=== PATIENT | female | born 1940 | race Caucasian/White ===

== ENCOUNTER 2017-05-15 10:40 | Inpatient (IN) | payer MEDICARE ==
[~2017-05-15 10:40] MED LIST: Warfarin 7.5 MG Tab PO SCH
[2017-05-15] MEDS ORDERED: Acetaminophen 325 MG Tab PO PRN (11:16)
[2017-05-15] MEDS: Azithromycin 500 MG in Sodium Chloride 0.9% 250 ML IV SCH (11:30)
[2017-05-15] MEDS: Sodium Chloride 0.9% 1,000 ML IV SCH ×2 (11:30→23:46)
[2017-05-15] MEDS ORDERED: traMADol 50 MG Tab PO PRN (13:25)
[2017-05-15] MEDS: Furosemide 40 MG Tab PO SCH (13:30)
[2017-05-15] MEDS ORDERED: Gabapentin 100 MG Cap PO SCH (14:00)
[2017-05-15] MEDS: cefTRIAXone 1 GM in Sodium Chloride 0.9% 100 ML IV SCH (14:28)
[2017-05-15] MEDS ORDERED: Furosemide 40 MG/4 ML VIAL IVPUSH ONE (15:15)
--- NOTE | 2017-05-15 15:22 | PCM.HP ---
H&P History of Present Illness - General Date of Service: 05/15/17 Admit Problem/Dx: Admission Diagnosis/Problem Admission Diagnosis/Problem Shortness of breath Source of Information: Patient, Group Home Records, RN History Limitations: Reports: Respiratory Distress - History of Present Illness Initial Comments - Free Text/Narative: 77 yr female presents with shortness of breath, hypoglycemia, shakes and states doesn't know what is wrong with her. Onset of Symptoms: Reports: Today Symptom Onset Date: 05/15/17 Severity: Severe Improves with: Reports: Rest, Other (oxygen) Worsens with: Reports: Movement Associated Symptoms: Reports: Fever/Chills, Shortness of Breath, Weakness. Denies: Chest Pain, Cough, Nausea/Vomiting - Related Data Allergies/Adverse Reactions: Allergies Allergy/AdvReac Type Severity Reaction Status Date / Time aspirin Allergy Nausea and Verified 06/09/14 15:14 Vomiting Penicillins Allergy Rash Verified 06/09/14 15:14 Home Medications: Home Meds Furosemide [Furosemide] 80 mg PO DAILY 08/19/13 [History] Gabapentin [Neurontin] 600 mg PO TID 08/19/13 [History] Simvastatin [Zocor] 20 mg PO BEDTIME 08/19/13 [History] metFORMIN [Glucophage] 500 mg PO BIDM 08/19/13 [History] Ascorbate Calcium [Vitamin C] 500 mg PO DAILY 06/10/14 [History] Insulin Glarg,Human.Rec.Analog [LantUS] 14 unit SQ BEDTIME 06/10/14 [History] Insulin Glarg,Human.Rec.Analog [Lantus] 24 units SQ DAILY 06/10/14 [History] Sertraline [Zoloft] 100 mg PO DAILY 06/10/14 [History] Acetaminophen [Tylenol Extra Strength] 1,000 mg PO BID 10/09/14 [History] Apixaban [Eliquis] 2.5 mg PO DAILY 10/09/14 [History] Multivitamin [Multivitamins] 1 each PO DAILY 10/09/14 [History] Omeprazole [Prilosec] 40 mg PO DAILY 10/09/14 [History] Vits A and D/White Pet/Lanolin [A + D Ointment] 1 applic TOP DAILY 10/09/14 [ History] Zinc Gluconate [Zinc] 50 mg PO DAILY 10/09/14 [History] traMADol HCl [Tramadol HCl] 50 mg PO BID PRN 10/09/14 [History] Past Medical History HEENT History: Reports: Hard of Hearing, Impaired Vision Cardiovascular History: Reports: Heart Failure, Hypertension Respiratory History: Reports: COPD Genitourinary History: Reports: Chronic Renal Insuffiency Musculoskeletal History: Reports: Arthritis Endocrine/Metabolic History: Reports: Diabetes, Type II Dermatologic History: Reports: Other (See Below) Other Dermatologic History: reddened area under breasts and abdominal fold Social & Family History - Tobacco Use Smoking Status *Q: Never Smoker Second Hand Smoke Exposure: No - Caffeine Use Caffeine Use: Reports: Coffee - Alcohol Use Days Per Week of Alcohol Use: 0 - Recreational Drug Use Recreational Drug Use: No - Living Situation & Occupation Living situation: Reports: , Extended Care Facility Occupation: Retired H&P Review of Systems - Review of Systems: Review Of Systems: See Below General: Reports: Weakness Cardiovascular: Reports: Dyspnea on Exertion Gastrointestinal: Reports: Other (staff report low blood sugar) Genitourinary: Reports: Incontinence Skin: Reports: Rash Exam - Exam Exam: See Below - Vital Signs Vital Signs: Last Vital Signs Temp 98.8 F 05/15/17 11:16 Pulse 123 H 05/15/17 11:16 Resp 18 05/15/17 11:16 BP 151/97 H 05/15/17 11:16 Pulse Ox 93 L 05/15/17 11:16 - Exam Quality Assessment: Supplemental Oxygen General: Alert, Oriented HEENT: Mucosa Moist & [place], Nares Patent Lungs: Clear to Auscultation, Decreased Breath Sounds Cardiovascular: Regular Rate, Regular Rhythm (Female) Exam: Deferred Rectal (Female) Exam: Deferred Extremities: Pedal Edema, Increased Warmth, Redness Skin: Warm, Dry, Rash, Other (rash under breasts and under abdominal fold) Neuro Extensive - Mental Status: Alert - Patient Data Lab Results Last 24 hrs: Laboratory Results - last 24 hr 05/15/17 05/15/17 Range/Units 09:50 11:14 POC Glucose 113 H (74-110) mg/dL B-Natriuretic Peptide 2836 H D (0-450) pg/mL *Q Meaningful Use (ADM) - VTE *Q VTE Criteria *Q: - Stroke *Q Stroke Criteria *Q: - AMI *Q AMI Criteria *Q: - Problem List (1) Pneumonia SNOMED Code(s): 918356641 ICD Code: J18.9 - PNEUMONIA, UNSPECIFIED ORGANISM Status: Acute Priority : High Current Visit: Yes Onset Date: 05/15/17 Qualifiers: Laterality: left Lung location: lower lobe of lung (2) Diabetes mellitus type 2 SNOMED Code(s): 09427467 ICD Code: E11.9 - TYPE 2 DIABETES MELLITUS WITHOUT COMPLICATIONS Status: Acute Priority: High Current Visit: No Problem Details: 12/03/2013 Blood sugars low. Will adjust insulin Problem List Initiated/Reviewed/Updated: Yes Orders Last 24hrs: Active Orders 24 hr Category Date Time Status Patient Status [ADT] Routine ADT 05/15/17 11:16 Active Blood Glucose Check, Bedside [RC] QIDACANDBED Care 05/15/17 11:25 Active EKG Documentation Completion [RC] ASDIRECTED Care 05/15/17 11:22 Active Height and Weight [RC] DAILY Care 05/15/17 11:16 Active Intake and Output [RC] QSHIFT Care 05/15/17 11:19 Active Oxygen Therapy [RC] Q12H Care 05/15/17 11:16 Active VTE/DVT Education [RC] Per Unit Routine Care 05/15/17 11:16 Active Vital Signs [RC] Q4H Care 05/15/17 11:16 Active Consistent Carbohydrate Diet [DIET] Diet 05/15/17 Lunch Ordered Chest 1V Frontal [CR] Routine Exams 05/15/17 Taken UA W/MICROSCOPIC [URIN] Routine Lab 05/15/17 14:13 Uncollected Acetaminophen [Tylenol Extra Strength] Med 05/15/17 20:00 Active 1,000 mg PO BID Acetaminophen [Tylenol] Med 05/15/17 11:16 Active 650 mg PO Q4H PRN Ascorbic Acid [Vitamin C] Med 05/16/17 08:00 Active 500 mg PO DAILY Azithromycin [Zithromax] 500 mg Med 05/15/17 11:30 Active Sodium Chloride 0.9% [Normal Saline] 250 ml IV DAILY Ferrous Sulfate Med 05/15/17 20:00 Active 325 mg PO BID Furosemide [Lasix] Med 05/15/17 15:15 Once 40 mg IVPUSH NOW ONE Furosemide [Lasix] Med 05/15/17 13:30 Active 80 mg PO DAILY Insulin Aspart [NovoLOG] Med 05/15/17 20:00 Active 0 unit SUBCUT TID Insulin Detemir [Levemir] Med 05/15/17 20:00 Active 0 - 24 unit SUBCUT BID Levothyroxine [Synthroid] Med 05/16/17 08:00 Active 88 mcg PO DAILY Lisinopril [Prinivil] Med 05/15/17 15:15 Ordered 10 mg PO DAILY Multivitamins w-Iron/Ca/FA/Min [Thera M Plus] Med 05/16/17 08:00 Active 1 tab PO DAILY Nystatin [Nystop] Med 05/15/17 20:00 Active 0 - 1 gm TOP BID PRN Omeprazole Med 05/16/17 08:00 Active 40 mg PO DAILY Potassium Chloride [Klor-Con M20] Med 05/16/17 08:00 Active 20 meq PO DAILY Pregabalin [Lyrica] Med 05/15/17 20:00 Active 150 mg PO TID Sertraline [Zoloft] Med 05/16/17 08:00 Active 100 mg PO DAILY Sertraline [Zoloft] Med 05/16/17 08:00 Active 50 mg PO DAILY Simvastatin [Zocor] Med 05/15/17 20:00 Active 20 mg PO BEDTIME Sodium Chloride 0.9% [Normal Saline] 1,000 ml Med 05/15/17 11:30 Active IV ASDIRECTED Warfarin [Coumadin] Med 05/16/17 14:33 Active 5 mg PO SuTuThSa@1800 Warfarin [Coumadin] Med 05/15/17 18:00 Active 7.5 mg PO MoWeFr@1800 Zinc Gluconate [Zinc] Med 05/16/17 08:00 Active 50 mg PO DAILY cefTRIAXone [Rocephin] 1 gm Med 05/15/17 14:00 Active Sodium Chloride 0.9% [Normal Saline] 100 ml IV DAILY metFORMIN [Glucophage] Med 05/16/17 08:00 Hold 500 mg PO BIDMEALS traMADol [Ultram] Med 05/15/17 20:00 Active 50 mg PO TID Resuscitation Status Routine Resus Stat 05/15/17 11:16 Ordered Medication Orders Acetaminophen (Tylenol) 650 mg PO Q4H PRN PRN Reason: Pain (Mild 1-3)/fever Acetaminophen (Tylenol Extra Strength) 1,000 mg PO BID [facility] Ascorbic Acid (Vitamin C) 500 mg PO DAILY [facility] Ferrous Sulfate (Ferrous Sulfate) 325 mg PO BID [facility] Furosemide (Lasix) 80 mg PO DAILY [facility] Furosemide (Lasix) 40 mg IVPUSH NOW ONE Stop: 05/15/17 15:16 Azithromycin 500 mg/ Sodium (Chloride) 250 mls @ 250 mls/hr IV DAILY [facility] Last Admin: 05/15/17 11:30 Dose: 250 mls/hr Sodium Chloride (Normal Saline) 1,000 mls @ 75 mls/hr IV ASDIRECTED [facility] Last Admin: 05/15/17 11:30 Dose: 75 mls/hr Ceftriaxone Sodium 1 gm/ (Sodium Chloride) 100 mls @ 200 mls/hr IV DAILY [facility] Last Admin: 05/15/17 14:28 Dose: 200 mls/hr Insulin Aspart (Novolog) 0 unit SUBCUT TID [facility] PRN Reason: Protocol Insulin Detemir (Levemir) 0 - 24 unit SUBCUT BID [facility] Levothyroxine Sodium (Synthroid) 88 mcg PO DAILY [facility] Lisinopril (Prinivil) 10 mg PO DAILY [facility] Metformin HCl (Glucophage) 500 mg PO BIDMEALS [facility] Multivitamins/Minerals (Thera M Plus) 1 tab PO DAILY [facility] Nystatin (Nystop) 0 - 1 gm TOP BID PRN PRN Reason: FUNGAL INFECTION Omeprazole (Omeprazole) 40 mg PO DAILY [facility] Potassium Chloride (Klor-Con M20) 20 meq PO DAILY [facility] Pregabalin (Lyrica) 150 mg PO TID [facility] Sertraline HCl (Zoloft) 50 mg PO DAILY [facility] Sertraline HCl (Zoloft) 100 mg PO DAILY [facility] Simvastatin (Zocor) 20 mg PO BEDTIME [facility] Tramadol HCl (Ultram) 50 mg PO TID [facility] Warfarin Sodium (Coumadin) 5 mg PO SuTuThSa@1800 [facility] Warfarin Sodium (Coumadin) 7.5 mg PO MoWeFr@1800 [facility] Zinc Gluconate (Zinc) 50 mg PO DAILY [facility] Assessment/Plan Comment:: AP: Pneumonia: Chest-x-ray, CBC, EKG, CMP, blood cultures X2, UA, BNP. IV Nacl @ 75 cc/hr Azithromycin 500 mg IV q 24 hr. Rocephin 1 gm IV q 24 hr. Oxygen to keep SpO2 >91%. Diabetes Type 2: Blood sugars ac and hs Insulin BID sq. Candidiasis to skin: Keep area dry, Nystatin powder to area as ordered. DVT prevention: Coumadin as ordered PT/INR per protocol.
[2017-05-15] MEDS: Lisinopril 10 MG Tab PO SCH (15:51)
[2017-05-15] MEDS ORDERED: metFORMIN 1,000 MG Tab PO SCH (17:00)
[2017-05-15] MEDS: Warfarin 7.5 MG Tab PO SCH (17:21)
[2017-05-15] MEDS: Acetaminophen 500 MG Tab PO SCH (19:56)
[2017-05-15] MEDS: traMADol 50 MG Tab PO SCH (19:56)
[2017-05-15] MEDS: Pregabalin 75 MG Cap PO SCH (19:56)
[2017-05-15] MEDS: Simvastatin 20 MG Tab PO SCH (19:56)
[2017-05-15] MEDS ORDERED: INSULIN GLARGINE SQ SCH (20:00)
[2017-05-15] MEDS ORDERED: [UNRECOGNIZED DRUG - OTHER] SQ SCH (20:00)
[2017-05-15] MEDS ORDERED: Nystatin Topical Powder 15 GM Bottle TOP PRN (20:00)
[2017-05-15] MEDS ORDERED: Insulin Aspart 100 Units/ML 3 ML Pen SUBCUT SCH (20:00)
[2017-05-15] MEDS ORDERED: Simvastatin 40 MG Tab PO SCH (20:00)
[2017-05-15] MEDS ORDERED: Ferrous Sulfate 325 MG Tab PO SCH (20:00)
[2017-05-15] MEDS: Insulin Detemir 100 Units/ML 3 ML Pen SUBCUT SCH (20:04)
--- NOTE | 2017-05-15 20:40 | CR ---
DATE OF SERVICE: 05/15/17 CLINICAL DATA: ELEVATED WBC AP PORTABLE CHEST: Comparison is made to a prior exam dated 02/23/15. There is breathing motion artifact. The heart is enlarged. The aorta is ectatic. The pulmonary vasculature does appear prominent with some cephalization of flow consistent with pulmonary venous congestion. The proximal pulmonary arteries also appear prominent suggesting pulmonary hypertension. The patient has taken a poor inspiration. There is increased density in the left lung base consistent with basilar atelectasis or infiltrate. Pneumonia should be considered. There is slight blunting of both costophrenic angles suggesting small bilateral pleural effusions. The exam is otherwise unchanged from the prior. [id number] [facility]
[2017-05-16] MEDS: Furosemide 40 MG Tab PO SCH (07:59)
[2017-05-16] MEDS: Ferrous Sulfate 325 MG Tab PO SCH ×2 (07:59→17:31)
[2017-05-16] MEDS: Potassium Chloride 20 MEQ Tab.ER PO SCH (07:59)
[2017-05-16] MEDS ORDERED: APIXABAN 2.5 MG PO SCH (08:00)
[2017-05-16] MEDS: Zinc (Zinc Gluconate) 50 MG Tab PO SCH (08:00)
[2017-05-16] MEDS ORDERED: LANOLIN TOP SCH (08:00)
[2017-05-16] MEDS: Levothyroxine 88 MCG Tab PO SCH (08:00)
[2017-05-16] MEDS ORDERED: VITS A AND D TOP SCH (08:00)
[2017-05-16] MEDS ORDERED: WHITE PET TOP SCH (08:00)
[2017-05-16] MEDS ORDERED: Sertraline 100 MG Tab PO SCH (08:00)
[2017-05-16] MEDS ORDERED: Non-Formulary Medication 1 Each (Multivitamin [Multivitamins] 1 EACH) PO SCH (08:00)
[2017-05-16] MEDS: Multivitamins with Iron/Calcium/Folic Acid/Minerals Tab PO SCH (08:00)
[2017-05-16] MEDS ORDERED: [UNRECOGNIZED DRUG - OTHER] TOP SCH (08:00)
[2017-05-16] MEDS ORDERED: ZINC GLUCONATE 50 MG PO SCH (08:00)
[2017-05-16] MEDS: Acetaminophen 500 MG Tab PO SCH ×2 (08:00→20:02)
[2017-05-16] MEDS ORDERED: INSULIN GLARGINE SQ SCH (08:00)
[2017-05-16] MEDS ORDERED: Non-Formulary Medication 1 Each (Ascorbate Calcium [Vitamin C] 500 MG) PO SCH (08:00)
[2017-05-16] MEDS ORDERED: metFORMIN 500 MG Tab PO SCH (08:00)
[2017-05-16] MEDS: Pregabalin 75 MG Cap PO SCH ×3 (08:00→20:02)
[2017-05-16] MEDS: Sertraline 50 MG Tab PO SCH (08:01)
[2017-05-16] MEDS: Sertraline 100 MG Tab PO SCH (08:01)
[2017-05-16] MEDS: traMADol 50 MG Tab PO SCH ×3 (08:02→20:02)
[2017-05-16] MEDS: Lisinopril 10 MG Tab PO SCH (08:03)
[2017-05-16] MEDS: Ascorbic Acid 500 MG Tab PO SCH (08:08)
[2017-05-16] MEDS: Omeprazole 40 MG Cap.CR PO SCH (08:13)
[2017-05-16] MEDS: Azithromycin 500 MG in Sodium Chloride 0.9% 250 ML IV SCH (08:22)
[2017-05-16] MEDS: Insulin Aspart 100 Units/ML 3 ML Pen SUBCUT SCH ×3 (08:27→17:29)
[2017-05-16] MEDS: Insulin Detemir 100 Units/ML 3 ML Pen SUBCUT SCH ×2 (08:27→20:01)
[2017-05-16] MEDS: cefTRIAXone 1 GM in Sodium Chloride 0.9% 100 ML IV SCH (10:16)
[2017-05-16] MEDS ORDERED: Sodium Chloride 0.45% 1,000 ML IV SCH (10:30)
[2017-05-16] MEDS: Warfarin 5 MG Tab PO SCH ×2 (16:20→17:31)
[2017-05-16] MEDS: Simvastatin 20 MG Tab PO SCH (20:03)
--- NOTE | 2017-05-17 05:02 | PCM.PN ---
- General Info Date of Service: 05/16/17 Admission Dx/Problem (Free Text): Admission Diagnosis/Problem Admission Diagnosis/Problem Shortness of breath Subjective Update: 08:30 Pt awake, starting breakfast. States she is feeling well today and doesn 't remember yesterday or coming to hospital. Functional Status: Reports: Pain Controlled - Review of Systems General: Reports: Weakness HEENT: Reports: Glasses Pulmonary: Reports: No Symptoms Cardiovascular: Reports: No Symptoms Gastrointestinal: Reports: No Symptoms Genitourinary: Reports: No Symptoms - Patient Data Vitals - Most Recent: Last Vital Signs Temp 97.1 F 05/16/17 20:00 Pulse 65 05/16/17 20:00 Resp 20 05/17/17 04:00 BP 147/57 H 05/16/17 20:00 Pulse Ox 95 05/16/17 20:00 Weight - Most Recent: 348 lb 2 oz I&O - Last 24 Hours: Intake & Output 05/16/17 05/16/17 05/17/17 14:59 22:59 06:59 Intake Total 1910 Output Total 1125 Balance 785 Lab Results Last 24 Hours: Laboratory Results - last 24 hr 05/16/17 05/16/17 05/16/17 Range/Units 07:12 09:00 09:00 WBC 14.1 H D (4.0-11.0) K/uL RBC 3.57 L (3.80-5.80) M/uL Hgb 11.6 (11.5-16.5) g/dL Hct 38.6 (37.0-47.0) % MCV 108 H (76-96) fL MCH 32.5 H (27.0-32.0) pg MCHC 30.1 L (31.0-35.0) g/dL RDW 17.2 H (11.0-16.0) % Plt Count 164 (150-500) K/uL MPV 10.5 H (6.0-10.0) fL Neut % (Auto) 83.7 H (45.0-70.0) % Lymph % (Auto) 11.0 L (20.0-40.0) % [place] % (Auto) 4.7 (3.0-10.0) % Eos % (Auto) 0.5 L (1.0-5.0) % Baso % (Auto) 0.1 (0.0-0.5) % Neut # (Auto) 11.81 H (2.00-7.50) K/uL Lymph # (Auto) 1.56 (1.50-4.00) K/uL [place] # (Auto) 0.67 (0.20-0.80) K/uL Eos # (Auto) 0.07 (0.04-0.40) K/uL Baso # (Auto) 0.01 L (0.02-0.10) K/uL PT 21.0 H D (9.0-11.5) sec INR 2.2 D (1.0-3.5) Sodium (136-145) mmol/L Potassium (3.5-5.1) mmol/L Chloride (98-107) mmol/L Carbon Dioxide (21.0-32.0) mmol/L Anion Gap (5.0-15.0) mmol/L BUN (8-26) mg/dL Creatinine (0.55-1.02) mg/dL Est Cr Clr Drug Dosing Estimated GFR (MDRD) (>60) MLS/MIN BUN/Creatinine Ratio (6-25) Glucose (74-100) mg/dL POC Glucose 152 H (74-110) mg/dL Lactic Acid (0.90-1.70) mmol/L Calcium (8.5-10.1) mg/dL Total Bilirubin (0.0-1.0) mg/dL AST (15-37) U/L ALT (12-78) U/L Alkaline Phosphatase (46-116) U/L B-Natriuretic Peptide (0-450) pg/mL Total Protein (6.4-8.2) g/dL Albumin (3.4-5.0) g/dL Globulin (2.2-4.2) g/dL Albumin/Globulin Ratio (0.8-2.0) 05/16/17 05/16/17 05/16/17 Range/Units 09:00 09:00 11:11 WBC (4.0-11.0) K/uL RBC (3.80-5.80) M/uL Hgb (11.5-16.5) g/dL Hct (37.0-47.0) % MCV (76-96) fL MCH (27.0-32.0) pg MCHC (31.0-35.0) g/dL RDW (11.0-16.0) % Plt Count (150-500) K/uL MPV (6.0-10.0) fL Neut % (Auto) (45.0-70.0) % Lymph % (Auto) (20.0-40.0) % [place] % (Auto) (3.0-10.0) % Eos % (Auto) (1.0-5.0) % Baso % (Auto) (0.0-0.5) % Neut # (Auto) (2.00-7.50) K/uL Lymph # (Auto) (1.50-4.00) K/uL [place] # (Auto) (0.20-0.80) K/uL Eos # (Auto) (0.04-0.40) K/uL Baso # (Auto) (0.02-0.10) K/uL PT (9.0-11.5) sec INR (1.0-3.5) Sodium 148 H (136-145) mmol/L Potassium 4.1 (3.5-5.1) mmol/L Chloride 102 (98-107) mmol/L Carbon Dioxide 42.5 H (21.0-32.0) mmol/L Anion Gap 7.6 (5.0-15.0) mmol/L BUN 33 H D (8-26) mg/dL Creatinine 1.45 H (0.55-1.02) mg/dL Est Cr Clr Drug Dosing TNP Estimated GFR (MDRD) 35 L (>60) MLS/MIN BUN/Creatinine Ratio 22.8 (6-25) Glucose 231 H D (74-100) mg/dL POC Glucose 208 H (74-110) mg/dL Lactic Acid 1.35 (0.90-1.70) mmol/L Calcium 8.2 L (8.5-10.1) mg/dL Total Bilirubin 0.2 D (0.0-1.0) mg/dL AST 15 (15-37) U/L ALT 13 (12-78) U/L Alkaline Phosphatase 73 (46-116) U/L B-Natriuretic Peptide 5984 H D (0-450) pg/mL Total Protein 6.1 L (6.4-8.2) g/dL Albumin 2.4 L (3.4-5.0) g/dL Globulin 3.7 (2.2-4.2) g/dL Albumin/Globulin Ratio 0.7 L (0.8-2.0) 05/16/17 Range/Units 16:20 WBC (4.0-11.0) K/uL RBC (3.80-5.80) M/uL Hgb (11.5-16.5) g/dL Hct (37.0-47.0) % MCV (76-96) fL MCH (27.0-32.0) pg MCHC (31.0-35.0) g/dL RDW (11.0-16.0) % Plt Count (150-500) K/uL MPV (6.0-10.0) fL Neut % (Auto) (45.0-70.0) % Lymph % (Auto) (20.0-40.0) % [place] % (Auto) (3.0-10.0) % Eos % (Auto) (1.0-5.0) % Baso % (Auto) (0.0-0.5) % Neut # (Auto) (2.00-7.50) K/uL Lymph # (Auto) (1.50-4.00) K/uL [place] # (Auto) (0.20-0.80) K/uL Eos # (Auto) (0.04-0.40) K/uL Baso # (Auto) (0.02-0.10) K/uL PT (9.0-11.5) sec INR (1.0-3.5) Sodium (136-145) mmol/L Potassium (3.5-5.1) mmol/L Chloride (98-107) mmol/L Carbon Dioxide (21.0-32.0) mmol/L Anion Gap (5.0-15.0) mmol/L BUN (8-26) mg/dL Creatinine (0.55-1.02) mg/dL Est Cr Clr Drug Dosing Estimated GFR (MDRD) (>60) MLS/MIN BUN/Creatinine Ratio (6-25) Glucose (74-100) mg/dL POC Glucose 143 H (74-110) mg/dL Lactic Acid (0.90-1.70) mmol/L Calcium (8.5-10.1) mg/dL Total Bilirubin (0.0-1.0) mg/dL AST (15-37) U/L ALT (12-78) U/L Alkaline Phosphatase (46-116) U/L B-Natriuretic Peptide (0-450) pg/mL Total Protein (6.4-8.2) g/dL Albumin (3.4-5.0) g/dL Globulin (2.2-4.2) g/dL Albumin/Globulin Ratio (0.8-2.0) [place] Results Last 24 Hours: Microbiology 05/15/17 Unknown Urine Culture - Preliminary Urine, Marshall Cath ([place]) No Growth Med Orders - Current: Current Medications Acetaminophen (Tylenol Extra Strength) 1,000 mg PO BID [facility] Last Admin: 05/16/17 20:02 Dose: 1,000 mg Ascorbic Acid (Vitamin C) 500 mg PO DAILY [facility] Last Admin: 05/16/17 08:08 Dose: 500 mg Ferrous Sulfate (Ferrous Sulfate) 325 mg PO BID@0800,1700 [facility] Last Admin: 05/16/17 17:31 Dose: 325 mg Furosemide (Lasix) 80 mg PO DAILY [facility] Last Admin: 05/16/17 07:59 Dose: 80 mg Azithromycin 500 mg/ Sodium (Chloride) 250 mls @ 250 mls/hr IV DAILY [facility] Last Admin: 05/16/17 08:22 Dose: 250 mls/hr Ceftriaxone Sodium 1 gm/ (Sodium Chloride) 100 mls @ 200 mls/hr IV DAILY [facility] Last Admin: 05/16/17 10:16 Dose: 200 mls/hr Sodium Chloride (Sodium Chloride 0.45%) 1,000 mls @ 0 mls/hr IV ASDIRECTED [facility] PRN Reason: KVO Last Admin: 05/16/17 10:44 Dose: 30 mls/hr Insulin Aspart (Novolog) 0 unit SUBCUT 0800,1200,1700 [facility] PRN Reason: Protocol Last Admin: 05/16/17 17:29 Dose: 3 units Insulin Detemir (Levemir) 0 - 24 unit SUBCUT BID [facility] Last Admin: 05/16/17 20:01 Dose: 14 unit Levothyroxine Sodium (Synthroid) 88 mcg PO DAILY [facility] Last Admin: 05/16/17 08:00 Dose: 88 mcg Lisinopril (Prinivil) 10 mg PO DAILY [facility] Last Admin: 05/16/17 08:03 Dose: 10 mg [facility]) [facility] Multivitamins/Minerals (Thera M Plus) 1 tab PO DAILY [facility] Last Admin: 05/16/17 08:00 Dose: 1 tab Nystatin (Nystop) 0 - 1 gm TOP BID PRN PRN Reason: FUNGAL INFECTION Omeprazole (Omeprazole) 40 mg PO DAILY [facility] Last Admin: 05/16/17 08:13 Dose: 40 mg Potassium Chloride (Klor-Con M20) 20 meq PO DAILY [facility] Last Admin: 05/16/17 07:59 Dose: 20 meq Pregabalin (Lyrica) 150 mg PO TID [facility] Last Admin: 05/16/17 20:02 Dose: 150 mg Sertraline HCl (Zoloft) 50 mg PO DAILY [facility] Last Admin: 05/16/17 08:01 Dose: 50 mg Sertraline HCl (Zoloft) 100 mg PO DAILY [facility] Last Admin: 05/16/17 08:01 Dose: 100 mg Simvastatin (Zocor) 20 mg PO BEDTIME [facility] Last Admin: 05/16/17 20:03 Dose: 20 mg Tramadol HCl (Ultram) 50 mg PO TID [facility] Last Admin: 05/16/17 20:02 Dose: 50 mg Warfarin Sodium (Coumadin) 5 mg PO SuTuThSa@1800 [facility] Last Admin: 05/16/17 17:31 Dose: 5 mg Warfarin Sodium (Coumadin) 7.5 mg PO MoWeFr@1800 [facility] Last Admin: 05/15/17 17:21 Dose: 7.5 mg Zinc Gluconate (Zinc) 50 mg PO DAILY [facility] Last Admin: 05/16/17 08:00 Dose: 50 mg Discontinued Medications Acetaminophen (Tylenol) 650 mg PO Q4H PRN PRN Reason: Pain (Mild 1-3)/fever Ferrous Sulfate (Ferrous Sulfate) 325 mg PO BID [facility] Last Admin: 05/15/17 20:02 Dose: Not Given Furosemide (Lasix) 40 mg IVPUSH NOW ONE Stop: 05/15/17 15:16 Last Admin: 05/15/17 15:51 Dose: 40 mg Gabapentin (Neurontin) 600 mg PO TID [facility] Last Admin: 05/16/17 14:05 Dose: Not Given Sodium Chloride (Normal Saline) 1,000 mls @ 75 mls/hr IV ASDIRECTED [facility] Last Admin: 05/15/17 23:46 Dose: 75 mls/hr Insulin Aspart (Novolog) 0 unit SUBCUT TID [facility] PRN Reason: Protocol Last Admin: 05/16/17 00:49 Dose: Not Given Tramadol HCl (Ultram) 50 mg PO BID PRN PRN Reason: Pain Warfarin Sodium (Coumadin) 7.5 mg PO MoWeFr [facility] Last Admin: 05/16/17 11:45 Dose: Not Given - Exam Quality Assessment: Urine Catheter General: Alert, Cooperative, No Acute Distress HEENT: Mucous Membr. Moist/[place] Neck: Supple Lungs: Normal Respiratory Effort, Decreased Breath Sounds. No: Crackles, Rhonchi Cardiovascular: Regular Rate, Regular Rhythm GI/Abdominal Exam: Normal Bowel Sounds, Soft Extremities: Normal Capillary Refill, Other (Large, fleshy arms and legs, hard for pt to move legs.) Peripheral Pulses: 2+: Radial (L), Radial (R), Dorsalis Pedis (L), Dorsalis Pedis (R) Skin: Warm, Dry, Rash (rash under breasts and under abdominal fold, order for applying nystatin) Wound/Incisions: Other (erythema to left thigh improved.) Neurological: Normal Speech Psy/Mental Status: Alert, Normal Affect - Problem List & Annotations (1) Pneumonia SNOMED Code(s): 317905867 Code(s): J18.9 - PNEUMONIA, UNSPECIFIED ORGANISM Status: Acute Priority: High Current Visit: Yes Onset Date: 05/15/17 Qualifiers: Laterality: left Lung location: lower lobe of lung (2) Diabetes mellitus type 2 SNOMED Code(s): 61563389 Code(s): E11.9 - TYPE 2 DIABETES MELLITUS WITHOUT COMPLICATIONS Status: Acute Priority: High Current Visit: No Annotation/Comment:: 05/16/17 Blood sugars monitored ac and hs. Novolog sliding scale utilized. - Problem List Review Problem List Initiated/Reviewed/Updated: Yes - My Orders Last 24 Hours: My Active Orders 05/16/17 08:00 Ascorbic Acid [Vitamin C] 500 mg PO DAILY Ferrous Sulfate 325 mg PO BID@0800,1700 Insulin Aspart [NovoLOG] 0 unit SUBCUT 0800,1200,1700 Levothyroxine [Synthroid] 88 mcg PO DAILY Multivitamins w-Iron/Ca/FA/Min [Thera M Plus] 1 tab PO DAILY Omeprazole 40 mg PO DAILY Potassium Chloride [Klor-Con M20] 20 meq PO DAILY Sertraline [Zoloft] 100 mg PO DAILY Sertraline [Zoloft] 50 mg PO DAILY Zinc Gluconate [Zinc] 50 mg PO DAILY metFORMIN [Glucophage] 500 mg PO BIDMEALS 05/16/17 10:30 Sodium Chloride 0.45% 1,000 ml IV ASDIRECTED 05/16/17 13:42 CULTURE MRSA SURVEY [RM] Routine 05/16/17 14:33 Warfarin [Coumadin] 5 mg PO SuTuThSa@1800 05/17/17 07:00 B-TYPE NATRIURETIC PEPTIDE,BNP [CHEM] Routine BASIC METABOLIC PANEL,BMP [CHEM] Routine CBC WITH AUTO DIFF [HEME] Routine - Assessment Assessment:: 05-16-17 Pneumonia: Improved WBC today. Pt alert today and talkative and feeling better. Diabetes: Impaired skin condition: - Plan Plan:: 05-16-17 AP: Pneumonia: CBC, BMP, BNP in am. Sodium elevated will change IV fluid to 0.45% Nacl IV 0.45 Nacl @ TKO Azithromycin 500 mg IV q 24 hr. Continue, WBC improved Rocephin 1 gm IV q 24 hr. Oxygen to keep SpO2 >91%. Diabetes Type 2: Blood sugars ac and hs Levemir Insulin BID sq. Continue w novolog sliding scale. Candidiasis to skin: Keep area dry, Nystatin powder to area as ordered. Marshall catheter started, will assist with prevention of skin breakdown. DVT prevention: Coumadin as ordered PT/INR per protocol.
[2017-05-17] MEDS: Zinc (Zinc Gluconate) 50 MG Tab PO SCH (08:11)
[2017-05-17] MEDS: Omeprazole 40 MG Cap.CR PO SCH (08:11)
[2017-05-17] MEDS: Levothyroxine 88 MCG Tab PO SCH (08:11)
[2017-05-17] MEDS: Sertraline 100 MG Tab PO SCH (08:12)
[2017-05-17] MEDS: Sertraline 50 MG Tab PO SCH (08:12)
[2017-05-17] MEDS: Multivitamins with Iron/Calcium/Folic Acid/Minerals Tab PO SCH (08:12)
[2017-05-17] MEDS: Ferrous Sulfate 325 MG Tab PO SCH ×2 (08:12→17:13)
[2017-05-17] MEDS: Potassium Chloride 20 MEQ Tab.ER PO SCH (08:12)
[2017-05-17] MEDS: Furosemide 40 MG Tab PO SCH (08:12)
[2017-05-17] MEDS: traMADol 50 MG Tab PO SCH ×3 (08:12→19:55)
[2017-05-17] MEDS: Ascorbic Acid 500 MG Tab PO SCH (08:12)
[2017-05-17] MEDS: Acetaminophen 500 MG Tab PO SCH ×2 (08:13→19:55)
[2017-05-17] MEDS: Lisinopril 10 MG Tab PO SCH (08:13)
[2017-05-17] MEDS: Pregabalin 75 MG Cap PO SCH ×3 (08:20→19:55)
[2017-05-17] MEDS: Azithromycin 500 MG in Sodium Chloride 0.9% 250 ML IV SCH (08:22)
[2017-05-17] MEDS ORDERED: Furosemide 20 MG/2 ML VIAL IVPUSH ONE (08:25)
[2017-05-17] MEDS: Insulin Detemir 100 Units/ML 3 ML Pen SUBCUT SCH ×2 (08:31→19:56)
[2017-05-17] MEDS: Insulin Aspart 100 Units/ML 3 ML Pen SUBCUT SCH ×3 (08:31→17:13)
--- NOTE | 2017-05-17 08:35 | PCM.PN ---
- General Info Date of Service: 05/17/17 Admission Dx/Problem (Free Text): Admission Diagnosis/Problem Admission Diagnosis/Problem Shortness of breath Subjective Update: Pt states she is feeling better. States slept well from midnight to this am. States some pain to joints and back with arthritis. Functional Status: Reports: Tolerating Diet - Review of Systems General: Reports: Weakness HEENT: Reports: No Symptoms, Glasses Pulmonary: Denies: Cough, Sputum Cardiovascular: Reports: No Symptoms Gastrointestinal: Reports: Diarrhea. Denies: Nausea, Vomiting Genitourinary: Reports: Other (putnam catheter) Musculoskeletal: Reports: Back Pain Skin: Reports: Rash Neurological: Reports: No Symptoms Psychiatric: Reports: No Symptoms - Patient Data Vitals - Most Recent: Last Vital Signs Temp 97.1 F 05/16/17 20:00 Pulse 65 05/16/17 20:00 Resp 20 05/17/17 04:00 BP 151/82 H 05/17/17 08:13 Pulse Ox 95 05/16/17 20:00 Weight - Most Recent: 348 lb 2 oz I&O - Last 24 Hours: Intake & Output 05/16/17 05/17/17 05/17/17 22:59 06:59 14:59 Intake Total 1910 669 Output Total 1125 700 Balance 785 -31 Lab Results Last 24 Hours: Laboratory Results - last 24 hr 05/16/17 05/16/17 05/16/17 Range/Units 09:00 09:00 09:00 WBC 14.1 H D (4.0-11.0) K/uL RBC 3.57 L (3.80-5.80) M/uL Hgb 11.6 (11.5-16.5) g/dL Hct 38.6 (37.0-47.0) % MCV 108 H (76-96) fL MCH 32.5 H (27.0-32.0) pg MCHC 30.1 L (31.0-35.0) g/dL RDW 17.2 H (11.0-16.0) % Plt Count 164 (150-500) K/uL MPV 10.5 H (6.0-10.0) fL Neut % (Auto) 83.7 H (45.0-70.0) % Lymph % (Auto) 11.0 L (20.0-40.0) % [place] % (Auto) 4.7 (3.0-10.0) % Eos % (Auto) 0.5 L (1.0-5.0) % Baso % (Auto) 0.1 (0.0-0.5) % Neut # (Auto) 11.81 H (2.00-7.50) K/uL Lymph # (Auto) 1.56 (1.50-4.00) K/uL [place] # (Auto) 0.67 (0.20-0.80) K/uL Eos # (Auto) 0.07 (0.04-0.40) K/uL Baso # (Auto) 0.01 L (0.02-0.10) K/uL PT 21.0 H D (9.0-11.5) sec INR 2.2 D (1.0-3.5) Sodium 148 H (136-145) mmol/L Potassium 4.1 (3.5-5.1) mmol/L Chloride 102 (98-107) mmol/L Carbon Dioxide 42.5 H (21.0-32.0) mmol/L Anion Gap 7.6 (5.0-15.0) mmol/L BUN 33 H D (8-26) mg/dL Creatinine 1.45 H (0.55-1.02) mg/dL Est Cr Clr Drug Dosing TNP Estimated GFR (MDRD) 35 L (>60) MLS/MIN BUN/Creatinine Ratio 22.8 (6-25) Glucose 231 H D (74-100) mg/dL POC Glucose (74-110) mg/dL Lactic Acid (0.90-1.70) mmol/L Calcium 8.2 L (8.5-10.1) mg/dL Total Bilirubin 0.2 D (0.0-1.0) mg/dL AST 15 (15-37) U/L ALT 13 (12-78) U/L Alkaline Phosphatase 73 (46-116) U/L B-Natriuretic Peptide 5984 H D (0-450) pg/mL Total Protein 6.1 L (6.4-8.2) g/dL Albumin 2.4 L (3.4-5.0) g/dL Globulin 3.7 (2.2-4.2) g/dL Albumin/Globulin Ratio 0.7 L (0.8-2.0) 05/16/17 05/16/17 05/16/17 Range/Units 09:00 11:11 16:20 WBC (4.0-11.0) K/uL RBC (3.80-5.80) M/uL Hgb (11.5-16.5) g/dL Hct (37.0-47.0) % MCV (76-96) fL MCH (27.0-32.0) pg MCHC (31.0-35.0) g/dL RDW (11.0-16.0) % Plt Count (150-500) K/uL MPV (6.0-10.0) fL Neut % (Auto) (45.0-70.0) % Lymph % (Auto) (20.0-40.0) % [place] % (Auto) (3.0-10.0) % Eos % (Auto) (1.0-5.0) % Baso % (Auto) (0.0-0.5) % Neut # (Auto) (2.00-7.50) K/uL Lymph # (Auto) (1.50-4.00) K/uL [place] # (Auto) (0.20-0.80) K/uL Eos # (Auto) (0.04-0.40) K/uL Baso # (Auto) (0.02-0.10) K/uL PT (9.0-11.5) sec INR (1.0-3.5) Sodium (136-145) mmol/L Potassium (3.5-5.1) mmol/L Chloride (98-107) mmol/L Carbon Dioxide (21.0-32.0) mmol/L Anion Gap (5.0-15.0) mmol/L BUN (8-26) mg/dL Creatinine (0.55-1.02) mg/dL Est Cr Clr Drug Dosing Estimated GFR (MDRD) (>60) MLS/MIN BUN/Creatinine Ratio (6-25) Glucose (74-100) mg/dL POC Glucose 208 H 143 H (74-110) mg/dL Lactic Acid 1.35 (0.90-1.70) mmol/L Calcium (8.5-10.1) mg/dL Total Bilirubin (0.0-1.0) mg/dL AST (15-37) U/L ALT (12-78) U/L Alkaline Phosphatase (46-116) U/L B-Natriuretic Peptide (0-450) pg/mL Total Protein (6.4-8.2) g/dL Albumin (3.4-5.0) g/dL Globulin (2.2-4.2) g/dL Albumin/Globulin Ratio (0.8-2.0) 05/17/17 05/17/17 Range/Units 07:10 07:10 WBC 8.4 D (4.0-11.0) K/uL RBC 3.45 L (3.80-5.80) M/uL Hgb 11.5 (11.5-16.5) g/dL Hct 37.1 (37.0-47.0) % MCV 108 H (76-96) fL MCH 33.3 H (27.0-32.0) pg MCHC 31.0 (31.0-35.0) g/dL RDW 17.0 H (11.0-16.0) % Plt Count 159 (150-500) K/uL MPV 10.3 H (6.0-10.0) fL Neut % (Auto) 67.1 (45.0-70.0) % Lymph % (Auto) 21.4 (20.0-40.0) % [place] % (Auto) 8.2 (3.0-10.0) % Eos % (Auto) 3.2 (1.0-5.0) % Baso % (Auto) 0.1 (0.0-0.5) % Neut # (Auto) 5.64 (2.00-7.50) K/uL Lymph # (Auto) 1.80 (1.50-4.00) K/uL [place] # (Auto) 0.69 (0.20-0.80) K/uL Eos # (Auto) 0.27 (0.04-0.40) K/uL Baso # (Auto) 0.01 L (0.02-0.10) K/uL PT (9.0-11.5) sec INR (1.0-3.5) Sodium 150 H (136-145) mmol/L Potassium 4.4 (3.5-5.1) mmol/L Chloride 106 (98-107) mmol/L Carbon Dioxide 45.0 H (21.0-32.0) mmol/L Anion Gap 3.4 L (5.0-15.0) mmol/L BUN 31 H (8-26) mg/dL Creatinine 1.43 H (0.55-1.02) mg/dL Est Cr Clr Drug Dosing 26.06 Estimated GFR (MDRD) 36 L (>60) MLS/MIN BUN/Creatinine Ratio 21.7 (6-25) Glucose 100 D (74-100) mg/dL POC Glucose (74-110) mg/dL Lactic Acid (0.90-1.70) mmol/L Calcium 8.2 L (8.5-10.1) mg/dL Total Bilirubin (0.0-1.0) mg/dL AST (15-37) U/L ALT (12-78) U/L Alkaline Phosphatase (46-116) U/L B-Natriuretic Peptide 3342 H D (0-450) pg/mL Total Protein (6.4-8.2) g/dL Albumin (3.4-5.0) g/dL Globulin (2.2-4.2) g/dL Albumin/Globulin Ratio (0.8-2.0) [place] Results Last 24 Hours: Microbiology 05/15/17 Unknown Urine Culture - Preliminary Urine, Putnam Cath ([place]) No Growth Med Orders - Current: Current Medications Acetaminophen (Tylenol Extra Strength) 1,000 mg PO BID [facility] Last Admin: 05/17/17 08:13 Dose: 1,000 mg Ascorbic Acid (Vitamin C) 500 mg PO DAILY [facility] Last Admin: 05/17/17 08:12 Dose: 500 mg Ferrous Sulfate (Ferrous Sulfate) 325 mg PO BID@0800,1700 [facility] Last Admin: 05/17/17 08:12 Dose: 325 mg Furosemide (Lasix) 80 mg PO DAILY [facility] Last Admin: 05/17/17 08:12 Dose: 80 mg Furosemide (Lasix) 20 mg IVPUSH ONETIME ONE Stop: 05/17/17 08:26 Azithromycin 500 mg/ Sodium (Chloride) 250 mls @ 250 mls/hr IV DAILY [facility] Last Admin: 05/17/17 08:22 Dose: 250 mls/hr Ceftriaxone Sodium 1 gm/ (Sodium Chloride) 100 mls @ 200 mls/hr IV DAILY [facility] Last Admin: 05/16/17 10:16 Dose: 200 mls/hr Sodium Chloride (Sodium Chloride 0.45%) 1,000 mls @ 0 mls/hr IV ASDIRECTED [facility] PRN Reason: KVO Last Admin: 05/16/17 10:44 Dose: 30 mls/hr Insulin Aspart (Novolog) 0 unit SUBCUT 0800,1200,1700 [facility] PRN Reason: Protocol Last Admin: 05/16/17 17:29 Dose: 3 units Insulin Detemir (Levemir) 0 - 24 unit SUBCUT BID [facility] Last Admin: 05/16/17 20:01 Dose: 14 unit Levothyroxine Sodium (Synthroid) 88 mcg PO DAILY [facility] Last Admin: 05/17/17 08:11 Dose: 88 mcg Lisinopril (Prinivil) 20 mg PO DAILY [facility] Metformin HCl (Glucophage) 500 mg PO BIDMEALS [facility] Multivitamins/Minerals (Thera M Plus) 1 tab PO DAILY [facility] Last Admin: 05/17/17 08:12 Dose: 1 tab Nystatin (Nystop) 0 - 1 gm TOP BID PRN PRN Reason: FUNGAL INFECTION Omeprazole (Omeprazole) 40 mg PO DAILY [facility] Last Admin: 05/17/17 08:11 Dose: 40 mg Potassium Chloride (Klor-Con M20) 20 meq PO DAILY [facility] Last Admin: 05/17/17 08:12 Dose: 20 meq Pregabalin (Lyrica) 150 mg PO TID [facility] Last Admin: 05/17/17 08:20 Dose: 150 mg Sertraline HCl (Zoloft) 50 mg PO DAILY [facility] Last Admin: 05/17/17 08:12 Dose: 50 mg Sertraline HCl (Zoloft) 100 mg PO DAILY [facility] Last Admin: 05/17/17 08:12 Dose: 100 mg Simvastatin (Zocor) 20 mg PO BEDTIME [facility] Last Admin: 05/16/17 20:03 Dose: 20 mg Tramadol HCl (Ultram) 50 mg PO TID [facility] Last Admin: 05/17/17 08:12 Dose: 50 mg Warfarin Sodium (Coumadin) 5 mg PO SuTuThSa@1800 [facility] Last Admin: 05/16/17 17:31 Dose: 5 mg Warfarin Sodium (Coumadin) 7.5 mg PO MoWeFr@1800 [facility] Last Admin: 05/15/17 17:21 Dose: 7.5 mg Zinc Gluconate (Zinc) 50 mg PO DAILY [facility] Last Admin: 05/17/17 08:11 Dose: 50 mg Discontinued Medications Acetaminophen (Tylenol) 650 mg PO Q4H PRN PRN Reason: Pain (Mild 1-3)/fever Ferrous Sulfate (Ferrous Sulfate) 325 mg PO BID [facility] Last Admin: 05/15/17 20:02 Dose: Not Given Furosemide (Lasix) 40 mg IVPUSH NOW ONE Stop: 05/15/17 15:16 Last Admin: 05/15/17 15:51 Dose: 40 mg Gabapentin (Neurontin) 600 mg PO TID [facility] Last Admin: 05/16/17 14:05 Dose: Not Given Sodium Chloride (Normal Saline) 1,000 mls @ 75 mls/hr IV ASDIRECTED [facility] Last Admin: 05/15/17 23:46 Dose: 75 mls/hr Insulin Aspart (Novolog) 0 unit SUBCUT TID [facility] PRN Reason: Protocol Last Admin: 05/16/17 00:49 Dose: Not Given Lisinopril (Prinivil) 10 mg PO DAILY [facility] Last Admin: 05/17/17 08:13 Dose: 10 mg Tramadol HCl (Ultram) 50 mg PO BID PRN PRN Reason: Pain Warfarin Sodium (Coumadin) 7.5 mg PO MoWeFr [facility] Last Admin: 05/16/17 11:45 Dose: Not Given - Exam Quality Assessment: Supplemental Oxygen, Urine Catheter, DVT Prophylaxis, Skin Breakdown General: Alert, Oriented HEENT: Pupils Reactive, Mucous Membr. Moist/[place] Neck: Supple Lungs: Clear to Auscultation, Normal Respiratory Effort, Decreased Breath Sounds Cardiovascular: Regular Rate, Regular Rhythm GI/Abdominal Exam: Normal Bowel Sounds, Soft, Non-Tender (Female) Exam: Normal External Exam Extremities: Normal Capillary Refill, Pedal Edema (more pronounced to left foot , dependent), Increased Warmth (left thigh, but improved). No: Normal Range of Motion Peripheral Pulses: 2+: Radial (L), Radial (R), Dorsalis Pedis (L), Dorsalis Pedis (R) Skin: Warm, Dry, Rash (groin, abdominal fold improved and more pink, redness continues below breast folds.) Psy/Mental Status: Alert, Normal Affect, Normal Mood - Problem List & Annotations (1) Pneumonia SNOMED Code(s): 104122174 Code(s): J18.9 - PNEUMONIA, UNSPECIFIED ORGANISM Status: Acute Priority: High Current Visit: Yes Onset Date: 05/15/17 Qualifiers: Laterality: left Lung location: lower lobe of lung Annotation/Comment:: : Continue with IV antibiotic one more day. IV change to saline lock. Increase activity today, up in chair. Continue oxygen, pt on this continuous in home. (2) Diabetes mellitus type 2 SNOMED Code(s): 77406158 Code(s): E11.9 - TYPE 2 DIABETES MELLITUS WITHOUT COMPLICATIONS Status: Acute Priority: High Current Visit: No Annotation/Comment:: 05-17-2017 Blood sugars monitored ac and hs. Novolog sliding scale utilized. Am blood sugar is 100. Appetite is good. continue with skin care and application of nystatin to skin folds. - Problem List Review Problem List Initiated/Reviewed/Updated: Yes - My Orders Last 24 Hours: My Active Orders 05/16/17 08:00 Ascorbic Acid [Vitamin C] 500 mg PO DAILY Ferrous Sulfate 325 mg PO BID@0800,1700 Insulin Aspart [NovoLOG] 0 unit SUBCUT 0800,1200,1700 Levothyroxine [Synthroid] 88 mcg PO DAILY Multivitamins w-Iron/Ca/FA/Min [Thera M Plus] 1 tab PO DAILY Omeprazole 40 mg PO DAILY Potassium Chloride [Klor-Con M20] 20 meq PO DAILY Sertraline [Zoloft] 100 mg PO DAILY Sertraline [Zoloft] 50 mg PO DAILY Zinc Gluconate [Zinc] 50 mg PO DAILY metFORMIN [Glucophage] 500 mg PO BIDMEALS 05/16/17 10:30 Sodium Chloride 0.45% 1,000 ml IV ASDIRECTED 05/16/17 13:42 CULTURE MRSA SURVEY [RM] Routine 05/16/17 14:33 Warfarin [Coumadin] 5 mg PO SuTuThSa@1800 05/17/17 08:25 Furosemide [Lasix] 20 mg IVPUSH ONETIME ONE 05/18/17 07:00 BASIC METABOLIC PANEL,BMP [CHEM] Routine CBC WITH AUTO DIFF [HEME] Routine TSH ULTRASENSITIVE [CHEM] Routine 05/18/17 08:00 Lisinopril [Prinivil] 20 mg PO DAILY - Assessment Assessment:: 05-17-17 Pneumonia: Normal WBC today. Pt alert today and talkative and feeling better. CBC in am. Increase activity today. Heart failure: continue with daily weight. Small dose IV lasix today and increase Lisinopril. BNP improved today, still elevated. BMP in am. D/c putnam catheter today. Diabetes: Continue with insulin as ordered, consistent carb diet. Impaired skin condition: Continue present medication, keep area dry. - Plan Plan:: 05-17-17 AP: Pneumonia: CBC, BMP, BNP in am. D/c Iv fluids today, change to saline lock. Increase activity to up in chair today. Azithromycin 500 mg IV q 24 hr. Continue, WBC normal Rocephin 1 gm IV q 24 hr. Oxygen to keep SpO2 >91%. Diabetes Type 2: Blood sugars ac and hs Levemir Insulin BID sq. Continue w novolog sliding scale. Candidiasis to skin: Keep area dry, Nystatin powder to area as ordered. Putnam catheter started, will assist with prevention of skin breakdown. D/C putnam catheter today. DVT prevention: Coumadin as ordered PT/INR per protocol.
[2017-05-17] MEDS: cefTRIAXone 1 GM in Sodium Chloride 0.9% 100 ML IV SCH (09:37)
[2017-05-17] MEDS: Warfarin 7.5 MG Tab PO SCH (17:13)
[2017-05-17] MEDS: Simvastatin 20 MG Tab PO SCH (19:55)
[2017-05-17] MEDS: Nystatin Topical Powder 15 GM Bottle TOP SCH (19:57)
[2017-05-18] MEDS: Azithromycin 500 MG in Sodium Chloride 0.9% 250 ML IV SCH (07:54)
[2017-05-18] MEDS ORDERED: Lisinopril 20 MG Tab PO SCH (08:00)
[2017-05-18] MEDS: Omeprazole 40 MG Cap.CR PO SCH (08:01)
[2017-05-18] MEDS: Furosemide 40 MG Tab PO SCH (08:01)
[2017-05-18] MEDS: Ferrous Sulfate 325 MG Tab PO SCH (08:01)
[2017-05-18] MEDS: Acetaminophen 500 MG Tab PO SCH (08:01)
[2017-05-18] MEDS: Zinc (Zinc Gluconate) 50 MG Tab PO SCH (08:02)
[2017-05-18] MEDS: Potassium Chloride 20 MEQ Tab.ER PO SCH (08:02)
[2017-05-18] MEDS: traMADol 50 MG Tab PO SCH (08:02)
[2017-05-18] MEDS: Sertraline 100 MG Tab PO SCH (08:02)
[2017-05-18] MEDS: Pregabalin 75 MG Cap PO SCH (08:02)
[2017-05-18] MEDS: Multivitamins with Iron/Calcium/Folic Acid/Minerals Tab PO SCH (08:02)
[2017-05-18 08:03] VITALS: BP 131/77
[2017-05-18] MEDS: Levothyroxine 88 MCG Tab PO SCH (08:03)
[2017-05-18] MEDS: Sertraline 50 MG Tab PO SCH (08:03)
[2017-05-18] MEDS: Ascorbic Acid 500 MG Tab PO SCH (08:03)
[2017-05-18] MEDS: Nystatin Topical Powder 15 GM Bottle TOP SCH (08:28)
[2017-05-18] MEDS: Insulin Detemir 100 Units/ML 3 ML Pen SUBCUT SCH (08:33)
[2017-05-18] MEDS: Insulin Aspart 100 Units/ML 3 ML Pen SUBCUT SCH (08:34)
--- NOTE | 2017-05-18 08:47 | PCM.DCSUM1 ---
Discharge Summary - Hospital Course Free Text/Narrative:: 77 yr female presented with pneumonia, shortness of breath and leukocytosis. Hx of diabetes Type 2, rash to skin folds, cellulitus left thigh, decubitus right buttock. Azithromycin 500 mg IV X 4 days, Rocephin 1 gm IV X 4day. Nystatin powder to skin folds. Meplix to right decubitus, change every 3 day, monitor daily. - Discharge Data Discharge Date: 05/18/17 Discharge Disposition: DC/[facility] Condition: Good - Discharge Diagnosis/Problem(s) (1) Pneumonia SNOMED Code(s): 197483819 ICD Code: J18.9 - PNEUMONIA, UNSPECIFIED ORGANISM Status: Acute Priority : High Current Visit: Yes Onset Date: 05/15/17 Problem Details: 05/17/17: Continue with IV antibiotic one more day. IV change to saline lock. Increase activity today, up in chair. Continue oxygen, pt on this continuous in home. 05/18/17 AM: Continue Azithromycin 250 mg PO X 5 day. Qualifiers: Laterality: left Lung location: lower lobe of lung (2) Diabetes mellitus type 2 SNOMED Code(s): 57945133 ICD Code: E11.9 - TYPE 2 DIABETES MELLITUS WITHOUT COMPLICATIONS Status: Acute Priority: High Current Visit: No Problem Details: 05-17-2017 Blood sugars monitored ac and hs. Novolog sliding scale utilized. Am blood sugar is 100. Appetite is good. continue with skin care and application of nystatin to skin folds. 05-18-17 Continue with ac and hs blodd sugar and sliding scale. FBS 138 today. continue with nystatin powder to skin folds, bid. - Patient Instructions Diet, Other: consistent carbohydrate Activity: As Tolerated, Full Weight Bearing Activity, Other: use walker, recommend ambulation bid-tid in home Showering/Bathing: May Shower Wound/Incision, Other: change dressing every 3 days and prn to right buttock Notify Provider of: Fever, Increased Pain - Discharge Plan Home Medications: Home Meds Furosemide [Furosemide] 80 mg PO DAILY 08/19/13 [History] Gabapentin [Neurontin] 600 mg PO TID 08/19/13 [History] Simvastatin [Zocor] 20 mg PO BEDTIME 08/19/13 [History] metFORMIN [Glucophage] 500 mg PO BIDM 08/19/13 [History] Ascorbate Calcium [Vitamin C] 500 mg PO DAILY 06/10/14 [History] Insulin Glarg,Human.Rec.Analog [LantUS] 14 unit SQ BEDTIME 06/10/14 [History] Insulin Glarg,Human.Rec.Analog [Lantus] 24 units SQ DAILY 06/10/14 [History] Sertraline [Zoloft] 100 mg PO DAILY 06/10/14 [History] Acetaminophen [Tylenol Extra Strength] 1,000 mg PO BID 10/09/14 [History] Apixaban [Eliquis] 2.5 mg PO DAILY 10/09/14 [History] Multivitamin [Multivitamins] 1 each PO DAILY 10/09/14 [History] Omeprazole [Prilosec] 40 mg PO DAILY 10/09/14 [History] Vits A and D/White Pet/Lanolin [A + D Ointment] 1 applic TOP DAILY 10/09/14 [ History] Zinc Gluconate [Zinc] 50 mg PO DAILY 10/09/14 [History] traMADol HCl [Tramadol HCl] 50 mg PO BID PRN 10/09/14 [History] - Discharge Summary/Plan Comment Discharge Summary/Plan Comment: [facility] Continue with Oxygen per N/C continuous. Pneumonia: Azithromycin 250 mg PO X 5 day. Recommend cough and deep breath and ambulation bid to tid in hallway at [facility]. as tolerated. Decubitus: Change dressing every 3 day, Monitor daily and prn Diabetes Type 2: Continue with present regime. Rash to skin folds: Continue with bid nystatin powder. Keep area dry. Monitor bid and prn. Hypothyroid, controlled: TSH level checked and normal 2.64 continue present dose. Cellulitis left thigh: Monitor area daily Bactrim DS 1 tablet PO bid X 7 days. - General Info Date of Service: 05/18/17 Admission Dx/Problem (Free Text: Admission Diagnosis/Problem Admission Diagnosis/Problem Shortness of breath Functional Status: Reports: Tolerating Diet, Ambulating, Other (assist of walker , up in chair) - Review of Systems General: Reports: No Symptoms HEENT: Reports: No Symptoms, Glasses Pulmonary: Reports: No Symptoms Cardiovascular: Reports: No Symptoms Gastrointestinal: Reports: No Symptoms Genitourinary: Reports: Incontinence Skin: Reports: Rash Neurological: Reports: No Symptoms Psychiatric: Reports: No Symptoms - Patient Data Vitals - Most Recent: Last Vital Signs Temp 96.3 F 05/17/17 20:00 Pulse 59 L 05/17/17 20:00 Resp 18 05/18/17 04:00 BP 131/77 05/18/17 08:01 Pulse Ox 95 05/17/17 20:00 Weight - Most Recent: 343 lb 4 oz I&O - Last 24 hours: Intake & Output 05/17/17 05/18/17 05/18/17 22:59 06:59 14:59 Intake Total 1400 720 Output Total 825 Balance 575 720 Lab Results - Last 24 hrs: Laboratory Results - last 24 hr 05/17/17 05/17/17 05/18/17 Range/Units 11:14 16:10 07:00 WBC 7.4 (4.0-11.0) K/uL RBC 3.48 L (3.80-5.80) M/uL Hgb 11.7 (11.5-16.5) g/dL Hct 37.4 (37.0-47.0) % MCV 108 H (76-96) fL MCH 33.6 H (27.0-32.0) pg MCHC 31.3 (31.0-35.0) g/dL RDW 16.6 H (11.0-16.0) % Plt Count 185 (150-500) K/uL MPV 10.5 H (6.0-10.0) fL Neut % (Auto) 68.2 (45.0-70.0) % Lymph % (Auto) 20.5 (20.0-40.0) % [place] % (Auto) 7.6 (3.0-10.0) % Eos % (Auto) 3.6 (1.0-5.0) % Baso % (Auto) 0.1 (0.0-0.5) % Neut # (Auto) 5.05 (2.00-7.50) K/uL Lymph # (Auto) 1.52 (1.50-4.00) K/uL [place] # (Auto) 0.56 (0.20-0.80) K/uL Eos # (Auto) 0.27 (0.04-0.40) K/uL Baso # (Auto) 0.01 L (0.02-0.10) K/uL Sodium (136-145) mmol/L Potassium (3.5-5.1) mmol/L Chloride (98-107) mmol/L Carbon Dioxide (21.0-32.0) mmol/L Anion Gap (5.0-15.0) mmol/L BUN (8-26) mg/dL Creatinine (0.55-1.02) mg/dL Est Cr Clr Drug Dosing mL/min Estimated GFR (MDRD) (>60) MLS/MIN BUN/Creatinine Ratio (6-25) Glucose (74-100) mg/dL POC Glucose 145 H 208 H (74-110) mg/dL Calcium (8.5-10.1) mg/dL TSH, Ultra Sensitive (0.358-3.740) uIU/mL 05/18/17 Range/Units 07:00 WBC (4.0-11.0) K/uL RBC (3.80-5.80) M/uL Hgb (11.5-16.5) g/dL Hct (37.0-47.0) % MCV (76-96) fL MCH (27.0-32.0) pg MCHC (31.0-35.0) g/dL RDW (11.0-16.0) % Plt Count (150-500) K/uL MPV (6.0-10.0) fL Neut % (Auto) (45.0-70.0) % Lymph % (Auto) (20.0-40.0) % [place] % (Auto) (3.0-10.0) % Eos % (Auto) (1.0-5.0) % Baso % (Auto) (0.0-0.5) % Neut # (Auto) (2.00-7.50) K/uL Lymph # (Auto) (1.50-4.00) K/uL [place] # (Auto) (0.20-0.80) K/uL Eos # (Auto) (0.04-0.40) K/uL Baso # (Auto) (0.02-0.10) K/uL Sodium 149 H (136-145) mmol/L Potassium 4.3 (3.5-5.1) mmol/L Chloride 105 (98-107) mmol/L Carbon Dioxide 43.7 H (21.0-32.0) mmol/L Anion Gap 4.6 L (5.0-15.0) mmol/L BUN 31 H (8-26) mg/dL Creatinine 1.32 H (0.55-1.02) mg/dL Est Cr Clr Drug Dosing 28.23 mL/min Estimated GFR (MDRD) 39 L (>60) MLS/MIN BUN/Creatinine Ratio 23.5 (6-25) Glucose 138 H D (74-100) mg/dL POC Glucose (74-110) mg/dL Calcium 8.2 L (8.5-10.1) mg/dL TSH, Ultra Sensitive 2.640 D (0.358-3.740) uIU/mL CYNTHIA Results - Last 24 hrs: Microbiology 05/16/17 13:42 MRSA Surveillance Culture - Final Nares, Unspecified NO MRSA ISOLATED Med Orders - Current: Current Medications Acetaminophen (Tylenol Extra Strength) 1,000 mg PO BID [facility] Last Admin: 05/18/17 08:01 Dose: 1,000 mg Ascorbic Acid (Vitamin C) 500 mg PO DAILY [facility] Last Admin: 05/18/17 08:03 Dose: 500 mg Ferrous Sulfate (Ferrous Sulfate) 325 mg PO BID@0800,1700 [facility] Last Admin: 05/18/17 08:01 Dose: 325 mg Furosemide (Lasix) 80 mg PO DAILY [facility] Last Admin: 05/18/17 08:01 Dose: 80 mg Azithromycin 500 mg/ Sodium (Chloride) 250 mls @ 250 mls/hr IV DAILY [facility] Last Admin: 05/18/17 07:54 Dose: 250 mls/hr Ceftriaxone Sodium 1 gm/ (Sodium Chloride) 100 mls @ 200 mls/hr IV DAILY [facility] Last Admin: 05/17/17 09:37 Dose: 200 mls/hr Insulin Aspart (Novolog) 0 unit SUBCUT 0800,1200,1700 [facility] PRN Reason: Protocol Last Admin: 05/18/17 08:34 Dose: 3 units Insulin Detemir (Levemir) 0 - 24 unit SUBCUT BID [facility] Last Admin: 05/18/17 08:33 Dose: 24 unit Levothyroxine Sodium (Synthroid) 88 mcg PO DAILY [facility] Last Admin: 05/18/17 08:03 Dose: 88 mcg Lisinopril (Prinivil) 20 mg PO DAILY [facility] Last Admin: 05/18/17 08:01 Dose: 20 mg [facility]iv[facility]amins/Minerals (Thera M Plus) 1 tab PO DAILY [facility] Last Admin: 05/18/17 08:02 Dose: 1 tab Nystatin (Nystop) 0 - 1 gm TOP BID [facility] Stop: 05/26/17 20:01 Last Admin: 05/18/17 08:28 Dose: 1 applic Omeprazole (Omeprazole) 40 mg PO DAILY [facility] Last Admin: 05/18/17 08:01 Dose: 40 mg Potassium Chloride (Klor-Con M20) 20 meq PO DAILY [facility] Last Admin: 05/18/17 08:02 Dose: 20 meq Pregabalin (Lyrica) 150 mg PO TID [facility] Last Admin: 05/18/17 08:02 Dose: 150 mg Sertraline HCl (Zoloft) 50 mg PO DAILY [facility] Last Admin: 05/18/17 08:03 Dose: 50 mg Sertraline HCl (Zoloft) 100 mg PO DAILY [facility] Last Admin: 05/18/17 08:02 Dose: 100 mg Simvastatin (Zocor) 20 mg PO BEDTIME [facility] Last Admin: 05/17/17 19:55 Dose: 20 mg Tramadol HCl (Ultram) 50 mg PO TID [facility] Last Admin: 05/18/17 08:02 Dose: 50 mg Warfarin Sodium (Coumadin) 5 mg PO SuTuThSa@1800 [facility] Last Admin: 05/16/17 17:31 Dose: 5 mg Warfarin Sodium (Coumadin) 7.5 mg PO MoWeFr@1800 [facility] Last Admin: 05/17/17 17:13 Dose: 7.5 mg Zinc Gluconate (Zinc) 50 mg PO DAILY [facility] Last Admin: 05/18/17 08:02 Dose: 50 mg Discontinued Medications Acetaminophen (Tylenol) 650 mg PO Q4H PRN PRN Reason: Pain (Mild 1-3)/fever Ferrous Sulfate (Ferrous Sulfate) 325 mg PO BID [facility] Last Admin: 05/15/17 20:02 Dose: Not Given Furosemide (Lasix) 40 mg IVPUSH NOW ONE Stop: 05/15/17 15:16 Last Admin: 05/15/17 15:51 Dose: 40 mg Furosemide (Lasix) 20 mg IVPUSH ONETIME ONE Stop: 05/17/17 08:26 Last Admin: 05/17/17 08:56 Dose: 20 mg Gabapentin (Neurontin) 600 mg PO TID [facility] Last Admin: 05/16/17 14:05 Dose: Not Given Sodium Chloride (Normal Saline) 1,000 mls @ 75 mls/hr IV ASDIRECTED [facility] Last Admin: 05/15/17 23:46 Dose: 75 mls/hr Sodium Chloride (Sodium Chloride 0.45%) 1,000 mls @ 0 mls/hr IV ASDIRECTED [facility] PRN Reason: KVO Last Admin: 05/16/17 10:44 Dose: 30 mls/hr Insulin Aspart (Novolog) 0 unit SUBCUT TID [facility] PRN Reason: Protocol Last Admin: 05/16/17 00:49 Dose: Not Given Lisinopril (Prinivil) 10 mg PO DAILY [facility] Last Admin: 05/17/17 08:13 Dose: 10 mg Nystatin (Nystop) 0 - 1 gm TOP BID PRN PRN Reason: FUNGAL INFECTION Last Admin: 05/17/17 12:47 Dose: 1 applic Tramadol HCl (Ultram) 50 mg PO BID PRN PRN Reason: Pain Warfarin Sodium (Coumadin) 7.5 mg PO MoWeFr [facility] Last Admin: 05/16/17 11:45 Dose: Not Given - Exam Quality Assessment: Reports: Supplemental Oxygen, Skin Breakdown General: Reports: Alert, Oriented HEENT: Reports: Mucous Membr. Moist/[place] Neck: Reports: Supple, Trachea Midline Lungs: Reports: Clear to Auscultation, Normal Respiratory Effort, Decreased Breath Sounds Cardiovascular: Reports: Regular Rate GI/Abdominal Exam: Normal Bowel Sounds, Soft, Non-Tender (Female) Exam: Normal External Exam Back Exam: Reports: Normal Inspection Extremities: Normal Capillary Refill, Pedal Edema (mild edema to ankles), Increased Warmth (left upper thigh), Redness (left upper thigh) Skin: Reports: Warm, Dry, Rash, Other (duskiness to buttocks.) Wound/Incisions: Reports: Dressing Dry and Intact (changed today), Decubitis ( about 4mm open area to right buttock). Denies: Erythema Neurological: Reports: Normal Speech, Strength Equal Bilateral Psy/Mental Status: Reports: Alert, Normal Affect, Normal Mood *Q Meaningful Use (DIS) - VTE *Q VTE Criteria *Q: - Stroke *Q Stroke Criteria *Q: - AMI *Q AMI Criteria *Q:
[2017-05-18] MEDS: cefTRIAXone 1 GM in Sodium Chloride 0.9% 100 ML IV SCH (09:04)
== END 2017-05-18 11:05 | DRG 194 ==
LOC: UNDOADMIN 10:40 → LB.MS 10:40
PROVIDERS: ADMIT Nurse Practitioner Family; ATTEND Nurse Practitioner Family
DX: J18.9 Pneumonia, unspecified organism (principal); I13.0 Hypertensive heart and chronic kidney disease with heart failure and stage 1 through stage 4 chronic kidney disease, or unspecified chronic kidney disease; L03.116 Cellulitis of left lower limb; I50.9 Heart failure, unspecified; N18.9 Chronic kidney disease, unspecified; E11.22 Type 2 diabetes mellitus with diabetic chronic kidney disease; Z79.4 Long term (current) use of insulin; B37.2 Candidiasis of skin and nail; R32 Unspecified urinary incontinence; L89.319 Pressure ulcer of right buttock, unspecified stage; E03.9 Hypothyroidism, unspecified; H54.7 Unspecified visual loss; H91.90 Unspecified hearing loss, unspecified ear; Z79.01 Long term (current) use of anticoagulants; Z88.6 Allergy status to analgesic agent; Z88.0 Allergy status to penicillin
CPT/HCPCS: 36415; 51702; 71010; 80048; 80053; 81001; 82962; 83605; 83880; 84443; 85025; 85027; 85379; 85610; 87040; 87086; 93005; A9270-GY; J0456; J0696; J1940; J3490; J7030; J7040; J7050

== ENCOUNTER 2017-07-24 17:26 | Inpatient (IN) | payer MEDICARE ==
[2017-07-24] MEDS ORDERED: Sodium Chloride 0.9% 10 ML Syringe FLUSH PRN (17:51)
--- NOTE | 2017-07-24 19:01 | EDM.PDOC ---
ED HPI GENERAL MEDICAL PROBLEM - General Chief Complaint: Cardiovascular Problem Stated Complaint: Low oxygen saturation Time Seen by Provider: 07/24/17 17:26 Source of Information: Reports: Patient, Usp Records, RN, RN Notes Reviewed History Limitations: Reports: No Limitations - History of Present Illness INITIAL COMMENTS - FREE TEXT/NARRATIVE: Patient is alert and oriented. Her oxygen saturations were reportedly low at the care center in 60's. Patient is routinely on 3L oxygen 06/02. Patient denies any concerns or issues and is able to respond. Patient does appear weak and not as alert as her baseline. The last time she had this episode of low oxygen saturation she was diagnosed with pneumonia. Onset: Sudden Duration: Minutes:, Constant, Waxing/Waning Worsens with: Reports: Movement Associated Symptoms: Reports: Weakness - Related Data Allergies Allergy/AdvReac Type Severity Reaction Status Date / Time aspirin Allergy Nausea and Verified 06/09/14 15:14 Vomiting Penicillins Allergy Rash Verified 06/09/14 15:14 Home Meds: Home Meds Acetaminophen [Tylenol Extra Strength] 1,000 mg PO 0700,1900 07/25/17 [History] Arginine/Glutamine/Calcium Hmb [Mingo Packet] 1 each PO DAILY 07/25/17 [History] Ascorbate Calcium [Vitamin C] 500 mg PO DAILY 07/25/17 [History] Ferrous Sulfate 325 mg PO 0700,1900 07/25/17 [History] Furosemide [Lasix] 80 mg PO DAILY 07/25/17 [History] Insulin Aspart [Novolog] See Protocol SQ TIDMEALS 07/25/17 [History] Insulin Glarg,Human.Rec.Analog [LantUS Solostar] 16 unit SUBCUT 199907/25/17 [ History] Insulin Glarg,Human.Rec.Analog [LantUS Solostar] 26 unit SUBCUT 0800 07/25/17 [ History] L.acidoph,Paracasei, B.lactis [Probiotic] 1 each PO 1200 07/25/17 [History] Levothyroxine [Synthroid] 88 mcg PO ACBREAKFAST 07/25/17 [History] Liraglutide [Victoza] 1.2 mg SUBCUT DAILY 07/25/17 [History] Multivitamins [Childrens Chewable Vitamin] 1 tab PO DAILY 07/25/17 [History] Nystatin 1 applic TOP BID 07/25/17 [History] Omeprazole 40 mg PO DAILY 07/25/17 [History] Polyethylene Glycol 3350 [Miralax] 17 gm PO DAILY 07/25/17 [History] Potassium Chloride 20 meq PO DAILY 07/25/17 [History] Pregabalin [Lyrica] 150 mg PO 0700,1100,1900 07/25/17 [History] Sertraline HCl [Zoloft] 100 mg PO DAILY 07/25/17 [History] Simvastatin [Zocor] 20 mg PO BEDTIME 07/25/17 [History] Warfarin Sodium [Coumadin] 7.5 mg PO ASDIRECTED 07/25/17 [History] Warfarin [Coumadin] 5 mg PO ASDIRECTED 07/25/17 [History] Zinc Gluconate [Zinc] 50 mg PO DAILY 07/25/17 [History] metFORMIN HCl [Metformin HCl] 500 mg PO 0700,1700 07/25/17 [History] traMADol [Ultram] 50 mg PO DAILY 07/25/17 [History] Past Medical History HEENT History: Reports: Hard of Hearing, Impaired Vision Cardiovascular History: Reports: Heart Failure, Hypertension Respiratory History: Reports: COPD Genitourinary History: Reports: Chronic Renal Insuffiency Musculoskeletal History: Reports: Arthritis Endocrine/Metabolic History: Reports: Diabetes, Type II Dermatologic History: Reports: Other (See Below) Other Dermatologic History: reddened area under breasts and abdominal fold Social & Family History - Tobacco Use Smoking Status *Q: Never Smoker Second Hand Smoke Exposure: No - Caffeine Use Caffeine Use: Reports: Coffee - Alcohol Use Days Per Week of Alcohol Use: 0 - Recreational Drug Use Recreational Drug Use: No - Living Situation & Occupation Living situation: Reports: , Extended Care Facility Occupation: Retired ED ROS GENERAL - Review of Systems Review Of Systems: ROS reveals no pertinent complaints other than HPI. ED EXAM, GENERAL - Physical Exam Exam: See Below Exam Limited By: No Limitations General Appearance: Alert, WD/WN, No Apparent Distress Eye Exam: Bilateral Eye: EOMI, PERRL Ears: Normal External Exam Nose: Normal Inspection Throat/Mouth: Normal Inspection Head: Atraumatic, Normocephalic Neck: Normal Inspection Respiratory/Chest: No Respiratory Distress, Normal Breath Sounds, Crackles (b/l lower) Cardiovascular: Normal Peripheral Pulses, Regular Rate, Rhythm Peripheral Pulses: 2+: Dorsalis Pedis (L), Dorsalis Pedis (R) GI/Abdominal: Normal Bowel Sounds Extremities: Normal Inspection, Normal Capillary Refill Neurological: Alert, Oriented, CN II-XII Intact, Other (patient appears inattentive at times) Psychiatric: Normal Affect, Normal Mood Skin Exam: Warm, Dry, Intact Course - Vital Signs Last Recorded V/S: Last Vital Signs Temp 36.6 C 07/25/17 07:59 Pulse 66 07/25/17 07:59 Resp 20 07/25/17 07:59 BP 147/81 H 07/25/17 07:59 Pulse Ox 94 L 07/25/17 07:59 - Orders/Labs/Meds Orders: Active Orders 24 hr Category Date Time Status Blood Glucose Check, Bedside [RC] 08,12,17,20 Care 07/24/17 20:00 Active Consistent Carbohydrate Diet [DIET] Diet 07/25/17 Breakfast Ordered Heart Healthy Diet [DIET] Diet 07/25/17 Breakfast Ordered CULTURE URINE [RM] Stat Lab 07/24/17 19:16 Ordered Apixaban Med 07/25/17 08:00 Active 2.5 mg PO DAILY Ascorbate Calcium [Vitamin C] Med 07/25/17 08:00 Active 500 mg PO DAILY Ciprofloxacin in D5W [Cipro in D5W 400 MG/200 ML] 400 Med 07/25/17 08:00 Active mg Premix Bag 1 bag IV DAILY Furosemide [Lasix] Med 07/24/17 19:15 Active 40 mg IVPUSH DAILY Non-Formulary Medication [NF Drug] Med 07/25/17 08:00 Active 1.2 each SQ DAILY Sodium Chloride 0.9% [Normal Saline] 1,000 ml Med 07/24/17 19:15 Active IV ASDIRECTED Sodium Chloride 0.9% [Saline Flush] Med 07/24/17 17:51 Active 10 ml FLUSH ASDIRECTED PRN Vits A and D/White Pet/Lanolin [A + D Ointment] Med 07/25/17 08:00 Active 1 applic TOP DAILY Zinc Gluconate [Zinc] Med 07/25/17 08:00 Active 50 mg PO DAILY Peripheral IV Insertion Adult [OM.PC] Routine Oth 07/24/17 17:51 Ordered Medication Orders Furosemide (Lasix) 40 mg IVPUSH DAILY JEWEL Last Admin: 07/25/17 07:58 Dose: 40 mg Admin: 07/24/17 19:12 Dose: 40 mg Ciprofloxacin/Dextrose 400 mg/ (Premix) 200 mls @ 200 mls/hr IV DAILY JEWEL Last Admin: 07/25/17 07:57 Dose: 200 mls/hr Sodium Chloride (Normal Saline) 1,000 mls @ 0 mls/hr IV ASDIRECTED JEWEL PRN Reason: KVO Last Admin: 07/24/17 19:10 Dose: 30 mls/hr Multivitamins/Minerals (Thera M Plus) 1 tab PO DAILY JEWEL Non-Formulary Medication (Apixaban) 2.5 mg PO DAILY JEWEL Non-Formulary Medication (Ascorbate Calcium [Vitamin C]) 500 mg PO DAILY JEWEL Non-Formulary Medication (Vits A And D/White Pet/Lanolin [A + D Ointment]) 1 applic TOP DAILY JEWEL Non-Formulary Medication (Zinc Gluconate [Zinc]) 50 mg PO DAILY JEWEL Non-Formulary Medication (Nf Drug) 1.2 each SQ DAILY JEWEL Non-Formulary Medication (Acetaminophen [Tylenol Extra Strength]) 1,000 mg PO 0700,1900 JEWEL Non-Formulary Medication (Arginine/Glutamine/Calcium Hmb [Mingo Packet]) 1 each PO DAILY JEWEL Non-Formulary Medication (Ascorbate Calcium [Vitamin C]) 500 mg PO DAILY JEWEL Non-Formulary Medication (Ferrous Sulfate [Ferrous Sulfate]) 325 mg PO 0700, 1900 JEWEL Non-Formulary Medication (Insulin Aspart [Novolog Flexpen]) 0 unit SQ TIDMEALS JEWEL Non-Formulary Medication (Insulin Glarg,Human.Rec.Analog [Lantus Solostar]) 16 unit SUBCUT 2000 JEWEL Non-Formulary Medication (Insulin Glarg,Human.Rec.Analog [Lantus Solostar]) 26 unit SUBCUT 0800 [facility] Non-Formulary Medication (L.Acidoph,Paracasei, B.Lactis [Probiotic]) 1 each PO 1200 JEWEL Non-Formulary Medication (Levothyroxine [Synthroid]) 88 mcg PO ACBREAKFAST JEWEL Non-Formulary Medication (Liraglutide [Victoza]) 1.2 mg SUBCUT DAILY JEWEL Non-Formulary Medication (Metformin Hcl [Metformin Hcl]) 500 mg PO 0700,1700 JEWEL Non-Formulary Medication (Multivitamins [Childrens Chewable Vitamin]) 1 tab PO DAILY JEWEL Non-Formulary Medication (Nystatin [Nystatin]) 1 applic TOP BID JEWEL Non-Formulary Medication (Omeprazole [Omeprazole]) 40 mg PO DAILY JEWEL Non-Formulary Medication (Polyethylene Glycol 3350 [Miralax]) 17 gm PO DAILY JEWEL Non-Formulary Medication (Potassium Chloride [Potassium Chloride]) 20 meq PO DAILY JEWEL Non-Formulary Medication (Pregabalin [Lyrica]) 150 mg PO 0700,1100,1900 JEWEL Non-Formulary Medication (Sertraline Hcl [Zoloft]) 100 mg PO DAILY JEWEL Non-Formulary Medication (Simvastatin [Zocor]) 20 mg PO BEDTIME JEWEL Non-Formulary Medication (Tramadol [Ultram]) 50 mg PO DAILY JEWEL Non-Formulary Medication (Warfarin Sodium [Coumadin]) 7.5 mg PO ASDIRECTED JEWEL Non-Formulary Medication (Warfarin [Coumadin]) 5 mg PO ASDIRECTED JEWEL Non-Formulary Medication (Zinc Gluconate [Zinc]) 50 mg PO DAILY JEWEL Sodium Chloride (Saline Flush) 10 ml FLUSH ASDIRECTED PRN PRN Reason: Keep Vein Open Labs: Laboratory Tests 07/24/17 07/24/17 07/24/17 Range/Units 18:15 18:15 18:15 WBC 11.3 H D (4.0-11.0) K/uL RBC 3.80 (3.80-5.80) M/uL Hgb 12.2 (11.5-16.5) g/dL Hct 39.1 (37.0-47.0) % MCV 103 H (76-96) fL MCH 32.1 H (27.0-32.0) pg MCHC 31.2 (31.0-35.0) g/dL RDW 16.3 H (11.0-16.0) % Plt Count 182 (150-500) K/uL MPV 11.8 H (6.0-10.0) fL Neut % (Auto) 73.8 H (45.0-70.0) % Lymph % (Auto) 16.1 L (20.0-40.0) % Kimball % (Auto) 8.1 (3.0-10.0) % Eos % (Auto) 1.9 (1.0-5.0) % Baso % (Auto) 0.1 (0.0-0.5) % Neut # (Auto) 8.33 H (2.00-7.50) K/uL Lymph # (Auto) 1.82 (1.50-4.00) K/uL Kimball # (Auto) 0.92 H (0.20-0.80) K/uL Eos # (Auto) 0.21 (0.04-0.40) K/uL Baso # (Auto) 0.01 L (0.02-0.10) K/uL D-Dimer, Quantitative 175 (0-400) ng/mL Sodium 147 H (136-145) mmol/L Potassium 4.1 (3.5-5.1) mmol/L Chloride 103 (98-107) mmol/L Carbon Dioxide 38.7 H (21.0-32.0) mmol/L Anion Gap 9.4 (5.0-15.0) mmol/L BUN 65 H* D (8-26) mg/dL Creatinine 1.98 H D (0.55-1.02) mg/dL Est Cr Clr Drug Dosing TNP Estimated GFR (MDRD) 24 L (>60) MLS/MIN BUN/Creatinine Ratio 32.8 H (6-25) Glucose 134 H (74-100) mg/dL Calcium 9.0 (8.5-10.1) mg/dL Total Bilirubin 0.2 (0.0-1.0) mg/dL AST 16 (15-37) U/L ALT 15 (12-78) U/L Alkaline Phosphatase 71 (46-116) U/L Troponin I < 0.017 (0.000-0.060) ng/mL B-Natriuretic Peptide 06042 H D (0-450) pg/mL Total Protein 7.4 (6.4-8.2) g/dL Albumin 2.8 L (3.4-5.0) g/dL Globulin 4.6 H (2.2-4.2) g/dL Albumin/Globulin Ratio 0.6 L (0.8-2.0) Urine Color Urine Appearance (CLEAR) Urine pH (5.0-8.0) Ur Specific Dille (1.003-1.030) Urine Protein (NEGATIVE) mg/dL Urine Glucose (UA) (NEGATIVE) mg/dL Urine Ketones (NEGATIVE) mg/dL Urine Occult Blood (NEGATIVE) Urine Nitrite (NEGATIVE) Urine Bilirubin (NEGATIVE) Urine Urobilinogen (0.2-1.0) E.U./dL Ur Leukocyte Esterase (NEGATIVE) Urine RBC /HPF Urine WBC /HPF Urine Bacteria /HPF 07/24/17 Range/Units 18:45 WBC (4.0-11.0) K/uL RBC (3.80-5.80) M/uL Hgb (11.5-16.5) g/dL Hct (37.0-47.0) % MCV (76-96) fL MCH (27.0-32.0) pg MCHC (31.0-35.0) g/dL RDW (11.0-16.0) % Plt Count (150-500) K/uL MPV (6.0-10.0) fL Neut % (Auto) (45.0-70.0) % Lymph % (Auto) (20.0-40.0) % Kimball % (Auto) (3.0-10.0) % Eos % (Auto) (1.0-5.0) % Baso % (Auto) (0.0-0.5) % Neut # (Auto) (2.00-7.50) K/uL Lymph # (Auto) (1.50-4.00) K/uL Kimball # (Auto) (0.20-0.80) K/uL Eos # (Auto) (0.04-0.40) K/uL Baso # (Auto) (0.02-0.10) K/uL D-Dimer, Quantitative (0-400) ng/mL Sodium (136-145) mmol/L Potassium (3.5-5.1) mmol/L Chloride (98-107) mmol/L Carbon Dioxide (21.0-32.0) mmol/L Anion Gap (5.0-15.0) mmol/L BUN (8-26) mg/dL Creatinine (0.55-1.02) mg/dL Est Cr Clr Drug Dosing Estimated GFR (MDRD) (>60) MLS/MIN BUN/Creatinine Ratio (6-25) Glucose (74-100) mg/dL Calcium (8.5-10.1) mg/dL Total Bilirubin (0.0-1.0) mg/dL AST (15-37) U/L ALT (12-78) U/L Alkaline Phosphatase (46-116) U/L Troponin I (0.000-0.060) ng/mL B-Natriuretic Peptide (0-450) pg/mL Total Protein (6.4-8.2) g/dL Albumin (3.4-5.0) g/dL Globulin (2.2-4.2) g/dL Albumin/Globulin Ratio (0.8-2.0) Urine Color Yellow Urine Appearance Slightly cloudy (CLEAR) Urine pH 5.5 (5.0-8.0) Ur Specific Dille 1.010 (1.003-1.030) Urine Protein Negative (NEGATIVE) mg/dL Urine Glucose (UA) Negative (NEGATIVE) mg/dL Urine Ketones Negative (NEGATIVE) mg/dL Urine Occult Blood Trace-intact H (NEGATIVE) Urine Nitrite Negative (NEGATIVE) Urine Bilirubin Negative (NEGATIVE) Urine Urobilinogen 0.2 (0.2-1.0) E.U./dL Ur Leukocyte Esterase Moderate H (NEGATIVE) Urine RBC 0-5 H /HPF Urine WBC 10-20 H /HPF Urine Bacteria Many H /HPF Meds: Medications Generic Name Dose Route Start Last Admin Trade Name Latoya PRN Reason Stop Dose Admin Furosemide 40 mg 07/24/17 19:15 07/25/17 07:58 Lasix IVPUSH 40 mg DAILY JEWEL Administration Ciprofloxacin/Dextrose 400 mg/ 200 mls @ 200 mls/hr 07/25/17 08:00 07/25/17 07:57 Premix IV 200 mls/hr DAILY JEWEL Administration Sodium Chloride 1,000 mls @ 0 mls/hr 07/24/17 19:15 07/24/17 19:10 Normal Saline IV 30 mls/hr ASDIRECTED JEWEL Administration KVO Multivitamins/Minerals 1 tab 07/25/17 08:00 Thera M Plus PO DAILY JEWEL Non-Formulary Medication 2.5 mg 07/25/17 08:00 Apixaban PO DAILY JEWEL Non-Formulary Medication 500 mg 07/25/17 08:00 Ascorbate Calcium [Vitamin C] PO DAILY JEWEL Non-Formulary Medication 1 applic 07/25/17 08:00 Vits A And D/White Pet/Lanolin [A + D Ointment] TOP DAILY [facility] Non-Formulary Medication 50 mg 07/25/17 08:00 Zinc Gluconate [Zinc] PO DAILY [facility] Non-Formulary Medication 1.2 each 07/25/17 08:00 Nf Drug SQ DAILY [facility] Non-Formulary Medication 1,000 mg 07/25/17 19:00 Acetaminophen [Tylenol Extra Strength] PO 0700,1900 [facility] Non-Formulary Medication 1 each 07/26/17 08:00 Arginine/Glutamine/Calcium Hmb [Mingo Packet] PO DAILY [facility] Non-Formulary Medication 500 mg 07/26/17 08:00 Ascorbate Calcium [Vitamin C] PO DAILY [facility] Non-Formulary Medication 325 mg 07/25/17 19:00 Ferrous Sulfate [Ferrous Sulfate] PO 0700,1900 [facility] Non-Formulary Medication 0 unit 07/25/17 12:00 Insulin Aspart [Novolog Flexpen] SQ TIDMEALS [facility] Non-Formulary Medication 16 unit 07/25/17 20:00 Insulin Glarg,Human.Rec.Analog [Lantus Solostar] SUBCUT 2000 [facility] Non-Formulary Medication 26 unit 07/26/17 08:00 Insulin Glarg,Human.Rec.Analog [Lantus Solostar] SUBCUT 0800 [facility] Non-Formulary Medication 1 each 07/25/17 12:00 L.Acidoph,Paracasei, B.Lactis [Probiotic] PO 1200 [facility] Non-Formulary Medication 88 mcg 07/26/17 07:00 Levothyroxine [Synthroid] PO ACBREAKFAST [facility] Non-Formulary Medication 1.2 mg 07/26/17 08:00 Liraglutide [Victoza] SUBCUT DAILY [facility] Non-Formulary Medication 500 mg 07/25/17 17:00 Metformin Hcl [Metformin Hcl] PO 0700,1700 [facility] Non-Formulary Medication 1 tab 07/26/17 08:00 Multivitamins [Childrens Chewable Vitamin] PO DAILY [facility] Non-Formulary Medication 1 applic 07/25/17 20:00 Nystatin [Nystatin] TOP BID [facility] Non-Formulary Medication 40 mg 07/26/17 08:00 Omeprazole [Omeprazole] PO DAILY [facility] Non-Formulary Medication 17 gm 07/26/17 08:00 Polyethylene Glycol 3350 [Miralax] PO DAILY [facility] Non-Formulary Medication 20 meq 07/26/17 08:00 Potassium Chloride [Potassium Chloride] PO DAILY JEWEL Non-Formulary Medication 150 mg 07/25/17 11:00 Pregabalin [Lyrica] PO 0700,1100,1900 [facility] Non-Formulary Medication 100 mg 07/26/17 08:00 Sertraline Hcl [Zoloft] PO DAILY JEWEL Non-Formulary Medication 20 mg 07/25/17 20:00 Simvastatin [Zocor] PO BEDTIME JEWEL Non-Formulary Medication 50 mg 07/26/17 08:00 Tramadol [Ultram] PO DAILY JEWEL Non-Formulary Medication 7.5 mg 07/25/17 08:45 Warfarin Sodium [Coumadin] PO ASDIRECTED JEWEL Non-Formulary Medication 5 mg 07/25/17 08:45 Warfarin [Coumadin] PO ASDIRECTED JEWEL Non-Formulary Medication 50 mg 07/26/17 08:00 Zinc Gluconate [Zinc] PO DAILY [facility] Sodium Chloride 10 ml 07/24/17 17:51 Saline Flush FLUSH ASDIRECTED PRN Keep Vein Open Discontinued Medications Generic Name Dose Route Start Last Admin Trade Name Freq PRN Reason Stop Dose Admin Acetaminophen 1,000 mg 07/24/17 20:00 07/24/17 21:02 Tylenol Extra Strength PO Not Given BID JEWEL Furosemide Confirm 07/24/17 19:05 07/24/17 21:01 Lasix Administered 07/24/17 19:06 Not Given Dose 40 mg .ROUTE .STK-MED ONE Gabapentin 600 mg 07/24/17 20:00 Neurontin PO TID [facility] Insulin Glargine 16 units 07/24/17 20:00 07/24/17 21:02 Lantus Solostar SUBCUT Not Given BEDTIME [facility] Insulin Glargine 26 units 07/25/17 08:00 07/25/17 08:49 Lantus Solostar SUBCUT 26 units DAILY [facility] Administration Levothyroxine Sodium 88 mcg 07/25/17 07:00 07/25/17 07:57 Synthroid PO 88 mcg ACBREAKFAST [facility] Administration Metformin HCl 500 mg 07/25/17 08:00 Glucophage PO BIDM [facility] Non-Formulary Medication 14 unit 07/24/17 20:00 Insulin Glarg,Human.Rec.Analog [Lantus] SQ BEDTIME [facility] Non-Formulary Medication 24 units 07/25/17 08:00 Insulin Glarg,Human.Rec.Analog [Lantus] SQ DAILY [facility] Omeprazole 40 mg 07/25/17 08:00 Omeprazole PO DAILY JEWEL Pregabalin 150 mg 07/24/17 20:00 07/24/17 21:02 Lyrica PO Not Given TID JEWEL Sertraline HCl 100 mg 07/25/17 08:00 Zoloft PO DAILY JEWEL Sertraline HCl 150 mg 07/25/17 08:00 Zoloft PO DAILY JEWEL Simvastatin 20 mg 07/24/17 20:00 07/24/17 21:02 Zocor PO Not Given BEDTIME JEWEL Tramadol HCl 50 mg 07/24/17 19:04 Ultram PO BID PRN Pain - Re-Assessments/Exams Free Text/Narrative Re-Assessment/Exam: Non-rebreather used and oxygen came up to 98% Weaned to NC 5L and patient remained at 96% Departure - Departure Time of Disposition: 18:45 Disposition: Refer to Observation Condition: Fair Clinical Impression: Low oxygen saturation, Lethargy, [facility] resident, Renal dysfunction, Elevated WBC count UTI (urinary tract infection) Qualifiers: Urinary tract infection type: site unspecified Hematuria presence: without hematuria Qualified Code(s): N39.0 - Urinary tract infection, site not specified - Discharge Information - Problem List & Annotations (1) Low oxygen saturation SNOMED Code(s): 383326916 Code(s): R79.81 - ABNORMAL BLOOD-GAS LEVEL Status: Acute Priority: High Current Visit: Yes (2) Elevated WBC count SNOMED Code(s): 165399698 Code(s): D72.829 - ELEVATED WHITE BLOOD CELL COUNT, UNSPECIFIED Status: Acute Priority: High Current Visit: Yes (3) Lethargy SNOMED Code(s): 517751724 Code(s): R53.83 - OTHER FATIGUE Status: Acute Priority: High Current Visit: Yes (4) [facility] resident SNOMED Code(s): 659260383 Code(s): Z59.3 - PROBLEMS RELATED TO LIVING IN RESIDENTIAL INSTITUTION Status: Acute Priority: High Current Visit: Yes (5) Renal dysfunction Status: Acute Priority: High Current Visit: Yes (6) UTI (urinary tract infection) SNOMED Code(s): 40926398 Code(s): N39.0 - URINARY TRACT INFECTION, SITE NOT SPECIFIED Status: Acute Priority: High Current Visit: Yes Qualifiers: Urinary tract infection type: site unspecified Hematuria presence: without hematuria Qualified Code(s): N39.0 - Urinary tract infection, site not specified (7) Diabetes mellitus type 2 SNOMED Code(s): 38264489 Code(s): E11.9 - TYPE 2 DIABETES MELLITUS WITHOUT COMPLICATIONS Status: Acute Priority: High Current Visit: No Annotation/Comment:: 05-17-2017 Blood sugars monitored ac and hs. Novolog sliding scale utilized. Am blood sugar is 100. Appetite is good. continue with skin care and application of nystatin to skin folds. 05-18-17 Continue with ac and hs blodd sugar and sliding scale. FBS 138 today. continue with nystatin powder to skin folds, bid. (8) HTN, Benign hypertension SNOMED Code(s): 68661419 Code(s): I10 - ESSENTIAL (PRIMARY) HYPERTENSION Status: Acute Current Visit: No Annotation/Comment:: 09/23/2013 Blood pressure stable (9) Osteoarthritis SNOMED Code(s): 780744521 Code(s): M19.90 - UNSPECIFIED OSTEOARTHRITIS, UNSPECIFIED SITE Status: Acute Current Visit: No Annotation/Comment:: 10/31/2013 Pain must be better as she is ambulating more with PT and they stated she is more willing to work. Did start on zoloft last week and will increase further. - Problem List Review Problem List Initiated/Reviewed/Updated: Yes - My Orders Last 24 Hours: My Active Orders 07/24/17 17:51 Sodium Chloride 0.9% [Saline Flush] 10 ml FLUSH ASDIRECTED PRN Peripheral IV Insertion Adult [OM.PC] Routine 07/24/17 19:15 Furosemide [Lasix] 40 mg IVPUSH DAILY Sodium Chloride 0.9% [Normal Saline] 1,000 ml IV ASDIRECTED 07/24/17 19:16 CULTURE URINE [RM] Stat 07/24/17 20:00 Blood Glucose Check, Bedside [RC] 08,12,17,20 07/25/17 08:00 Apixaban 2.5 mg PO DAILY Ascorbate Calcium [Vitamin C] 500 mg PO DAILY Ciprofloxacin in D5W [Cipro in D5W 400 MG/200 ML] 400 mg Premix Bag 1 bag IV DAILY Non-Formulary Medication [NF Drug] 1.2 each SQ DAILY Vits A and D/White Pet/Lanolin [A + D Ointment] 1 applic TOP DAILY Zinc Gluconate [Zinc] 50 mg PO DAILY 07/25/17 Breakfast Consistent Carbohydrate Diet [DIET] Heart Healthy Diet [DIET] - Assessment/Plan Last 24 Hours: My Active Orders 07/24/17 17:51 Sodium Chloride 0.9% [Saline Flush] 10 ml FLUSH ASDIRECTED PRN Peripheral IV Insertion Adult [OM.PC] Routine 07/24/17 19:15 Furosemide [Lasix] 40 mg IVPUSH DAILY Sodium Chloride 0.9% [Normal Saline] 1,000 ml IV ASDIRECTED 07/24/17 19:16 CULTURE URINE [RM] Stat 07/24/17 20:00 Blood Glucose Check, Bedside [RC] 08,12,17,20 07/25/17 08:00 Apixaban 2.5 mg PO DAILY Ascorbate Calcium [Vitamin C] 500 mg PO DAILY Ciprofloxacin in D5W [Cipro in D5W 400 MG/200 ML] 400 mg Premix Bag 1 bag IV DAILY Non-Formulary Medication [NF Drug] 1.2 each SQ DAILY Vits A and D/White Pet/Lanolin [A + D Ointment] 1 applic TOP DAILY Zinc Gluconate [Zinc] 50 mg PO DAILY 07/25/17 Breakfast Consistent Carbohydrate Diet [DIET] Heart Healthy Diet [DIET] Plan: Low oxygen sat - maintain above 92% - currently on 5L NC. Continue vitals as directed. Will continue diuresis and repeat labs in am UTI - place on IV cipro daily due to renal dysfunction Elevated WBC - likely due to UTI - pending culture Renal dysfunction - we will continue to monitor in's and out's with gentle hydration and monitor lasix use.
[2017-07-24] MEDS ORDERED: traMADol 50 MG Tab PO PRN (19:04)
[2017-07-24] MEDS ORDERED: Furosemide 40 MG/4 ML VIAL ONE (19:05)
[2017-07-24] MEDS: Furosemide 40 MG/4 ML VIAL IVPUSH SCH (19:12)
[2017-07-24] MEDS ORDERED: Sodium Chloride 0.9% 1,000 ML IV SCH (19:15)
[2017-07-24] MEDS ORDERED: Simvastatin 40 MG Tab PO SCH (20:00)
[2017-07-24] MEDS ORDERED: INSULIN GLARGINE SQ SCH (20:00)
[2017-07-24] MEDS ORDERED: Gabapentin 100 MG Cap PO SCH (20:00)
[2017-07-24] MEDS ORDERED: [UNRECOGNIZED DRUG - OTHER] SQ SCH (20:00)
[2017-07-24] MEDS ORDERED: Insulin Glargine,Human Rec. Analog 100 Units/ML 3 ML Pen SUBCUT SCH (20:00)
[2017-07-24] MEDS: Acetaminophen 500 MG Tab PO SCH (21:02)
[2017-07-25] MEDS ORDERED: Levothyroxine 88 MCG Tab PO SCH (07:00)
--- NOTE | 2017-07-25 07:39 | CR ---
DATE OF SERVICE: 07/24/17 CLINICAL DATA: Decreased oxygen saturation. AP PORTABLE CHEST: Comparison made to a prior exam dated 05/15/17. The heart remains enlarged, unchanged. The aorta is calcified and ectatic. The pulmonary vascular congestion on the prior exam has improved. There is prominence of the proximal pulmonary artery suggesting pulmonary hypertension. There is persistent eventration of the right hemidiaphragm. There are atelectatic changes in the right lung base. The left lung base does appear clearer than on the prior study. The exam is otherwise unchanged. [id number] [facility]
[2017-07-25] MEDS: Ciprofloxacin in D5W 400 MG in Premix Bag 1 BAG IV SCH ×2 (07:57)
[2017-07-25] MEDS: Furosemide 40 MG/4 ML VIAL IVPUSH SCH (07:58)
[2017-07-25] MEDS ORDERED: Insulin Glargine,Human Rec. Analog 100 Units/ML 3 ML Pen SUBCUT SCH ×2 (08:00→20:00)
[2017-07-25] MEDS ORDERED: ZINC GLUCONATE 50 MG PO SCH (08:00)
[2017-07-25] MEDS ORDERED: Sertraline 100 MG Tab PO SCH ×2 (08:00)
[2017-07-25] MEDS ORDERED: Omeprazole 40 MG Cap.CR PO SCH (08:00)
[2017-07-25] MEDS ORDERED: metFORMIN 1,000 MG Tab PO SCH (08:00)
[2017-07-25] MEDS ORDERED: INSULIN GLARGINE SQ SCH (08:00)
[2017-07-25] MEDS ORDERED: APIXABAN 2.5 MG PO SCH (08:00)
[2017-07-25] MEDS ORDERED: Non-Formulary Medication 1 Each (Multivitamin [Multivitamins] 1 EACH) PO SCH (08:00)
[2017-07-25] MEDS ORDERED: Non-Formulary Medication 1 Each (Ascorbate Calcium [Vitamin C] 500 MG) PO SCH (08:00)
[2017-07-25] MEDS ORDERED: WARFARIN SODIUM 7.5 MG PO SCH (08:45)
[2017-07-25] MEDS ORDERED: Non-Formulary Medication 1 Each (Warfarin [Coumadin] 5 MG) PO SCH (08:45)
--- NOTE | 2017-07-25 09:27 | PCM.PN ---
- General Info Date of Service: 07/25/17 Subjective Update: Patient alert and oriented and denies any discomfort or difficulty breathing. She does not know why she is in the hospital. She does recall discussion with me yesterday. Patient resting comfortable in no distress and in bed. Breathing comfortably and denies any pain or sob. Functional Status: Reports: Pain Controlled, Tolerating Diet - Review of Systems General: Reports: Weakness HEENT: Reports: No Symptoms Pulmonary: Reports: No Symptoms Cardiovascular: Reports: No Symptoms Gastrointestinal: Reports: No Symptoms Genitourinary: Reports: No Symptoms Musculoskeletal: Reports: No Symptoms Skin: Reports: No Symptoms Neurological: Reports: Weakness Psychiatric: Reports: No Symptoms - Patient Data Vitals - Most Recent: Last Vital Signs Temp 36.6 C 07/25/17 07:59 Pulse 66 07/25/17 07:59 Resp 20 07/25/17 07:59 BP 147/81 H 07/25/17 07:59 Pulse Ox 94 L 07/25/17 07:59 Weight - Most Recent: 156.308 kg Lab Results Last 24 Hours: Laboratory Results - last 24 hr 07/25/17 07/25/17 Range/Units 07:06 08:15 Sodium 149 H (136-145) mmol/L Potassium 4.0 (3.5-5.1) mmol/L Chloride 104 (98-107) mmol/L Carbon Dioxide 42.2 H (21.0-32.0) mmol/L Anion Gap 6.8 (5.0-15.0) mmol/L BUN 53 H* (8-26) mg/dL Creatinine 1.56 H D (0.55-1.02) mg/dL Est Cr Clr Drug Dosing 26.08 mL/min Estimated GFR (MDRD) 32 L (>60) MLS/MIN BUN/Creatinine Ratio 34.0 H (6-25) Glucose 147 H (74-100) mg/dL POC Glucose 120 H (74-110) mg/dL Calcium 8.4 L (8.5-10.1) mg/dL Total Bilirubin 0.3 D (0.0-1.0) mg/dL AST 17 (15-37) U/L ALT 13 (12-78) U/L Alkaline Phosphatase 73 (46-116) U/L Total Protein 6.5 (6.4-8.2) g/dL Albumin 2.7 L (3.4-5.0) g/dL Globulin 3.8 (2.2-4.2) g/dL Albumin/Globulin Ratio 0.7 L (0.8-2.0) TSH, Ultra Sensitive 1.484 D (0.358-3.740) uIU/mL Med Orders - Current: Current Medications Furosemide (Lasix) 40 mg IVPUSH DAILY JEWEL Last Admin: 07/25/17 07:58 Dose: 40 mg Ciprofloxacin/Dextrose 400 mg/ (Premix) 200 mls @ 200 mls/hr IV DAILY JEWEL Last Admin: 07/25/17 07:57 Dose: 200 mls/hr Sodium Chloride (Normal Saline) 1,000 mls @ 0 mls/hr IV ASDIRECTED JEWEL PRN Reason: KVO Last Admin: 07/24/17 19:10 Dose: 30 mls/hr Multivitamins/Minerals (Thera M Plus) 1 tab PO DAILY JEWEL Non-Formulary Medication (Apixaban) 2.5 mg PO DAILY JEWEL Non-Formulary Medication (Ascorbate Calcium [Vitamin C]) 500 mg PO DAILY JEWEL Non-Formulary Medication (Vits A And D/White Pet/Lanolin [A + D Ointment]) 1 applic TOP DAILY JWEEL Non-Formulary Medication (Zinc Gluconate [Zinc]) 50 mg PO DAILY JEWEL Non-Formulary Medication (Nf Drug) 1.2 each SQ DAILY JEWEL Non-Formulary Medication (Acetaminophen [Tylenol Extra Strength]) 1,000 mg PO 0700,1900 JEWEL Non-Formulary Medication (Arginine/Glutamine/Calcium Hmb [Mingo Packet]) 1 each PO DAILY JEWEL Non-Formulary Medication (Ascorbate Calcium [Vitamin C]) 500 mg PO DAILY JEWEL Non-Formulary Medication (Ferrous Sulfate [Ferrous Sulfate]) 325 mg PO 0700, 1900 JEWEL Non-Formulary Medication (Insulin Aspart [Novolog Flexpen]) 0 unit SQ TIDMEALS JEWEL Non-Formulary Medication (Insulin Glarg,Human.Rec.Analog [Lantus Solostar]) 16 unit SUBCUT 2000 JEWEL Non-Formulary Medication (Insulin Glarg,Human.Rec.Analog [Lantus Solostar]) 26 unit SUBCUT 0800 JEWEL Non-Formulary Medication (L.Acidoph,Paracasei, B.Lactis [Probiotic]) 1 each PO 1200 JEWEL Non-Formulary Medication (Levothyroxine [Synthroid]) 88 mcg PO ACBREAKFAST JEWEL Non-Formulary Medication (Liraglutide [Victoza]) 1.2 mg SUBCUT DAILY JEWEL Non-Formulary Medication (Metformin Hcl [Metformin Hcl]) 500 mg PO 0700,1700 JEWEL Non-Formulary Medication (Multivitamins [Childrens Chewable Vitamin]) 1 tab PO DAILY JEWEL Non-Formulary Medication (Nystatin [Nystatin]) 1 applic TOP BID JEWEL Non-Formulary Medication (Omeprazole [Omeprazole]) 40 mg PO DAILY JEWEL Non-Formulary Medication (Polyethylene Glycol 3350 [Miralax]) 17 gm PO DAILY JEWEL Non-Formulary Medication (Potassium Chloride [Potassium Chloride]) 20 meq PO DAILY JEWEL Non-Formulary Medication (Pregabalin [Lyrica]) 150 mg PO 0700,1100,1900 JEWEL Non-Formulary Medication (Sertraline Hcl [Zoloft]) 100 mg PO DAILY JEWEL Non-Formulary Medication (Simvastatin [Zocor]) 20 mg PO BEDTIME JEWEL Non-Formulary Medication (Tramadol [Ultram]) 50 mg PO DAILY JEWEL Non-Formulary Medication (Warfarin Sodium [Coumadin]) 7.5 mg PO ASDIRECTED JEWEL Non-Formulary Medication (Warfarin [Coumadin]) 5 mg PO ASDIRECTED JEWEL Non-Formulary Medication (Zinc Gluconate [Zinc]) 50 mg PO DAILY [facility] Sodium Chloride (Saline Flush) 10 ml FLUSH ASDIRECTED PRN PRN Reason: Keep Vein Open Discontinued Medications Acetaminophen (Tylenol Extra Strength) 1,000 mg PO BID [facility] Last Admin: 07/24/17 21:02 Dose: Not Given Furosemide (Lasix) Confirm Administered Dose 40 mg .ROUTE .STK-MED ONE Stop: 07/24/17 19:06 Last Admin: 07/24/17 21:01 Dose: Not Given Gabapentin (Neurontin) 600 mg PO TID [facility] Insulin Glargine (Lantus Solostar) 16 units SUBCUT BEDTIME [facility] Last Admin: 07/24/17 21:02 Dose: Not Given Insulin Glargine (Lantus Solostar) 26 units SUBCUT DAILY [facility] Last Admin: 07/25/17 08:49 Dose: 26 units Levothyroxine Sodium (Synthroid) 88 mcg PO ACBREAKFAST [facility] Last Admin: 07/25/17 07:57 Dose: 88 mcg Metformin HCl (Glucophage) 500 mg PO BIDM [facility] Non-Formulary Medication (Insulin Glarg,Human.Rec.Analog [Lantus]) 14 unit SQ BEDTIME [facility] Non-Formulary Medication (Insulin Glarg,Human.Rec.Analog [Lantus]) 24 units SQ DAILY [facility] Omeprazole (Omeprazole) 40 mg PO DAILY [facility] Pregabalin (Lyrica) 150 mg PO TID [facility] Last Admin: 07/24/17 21:02 Dose: Not Given Sertraline HCl (Zoloft) 100 mg PO DAILY [facility] Sertraline HCl (Zoloft) 150 mg PO DAILY [facility] Simvastatin (Zocor) 20 mg PO BEDTIME [facility] Last Admin: 07/24/17 21:02 Dose: Not Given Tramadol HCl (Ultram) 50 mg PO BID PRN PRN Reason: Pain - Exam Quality Assessment: Supplemental Oxygen General: Alert, Oriented, Cooperative HEENT: Pupils Equal, Pupils Reactive Neck: Supple Lungs: Normal Respiratory Effort, Crackles Cardiovascular: Regular Rate, Regular Rhythm GI/Abdominal Exam: Normal Bowel Sounds Extremities: Normal Inspection Peripheral Pulses: 2+: Dorsalis Pedis (L), Dorsalis Pedis (R) Skin: Warm, Dry, Intact Neurological: No New Focal Deficit Psy/Mental Status: Alert, Normal Affect, Normal Mood - Problem List & Annotations (1) Low oxygen saturation SNOMED Code(s): 018982523 Code(s): R79.81 - ABNORMAL BLOOD-GAS LEVEL Status: Resolved Priority: High Current Visit: Yes Annotation/Comment:: Baseline is 3L NC oxygen (2) Elevated WBC count SNOMED Code(s): 817699512 Code(s): D72.829 - ELEVATED WHITE BLOOD CELL COUNT, UNSPECIFIED Status: Resolved Priority: High Current Visit: Yes (3) Lethargy SNOMED Code(s): 661468499 Code(s): R53.83 - OTHER FATIGUE Status: Resolved Priority: High Current Visit: Yes (4) [facility] resident SNOMED Code(s): 751620742 Code(s): Z59.3 - PROBLEMS RELATED TO LIVING IN RESIDENTIAL INSTITUTION Status: Chronic Priority: High Current Visit: Yes (5) Renal dysfunction Status: Chronic Priority: Medium Current Visit: Yes (6) UTI (urinary tract infection) SNOMED Code(s): 41656043 Code(s): N39.0 - URINARY TRACT INFECTION, SITE NOT SPECIFIED Status: Resolved Priority: High Current Visit: Yes Qualifiers: Urinary tract infection type: site unspecified Hematuria presence: without hematuria Qualified Code(s): N39.0 - Urinary tract infection, site not specified (7) Diabetes mellitus type 2 SNOMED Code(s): 10319813 Code(s): E11.9 - TYPE 2 DIABETES MELLITUS WITHOUT COMPLICATIONS Status: Chronic Priority: High Current Visit: Yes Annotation/Comment:: 05-17-2017 Blood sugars monitored ac and hs. Novolog sliding scale utilized. Am blood sugar is 100. Appetite is good. continue with skin care and application of nystatin to skin folds. 05-18-17 Continue with ac and hs blodd sugar and sliding scale. FBS 138 today. continue with nystatin powder to skin folds, bid. (8) HTN, Benign hypertension SNOMED Code(s): 50480991 Code(s): I10 - ESSENTIAL (PRIMARY) HYPERTENSION Status: Chronic Priority : Medium Current Visit: Yes Annotation/Comment:: 09/23/2013 Blood pressure stable (9) Osteoarthritis SNOMED Code(s): 764513421 Code(s): M19.90 - UNSPECIFIED OSTEOARTHRITIS, UNSPECIFIED SITE Status: Acute Priority: Low Current Visit: Yes Annotation/Comment:: 10/31/2013 Pain must be better as she is ambulating more with PT and they stated she is more willing to work. Did start on zoloft last week and will increase further. - Problem List Review Problem List Initiated/Reviewed/Updated: Yes - My Orders Last 24 Hours: My Active Orders 07/25/17 06:37 Resuscitation Status Routine 07/25/17 07:52 CBC WITH AUTO DIFF [HEME] Routine 07/25/17 08:00 Multivitamins w-Iron/Ca/FA/Min [Thera M Plus] 1 tab PO DAILY 07/25/17 08:15 CULTURE MRSA SURVEY [RM] Routine 07/25/17 08:45 Warfarin Sodium [Coumadin] 7.5 mg PO ASDIRECTED Warfarin [Coumadin] 5 mg PO ASDIRECTED 07/25/17 11:00 Pregabalin [Lyrica] 150 mg PO 0700,1100,1900 07/25/17 12:00 Insulin Aspart [Novolog Flexpen] See Dose Instructions SQ TIDMEALS L.acidoph,Paracasei, B.lactis [Probiotic] 1 each PO 1200 07/25/17 17:00 metFORMIN HCl [Metformin HCl] 500 mg PO 0700,1700 07/25/17 19:00 Acetaminophen [Tylenol Extra Strength] 1,000 mg PO 0700,1900 Ferrous Sulfate [Ferrous Sulfate] 325 mg PO 0700,1900 07/25/17 20:00 Insulin Glarg,Human.Rec.Analog [Lantus Solostar] 16 unit SUBCUT 2000 Nystatin [Nystatin] 1 applic TOP BID Simvastatin [Zocor] 20 mg PO BEDTIME 07/26/17 07:00 Levothyroxine [Synthroid] 88 mcg PO ACBREAKFAST 07/26/17 08:00 Arginine/Glutamine/Calcium Hmb [Mingo Packet] 1 each PO DAILY Ascorbate Calcium [Vitamin C] 500 mg PO DAILY Insulin Glarg,Human.Rec.Analog [Lantus Solostar] 26 unit SUBCUT 0800 Liraglutide [Victoza] 1.2 mg SUBCUT DAILY Multivitamins [Childrens Chewable Vitamin] 1 tab PO DAILY Omeprazole [Omeprazole] 40 mg PO DAILY Polyethylene Glycol 3350 [Miralax] 17 gm PO DAILY Potassium Chloride [Potassium Chloride] 20 meq PO DAILY Sertraline HCl [Zoloft] 100 mg PO DAILY Zinc Gluconate [Zinc] 50 mg PO DAILY traMADol [Ultram] 50 mg PO DAILY - Plan Plan:: WBC elevation resolved. Hypernatremia - we will start 1/2 NS at gentle hydration UTI - continue cipro as directed daily Renal dysfunction - improvement seen - monitor ins and out, and lasix use Oxygen saturation- improved and now on 3L baseline NC CHF - continue lasix, ECHO ordered. 07/25/17 Repeat labs in am. Echo to be done next week. UTI - resolving. Continue monitoring hypernatremia. Oxygen back to baseline.
[2017-07-25] MEDS ORDERED: Sodium Chloride 0.45% 1,000 ML IV SCH ×2 (09:45→10:15)
[2017-07-25] MEDS: VICTOZA SQ SCH (10:09)
[2017-07-25] MEDS ORDERED: Non-Formulary Medication 1 Each (Pregabalin [Lyrica] 150 MG) PO SCH (11:00)
[2017-07-25] MEDS ORDERED: Nystatin Topical Powder 15 GM Bottle ONE (11:27)
[2017-07-25] MEDS: Ascorbic Acid 500 MG Tab PO SCH (11:35)
[2017-07-25] MEDS: Multivitamins with Iron/Calcium/Folic Acid/Minerals Tab PO SCH (11:35)
[2017-07-25] MEDS: [UNRECOGNIZED DRUG - OTHER] TOP SCH (11:36)
[2017-07-25] MEDS: VITS A AND D TOP SCH (11:36)
[2017-07-25] MEDS: WHITE PET TOP SCH (11:36)
[2017-07-25] MEDS: Sertraline 100 MG Tab PO SCH (11:36)
[2017-07-25] MEDS: LANOLIN TOP SCH (11:36)
[2017-07-25] MEDS ORDERED: Pregabalin 75 MG Cap ONE ×2 (11:38→17:31)
[2017-07-25] MEDS: Acetaminophen 500 MG Tab PO SCH ×2 (11:52→20:00)
[2017-07-25] MEDS ORDERED: Non-Formulary Medication 1 Each (L.Acidoph,Paracasei, B.Lactis [Probiotic] 1 EACH) PO SCH (12:00)
[2017-07-25] MEDS ORDERED: INSULIN ASPART SQ SCH (12:00)
[2017-07-25] MEDS: Insulin Aspart 100 Units/ML 3 ML Pen SUBCUT SCH ×2 (14:02→20:18)
[2017-07-25] MEDS ORDERED: Non-Formulary Medication 1 Each (Metformin Hcl [Metformin Hcl] 500 MG) PO SCH (17:00)
[2017-07-25] MEDS ORDERED: Warfarin 5 MG Tab PO SCH (18:00)
[2017-07-25] MEDS ORDERED: Non-Formulary Medication 1 Each (Ferrous Sulfate [Ferrous Sulfate] 325 MG) PO SCH (19:00)
[2017-07-25] MEDS ORDERED: ACETAMINOPHEN 1000 MG PO SCH (19:00)
[2017-07-25] MEDS ORDERED: [UNRECOGNIZED DRUG - OTHER] SUBCUT SCH (20:00)
[2017-07-25] MEDS ORDERED: Enoxaparin 150 MG/1 ML Syringe SUBCUT SCH (20:00)
[2017-07-25] MEDS ORDERED: Non-Formulary Medication 1 Each (Simvastatin [Zocor] 20 MG) PO SCH (20:00)
[2017-07-25] MEDS: traMADol 50 MG Tab PO SCH (20:00)
[2017-07-25] MEDS ORDERED: Polyethylene Glycol 3350 Powder 17 GM Packet PO SCH (20:00)
[2017-07-25] MEDS ORDERED: INSULIN GLARG HUMAN REC ANALOG SUBCUT SCH (20:00)
[2017-07-25] MEDS ORDERED: Non-Formulary Medication 1 Each (Nystatin [Nystatin] 1 APPLIC) TOP SCH (20:00)
[2017-07-25] MEDS ORDERED: Simvastatin 20 MG Tab PO SCH (20:00)
[2017-07-25] MEDS: Ferrous Sulfate 325 MG Tab PO SCH (20:01)
[2017-07-25] MEDS: Nystatin Topical Powder 15 GM Bottle TOP SCH (20:22)
[2017-07-26] MEDS ORDERED: Non-Formulary Medication 1 Each (Levothyroxine [Synthroid] 88 MCG) PO SCH (07:00)
[2017-07-26] MEDS ORDERED: Levothyroxine 88 MCG Tab PO SCH (07:00)
[2017-07-26] MEDS: Ciprofloxacin in D5W 400 MG in Premix Bag 1 BAG IV SCH ×2 (07:44)
[2017-07-26] MEDS: Furosemide 40 MG/4 ML VIAL IVPUSH SCH (07:46)
[2017-07-26] MEDS: Acetaminophen 500 MG Tab PO SCH (07:50)
[2017-07-26] MEDS: Ferrous Sulfate 325 MG Tab PO SCH (07:50)
[2017-07-26] MEDS: traMADol 50 MG Tab PO SCH (07:50)
[2017-07-26] MEDS: Insulin Aspart 100 Units/ML 3 ML Pen SUBCUT SCH (07:51)
[2017-07-26] MEDS: Multivitamins with Iron/Calcium/Folic Acid/Minerals Tab PO SCH (07:51)
[2017-07-26] MEDS: Nystatin Topical Powder 15 GM Bottle TOP SCH (07:51)
[2017-07-26] MEDS: Ascorbic Acid 500 MG Tab PO SCH (07:51)
[2017-07-26] MEDS: Sertraline 100 MG Tab PO SCH (07:51)
[2017-07-26] MEDS ORDERED: Non-Formulary Medication 1 Each (Ascorbate Calcium [Vitamin C] 500 MG) PO SCH (08:00)
[2017-07-26] MEDS ORDERED: Non-Formulary Medication 1 Each (Tramadol [Ultram] 50 MG) PO SCH (08:00)
[2017-07-26] MEDS ORDERED: [UNRECOGNIZED DRUG - OTHER] SUBCUT SCH (08:00)
[2017-07-26] MEDS ORDERED: MULTIVITAMINS PO SCH (08:00)
[2017-07-26] MEDS ORDERED: Potassium Chloride 20 MEQ Tab.ER PO SCH (08:00)
[2017-07-26] MEDS ORDERED: ARGININE PO SCH (08:00)
[2017-07-26] MEDS ORDERED: Non-Formulary Medication 1 Each (Liraglutide [Victoza] 1.2 MG) SUBCUT SCH (08:00)
[2017-07-26] MEDS ORDERED: Insulin Glargine,Human Rec. Analog 100 Units/ML 3 ML Pen SUBCUT SCH (08:00)
[2017-07-26] MEDS ORDERED: INSULIN GLARGINE SUBCUT SCH (08:00)
[2017-07-26] MEDS ORDERED: SERTRALINE HCL 100 MG PO SCH (08:00)
[2017-07-26] MEDS ORDERED: Non-Formulary Medication 1 Each (Potassium Chloride [Potassium Chloride] 20 MEQ) PO SCH (08:00)
[2017-07-26] MEDS ORDERED: GLUTAMINE PO SCH (08:00)
[2017-07-26] MEDS ORDERED: Non-Formulary Medication 1 Each (Omeprazole [Omeprazole] 40 MG) PO SCH (08:00)
[2017-07-26] MEDS ORDERED: Zinc (Zinc Gluconate) 50 MG Tab PO SCH (08:00)
[2017-07-26] MEDS ORDERED: Omeprazole 40 MG Cap.CR PO SCH (08:00)
[2017-07-26] MEDS ORDERED: Pregabalin 75 MG Cap PO SCH (08:00)
[2017-07-26] MEDS ORDERED: ZINC GLUCONATE 50 MG PO SCH (08:00)
[2017-07-26] MEDS ORDERED: CALCIUM HMB PO SCH (08:00)
[2017-07-26 08:01] VITALS: BP 154/85
[2017-07-26] MEDS ORDERED: Pregabalin 75 MG Cap ONE (08:09)
[2017-07-26] MEDS: VICTOZA SQ SCH (08:18)
[2017-07-26] MEDS: VITS A AND D TOP SCH (10:00)
[2017-07-26] MEDS: WHITE PET TOP SCH (10:00)
[2017-07-26] MEDS: [UNRECOGNIZED DRUG - OTHER] TOP SCH (10:00)
[2017-07-26] MEDS: LANOLIN TOP SCH (10:00)
--- NOTE | 2017-07-26 11:30 | PCM.DCSUM1 ---
Discharge Summary - Discharge Data Discharge Date: 07/26/17 (]) Discharge Disposition: DC/Tfer to [employer] [facility] 63 Condition: Good - Discharge Diagnosis/Problem(s) (1) Low oxygen saturation SNOMED Code(s): 486229033 ICD Code: R79.81 - ABNORMAL BLOOD-GAS LEVEL Status: Resolved Priority: High Current Visit: Yes Problem Details: Baseline is 3L [place] oxygen (2) Elevated WBC count SNOMED Code(s): 623348781 ICD Code: D72.829 - ELEVATED WHITE BLOOD CELL COUNT, UNSPECIFIED Status: Resolved Priority: High Current Visit: Yes (3) Lethargy SNOMED Code(s): 508392281 ICD Code: R53.83 - OTHER FATIGUE Status: Resolved Priority: High Current Visit: Yes (4) [facility] resident SNOMED Code(s): 038103599 ICD Code: Z59.3 - PROBLEMS RELATED TO LIVING IN RESIDENTIAL INSTITUTION Status: Chronic Priority: High Current Visit: Yes (5) Renal dysfunction Status: Chronic Priority: Medium Current Visit: Yes (6) UTI (urinary tract infection) SNOMED Code(s): 28420242 ICD Code: N39.0 - URINARY TRACT INFECTION, SITE NOT SPECIFIED Status: Resolved Priority: High Current Visit: Yes Qualifiers: Urinary tract infection type: site unspecified Hematuria presence: without hematuria Qualified Code(s): N39.0 - Urinary tract infection, site not specified (7) Diabetes mellitus type 2 SNOMED Code(s): 28799203 ICD Code: E11.9 - TYPE 2 DIABETES MELLITUS WITHOUT COMPLICATIONS Status: Chronic Priority: High Current Visit: Yes Problem Details: 05-17-2017 Blood sugars monitored ac and hs. Novolog sliding scale utilized. Am blood sugar is 100. Appetite is good. continue with skin care and application of nystatin to skin folds. 05-18-17 Continue with ac and hs blodd sugar and sliding scale. FBS 138 today. continue with nystatin powder to skin folds, bid. (8) HTN, Benign hypertension SNOMED Code(s): 19267480 ICD Code: I10 - ESSENTIAL (PRIMARY) HYPERTENSION Status: Chronic Priority : Medium Current Visit: Yes Problem Details: 09/23/2013 Blood pressure stable (9) Osteoarthritis SNOMED Code(s): 482756608 ICD Code: M19.90 - UNSPECIFIED OSTEOARTHRITIS, UNSPECIFIED SITE Status: Acute Priority: Low Current Visit: Yes Problem Details: 10/31/2013 Pain must be better as she is ambulating more with PT and they stated she is more willing to work. Did start on zoloft last week and will increase further. - Patient Instructions Diet: Usual Diet as Tolerated Activity: As Tolerated - Discharge Plan Prescriptions/Med Rec: Ciprofloxacin HCl [Cipro] 500 mg PO BID #6 tablet Home Medications: Home Meds Acetaminophen [Tylenol Extra Strength] 1,000 mg PO 0700,1900 07/25/17 [History] Arginine/Glutamine/Calcium Hmb [[place] Packet] 1 each PO DAILY 07/25/17 [History] Ascorbate Calcium [Vitamin C] 500 mg PO DAILY 07/25/17 [History] Ferrous Sulfate 325 mg PO 0700,1900 07/25/17 [History] Insulin Aspart [Novolog Flexpen] See Protocol SQ TIDMEALS 07/25/17 [History] Insulin Glarg,Human.Rec.Analog [Lantus Solostar] 26 unit SUBCUT 0800 07/25/17 [ History] L.acidoph,Paracasei, B.lactis [Probiotic] 1 each PO 1200 07/25/17 [History] Levothyroxine [Synthroid] 88 mcg PO ACBREAKFAST 07/25/17 [History] Liraglutide [Victoza] 1.2 mg SUBCUT DAILY 07/25/17 [History] Multivitamins [Childrens Chewable Vitamin] 1 tab PO DAILY 07/25/17 [History] Nystatin 1 applic TOP BID 07/25/17 [History] Omeprazole 40 mg PO DAILY 07/25/17 [History] Polyethylene Glycol 3350 [Miralax] 17 gm PO DAILY 07/25/17 [History] Potassium Chloride 20 meq PO DAILY 07/25/17 [History] Pregabalin [Lyrica] 150 mg PO 0700,1100,1900 07/25/17 [History] Sertraline HCl [Zoloft] 100 mg PO DAILY 07/25/17 [History] Simvastatin [Zocor] 20 mg PO BEDTIME 07/25/17 [History] Warfarin Sodium [Coumadin] 7.5 mg PO ASDIRECTED 07/25/17 [History] Warfarin [Coumadin] 5 mg PO ASDIRECTED 07/25/17 [History] Zinc Gluconate [Zinc] 50 mg PO DAILY 07/25/17 [History] traMADol [Ultram] 50 mg PO DAILY 07/25/17 [History] Acetaminophen [Tylenol Extra Strength] 1,000 mg PO BID tablet 07/26/17 [Rx] Ascorbic Acid [Vitamin C] 500 mg PO DAILY tablet 07/26/17 [Rx] Ciprofloxacin HCl [Cipro] 500 mg PO BID #6 tablet 07/26/17 [Rx] Ferrous Sulfate 325 mg PO BID tablet 07/26/17 [Rx] Furosemide [Lasix] 40 mg PO DAILY tablet 07/26/17 [Rx] Insulin Aspart [NovoLOG] 0 unit SUBCUT TID pen 07/26/17 [Rx] Insulin Glarg,Human.Rec.Analog [Lantus Solostar] 16 units SUBCUT QPM pen [Rx] Insulin Glarg,Human.Rec.Analog [Lantus Solostar] 26 units SUBCUT DAILY pen 05/03 [Rx] Levothyroxine [Synthroid] 88 mcg PO ACBREAKFAST tablet 07/26/17 [Rx] Non-Formulary Medication [NF Drug] 1.2 each SQ DAILY each 07/26/17 [Rx] Nystatin [Nystop] 1 gm TOP BID bottle 07/26/17 [Rx] Omeprazole 40 mg PO DAILY cap.cr 07/26/17 [Rx] Polyethylene Glycol 3350 [MiraLAX] 17 gm PO BEDTIME packet 07/26/17 [Rx] Potassium Chloride [Klor-Con M20] 20 meq PO DAILY tab.er 07/26/17 [Rx] Pregabalin [Lyrica] 150 mg PO TID cap 07/26/17 [Rx] Sertraline [Zoloft] 100 mg PO DAILY tablet 07/26/17 [Rx] Simvastatin [Zocor] 20 mg PO BEDTIME tablet 07/26/17 [Rx] Sodium Chloride 0.9% [Saline Flush] 10 ml FLUSH ASDIRECTED PRN syringe [Rx] Vits A and D/White Pet/Lanolin [A + D Ointment] 1 applic TOP DAILY 07/26/17 [Rx] Warfarin [Coumadin] 5 mg PO SuTuThSa@1800 tablet 07/26/17 [Rx] Warfarin [Coumadin] 7.5 mg PO MoWeFr@1800 tablet 07/26/17 [Rx] Zinc Gluconate [Zinc] 50 mg PO DAILY tablet 07/26/17 [Rx] traMADol [Ultram] 50 mg PO BID tablet 07/26/17 [Rx] Forms: ED Department Discharge Referrals: PCP,None [Primary Care Provider] - - Discharge Summary/Plan Comment Discharge Summary/Plan Comment: Discussed of UTI treatment and continued oral medication and management. Discussed lasix change, metformin discontinued, lantus d/c qhs and adjustment, f /u with PCP. F/u ECHO as directed. May return to care center with changes and f/u. - Patient Data Vitals - Most Recent: Last Vital Signs Temp 36.4 C 07/26/17 08:00 Pulse 67 07/26/17 08:00 Resp 16 07/26/17 08:00 BP 154/85 H 07/26/17 08:00 Pulse Ox 93 L 07/26/17 08:00 Weight - Most Recent: 156.308 kg I&O - Last 24 hours: Intake & Output 07/25/17 07/26/17 07/26/17 22:59 06:59 14:59 Intake Total 1245 774 Output Total 825 202 Balance 420 -76 Lab Results - Last 24 hrs: Laboratory Results - last 24 hr 07/25/17 07/25/17 07/26/17 Range/Units 12:56 18:55 07:15 WBC 7.5 D (4.0-11.0) K/uL RBC 3.91 (3.80-5.80) M/uL Hgb 12.5 (11.5-16.5) g/dL Hct 40.7 (37.0-47.0) % MCV 104 H (76-96) fL MCH 32.0 (27.0-32.0) pg MCHC 30.7 L (31.0-35.0) g/dL RDW 16.3 H (11.0-16.0) % Plt Count 157 (150-500) K/uL MPV 10.7 H (6.0-10.0) fL Neut % (Auto) 65.0 (45.0-70.0) % Lymph % (Auto) 23.8 (20.0-40.0) % [place] % (Auto) 8.7 (3.0-10.0) % Eos % (Auto) 2.4 (1.0-5.0) % Baso % (Auto) 0.1 (0.0-0.5) % Neut # (Auto) 4.85 (2.00-7.50) K/uL Lymph # (Auto) 1.78 (1.50-4.00) K/uL [place] # (Auto) 0.65 (0.20-0.80) K/uL Eos # (Auto) 0.18 (0.04-0.40) K/uL Baso # (Auto) 0.01 L (0.02-0.10) K/uL Sodium (136-145) mmol/L Potassium (3.5-5.1) mmol/L Chloride (98-107) mmol/L Carbon Dioxide (21.0-32.0) mmol/L Anion Gap (5.0-15.0) mmol/L BUN (8-26) mg/dL Creatinine (0.55-1.02) mg/dL Est Cr Clr Drug Dosing mL/min Estimated GFR (MDRD) (>60) MLS/MIN BUN/Creatinine Ratio (6-25) Glucose (74-100) mg/dL POC Glucose 220 H 171 H (74-110) mg/dL Calcium (8.5-10.1) mg/dL Total Bilirubin (0.0-1.0) mg/dL AST (15-37) U/L ALT (12-78) U/L Alkaline Phosphatase (46-116) U/L Total Protein (6.4-8.2) g/dL Albumin (3.4-5.0) g/dL Globulin (2.2-4.2) g/dL Albumin/Globulin Ratio (0.8-2.0) 07/26/17 Range/Units 07:15 WBC (4.0-11.0) K/uL RBC (3.80-5.80) M/uL Hgb (11.5-16.5) g/dL Hct (37.0-47.0) % MCV (76-96) fL MCH (27.0-32.0) pg MCHC (31.0-35.0) g/dL RDW (11.0-16.0) % Plt Count (150-500) K/uL MPV (6.0-10.0) fL Neut % (Auto) (45.0-70.0) % Lymph % (Auto) (20.0-40.0) % [place] % (Auto) (3.0-10.0) % Eos % (Auto) (1.0-5.0) % Baso % (Auto) (0.0-0.5) % Neut # (Auto) (2.00-7.50) K/uL Lymph # (Auto) (1.50-4.00) K/uL [place] # (Auto) (0.20-0.80) K/uL Eos # (Auto) (0.04-0.40) K/uL Baso # (Auto) (0.02-0.10) K/uL Sodium 148 H (136-145) mmol/L Potassium 3.9 (3.5-5.1) mmol/L Chloride 103 (98-107) mmol/L Carbon Dioxide 43.4 H (21.0-32.0) mmol/L Anion Gap 5.5 (5.0-15.0) mmol/L BUN 38 H D (8-26) mg/dL Creatinine 1.36 H (0.55-1.02) mg/dL Est Cr Clr Drug Dosing 29.91 mL/min Estimated GFR (MDRD) 38 L (>60) MLS/MIN BUN/Creatinine Ratio 27.9 H (6-25) Glucose 91 D (74-100) mg/dL POC Glucose (74-110) mg/dL Calcium 8.6 (8.5-10.1) mg/dL Total Bilirubin 0.3 (0.0-1.0) mg/dL AST 18 (15-37) U/L ALT 12 (12-78) U/L Alkaline Phosphatase 66 (46-116) U/L Total Protein 6.7 (6.4-8.2) g/dL Albumin 2.4 L (3.4-5.0) g/dL Globulin 4.3 H (2.2-4.2) g/dL Albumin/Globulin Ratio 0.6 L (0.8-2.0) Med Orders - Current: Current Medications Acetaminophen (Tylenol Extra Strength) 1,000 mg PO BID JEWEL Last Admin: 07/26/17 07:50 Dose: 1,000 mg Ascorbic Acid (Vitamin C) 500 mg PO DAILY [facility] Last Admin: 07/26/17 07:51 Dose: 500 mg Ferrous Sulfate (Ferrous Sulfate) 325 mg PO BID [facility] Last Admin: 07/26/17 07:50 Dose: 325 mg Furosemide (Lasix) 40 mg PO DAILY [facility] Sodium Chloride (Sodium Chloride 0.45%) 1,000 mls @ 30 mls/hr IV ASDIRECTED JEWEL PRN Reason: KVO Last Admin: 07/25/17 20:07 Dose: 30 mls/hr Insulin Aspart (Novolog) 0 unit SUBCUT TID [facility] PRN Reason: Protocol Last Admin: 07/26/17 07:51 Dose: Not Given Insulin Glargine (Lantus Solostar) 16 units SUBCUT QPM [facility] Last Admin: 07/25/17 20:17 Dose: 16 units Insulin Glargine (Lantus Solostar) 26 units SUBCUT DAILY [facility] Last Admin: 07/26/17 07:41 Dose: 26 units Levothyroxine Sodium (Synthroid) 88 mcg PO ACBREAKFAST [facility] Last Admin: 07/26/17 07:40 Dose: 88 mcg Multivitamins/Minerals (Thera M Plus) 1 tab PO DAILY [facility] Last Admin: 07/26/17 07:51 Dose: 1 tab Non-Formulary Medication (Vits A And D/White Pet/Lanolin [A + D Ointment]) 1 applic TOP DAILY [facility] Last Admin: 07/26/17 10:00 Dose: Not Given Victoza 1.2 each SQ DAILY [facility] Last Admin: 07/26/17 08:18 Dose: 1.2 each Nystatin (Nystop) 1 gm TOP BID [facility] Last Admin: 07/26/17 07:51 Dose: 1 applic Omeprazole (Omeprazole) 40 mg PO DAILY [facility] Last Admin: 07/26/17 07:50 Dose: 40 mg Polyethylene Glycol (Miralax) 17 gm PO BEDTIME [facility] Last Admin: 07/25/17 19:59 Dose: 17 gm Potassium Chloride (Klor-Con M20) 20 meq PO DAILY [facility] Last Admin: 07/26/17 07:50 Dose: 20 meq Pregabalin (Lyrica) 150 mg PO TID [facility] Last Admin: 07/26/17 08:22 Dose: Not Given Sertraline HCl (Zoloft) 100 mg PO DAILY [facility] Last Admin: 07/26/17 07:51 Dose: 100 mg Simvastatin (Zocor) 20 mg PO BEDTIME [facility] Last Admin: 07/25/17 20:00 Dose: 20 mg Sodium Chloride (Saline Flush) 10 ml FLUSH ASDIRECTED PRN PRN Reason: Keep Vein Open Tramadol HCl (Ultram) 50 mg PO BID [facility] Last Admin: 07/26/17 07:50 Dose: 50 mg Warfarin Sodium (Coumadin) 7.5 mg PO MoWeFr@1800 [facility] Warfarin Sodium (Coumadin) 5 mg PO SuTuThSa@1800 [facility] Last Admin: 07/25/17 17:38 Dose: 5 mg Zinc Gluconate (Zinc) 50 mg PO DAILY [facility] Last Admin: 07/26/17 07:51 Dose: 50 mg Discontinued Medications Acetaminophen (Tylenol Extra Strength) 1,000 mg PO BID [facility] Last Admin: 07/25/17 11:52 Dose: Not Given Enoxaparin Sodium (Lovenox) 150 mg SUBCUT Q12HR [facility] Furosemide (Lasix) 40 mg IVPUSH DAILY [facility] Last Admin: 07/26/17 07:46 Dose: 40 mg Furosemide (Lasix) Confirm Administered Dose 40 mg .ROUTE .STK-MED ONE Stop: 07/24/17 19:06 Last Admin: 07/24/17 21:01 Dose: Not Given Gabapentin (Neurontin) 600 mg PO TID [facility] Ciprofloxacin/Dextrose 400 mg/ (Premix) 200 mls @ 200 mls/hr IV DAILY [facility] Last Admin: 07/26/17 07:44 Dose: 200 mls/hr Sodium Chloride (Normal Saline) 1,000 mls @ 0 mls/hr IV ASDIRECTED [facility] PRN Reason: KVO Last Admin: 07/24/17 19:10 Dose: 30 mls/hr Insulin Glargine (Lantus Solostar) 16 units SUBCUT BEDTIME [facility] Last Admin: 07/24/17 21:02 Dose: Not Given Insulin Glargine (Lantus Solostar) 26 units SUBCUT DAILY [facility] Last Admin: 07/25/17 08:49 Dose: 26 units Levothyroxine Sodium (Synthroid) 88 mcg PO ACBREAKFAST [facility] Last Admin: 07/25/17 07:57 Dose: 88 mcg Metformin HCl (Glucophage) 500 mg PO BIDM [facility] Last Admin: 07/25/17 11:52 Dose: Not Given Non-Formulary Medication (Apixaban) 2.5 mg PO DAILY [facility] Last Admin: 07/25/17 11:52 Dose: Not Given Non-Formulary Medication (Insulin Glarg,Human.Rec.Analog [Lantus]) 14 unit SQ BEDTIME [facility] Non-Formulary Medication (Insulin Glarg,Human.Rec.Analog [Lantus]) 24 units SQ DAILY [facility] Nystatin (Nystop) Confirm Administered Dose 15 gm .ROUTE .[employer] ONE Stop: 07/25/17 11:28 Last Admin: 07/25/17 11:32 Dose: 1 applic Omeprazole (Omeprazole) 40 mg PO DAILY [facility] Last Admin: 07/25/17 11:52 Dose: Not Given Pregabalin (Lyrica) 150 mg PO TID [facility] Last Admin: 07/25/17 11:52 Dose: Not Given Pregabalin (Lyrica) 150 mg PO TID [facility] Last Admin: 07/26/17 08:18 Dose: 150 mg Pregabalin (Lyrica) Confirm Administered Dose 150 mg .ROUTE .[employer] ONE Stop: 07/25/17 11:39 Last Admin: 07/25/17 11:50 Dose: Not Given Pregabalin (Lyrica) Confirm Administered Dose 150 mg .ROUTE [employer] ONE Stop: 07/25/17 17:32 Last Admin: 07/25/17 17:40 Dose: Not Given Pregabalin (Lyrica) Confirm Administered Dose 150 mg .ROUTE [employer] ONE Stop: 07/26/17 08:10 Last Admin: 07/26/17 08:21 Dose: Not Given Sertraline HCl (Zoloft) 100 mg PO DAILY [facility] Sertraline HCl (Zoloft) 150 mg PO DAILY [facility] Last Admin: 07/25/17 11:52 Dose: Not Given Simvastatin (Zocor) 20 mg PO BEDTIME [facility] Last Admin: 07/24/17 21:02 Dose: Not Given Tramadol HCl (Ultram) 50 mg PO BID PRN PRN Reason: Pain *Q Meaningful Use (DIS) - VTE *Q VTE Criteria *Q: - Stroke *Q Stroke Criteria *Q: - AMI *Q AMI Criteria *Q:
[2017-07-26] MEDS ORDERED: Warfarin 7.5 MG Tab PO SCH (18:00)
[2017-07-27] MEDS ORDERED: Furosemide 40 MG Tab PO SCH (08:00)
== END 2017-07-26 11:52 | DRG 948 ==
LOC: LB.ED 17:26 → UNDOADMOB 18:45 → LB.MS 18:45 → UNDOADMOB 19:00 → LB.MS 19:00 → OBSVTOIN 07-25 09:37
PROVIDERS: ADMIT Family Medicine; ATTEND Family Medicine
DX: R79.81 Abnormal blood-gas level (principal); I13.0 Hypertensive heart and chronic kidney disease with heart failure and stage 1 through stage 4 chronic kidney disease, or unspecified chronic kidney disease; N39.0 Urinary tract infection, site not specified; J44.9 Chronic obstructive pulmonary disease, unspecified; D72.829 Elevated white blood cell count, unspecified; R53.83 Other fatigue; E11.22 Type 2 diabetes mellitus with diabetic chronic kidney disease; N18.9 Chronic kidney disease, unspecified; E87.0 Hyperosmolality and hypernatremia; I10 Essential (primary) hypertension; M19.90 Unspecified osteoarthritis, unspecified site; Z79.899 Other long term (current) drug therapy; Z88.0 Allergy status to penicillin; Z88.8 Allergy status to other drugs, medicaments and biological substances; Z79.4 Long term (current) use of insulin; Z79.01 Long term (current) use of anticoagulants
CPT/HCPCS: 36415 ×2; 71045; 80053 ×2; 81001; 82962; 83880; 84443; 84484; 85025 ×2; 85379; 93005; 96365; 99285; A9270 ×3; J0744; J1940 ×2; J7040; 87086; 87088; 87186; J3490

== ENCOUNTER 2017-08-02 19:24 | Emergency (ER) | payer MEDICARE ==
[2017-08-02 20:59] VITALS: BP 143/74
[2017-08-02] MEDS ORDERED: Azithromycin 250 MG Tab ONE (21:00)
--- NOTE | 2017-08-02 21:05 | EDM.PDOC ---
ED HPI GENERAL MEDICAL PROBLEM - General Chief Complaint: General Stated Complaint: LOW 02 SATS Time Seen by Provider: 08/02/17 19:25 Source of Information: Reports: Other (Care center staff) - History of Present Illness INITIAL COMMENTS - FREE TEXT/NARRATIVE: i did get a call from care centre staff stating that patient SPO2 are in low 60s , and what to do? I have asked the Care center stafff to get thte patient down to emergency room. P is comfortable in the emergency room, her SO2 on 3litres of oxygen is around 94/95 %. Patient does c/o of cough and has upper air way conductive sounds. She is not in any respiratory distress. Pt has been seen for this on going cough by me today. When patient was evaluated today she has not been tacypnec and has been comfortable. It does appear like she has viral bronchitis with upper airway conductive sounds from upper airway secretions. As she does have some expiratory rhonchi, her albuterol nebs were changes to duonebs today. She has been on tessalon pearls. Pt has had cough for past4-5 days now with upper airway congestion with productive cough and her CBC has been normal. Onset: Today - Related Data Allergies Allergy/AdvReac Type Severity Reaction Status Date / Time aspirin Allergy Nausea and Verified 08/02/17 20:59 Vomiting Penicillins Allergy Rash Verified 08/02/17 20:59 Home Meds: Home Meds Acetaminophen [Tylenol Extra Strength] 1,000 mg PO 0700,1900 07/25/17 [History] Arginine/Glutamine/Calcium Hmb [Mingo Packet] 1 each PO DAILY 07/25/17 [History] Ascorbate Calcium [Vitamin C] 500 mg PO DAILY 07/25/17 [History] Ferrous Sulfate 325 mg PO 0700,1900 07/25/17 [History] Insulin Aspart [Novolog Flexpen] See Protocol SQ TIDMEALS 07/25/17 [History] Insulin Glarg,Human.Rec.Analog [Lantus Solostar] 26 unit SUBCUT 0800 07/25/17 [ History] L.acidoph,Paracasei, B.lactis [Probiotic] 1 each PO 1200 07/25/17 [History] Levothyroxine [Synthroid] 88 mcg PO ACBREAKFAST 07/25/17 [History] Liraglutide [Victoza] 1.2 mg SUBCUT DAILY 07/25/17 [History] Multivitamins [Childrens Chewable Vitamin] 1 tab PO DAILY 07/25/17 [History] Nystatin 1 applic TOP BID 07/25/17 [History] Omeprazole 40 mg PO DAILY 07/25/17 [History] Polyethylene Glycol 3350 [Miralax] 17 gm PO DAILY 07/25/17 [History] Potassium Chloride 20 meq PO DAILY 07/25/17 [History] Pregabalin [Lyrica] 150 mg PO 0700,1100,1900 07/25/17 [History] Sertraline HCl [Zoloft] 100 mg PO DAILY 07/25/17 [History] Simvastatin [Zocor] 20 mg PO BEDTIME 07/25/17 [History] Warfarin Sodium [Coumadin] 7.5 mg PO ASDIRECTED 07/25/17 [History] Warfarin [Coumadin] 5 mg PO ASDIRECTED 07/25/17 [History] Zinc Gluconate [Zinc] 50 mg PO DAILY 07/25/17 [History] traMADol [Ultram] 50 mg PO DAILY 07/25/17 [History] Acetaminophen [Tylenol Extra Strength] 1,000 mg PO BID tablet 07/26/17 [Rx] Ascorbic Acid [Vitamin C] 500 mg PO DAILY tablet 07/26/17 [Rx] Ciprofloxacin HCl [Cipro] 500 mg PO BID #6 tablet 07/26/17 [Rx] Ferrous Sulfate 325 mg PO BID tablet 07/26/17 [Rx] Furosemide [Lasix] 40 mg PO DAILY tablet 07/26/17 [Rx] Insulin Aspart [NovoLOG] 0 unit SUBCUT TID pen 07/26/17 [Rx] Insulin Glarg,Human.Rec.Analog [Lantus Solostar] 16 units SUBCUT QPM pen [Rx] Insulin Glarg,Human.Rec.Analog [Lantus Solostar] 26 units SUBCUT DAILY pen 05/03 [Rx] Levothyroxine [Synthroid] 88 mcg PO ACBREAKFAST tablet 07/26/17 [Rx] Non-Formulary Medication [NF Drug] 1.2 each SQ DAILY each 07/26/17 [Rx] Nystatin [Nystop] 1 gm TOP BID bottle 07/26/17 [Rx] Omeprazole 40 mg PO DAILY cap.cr 07/26/17 [Rx] Polyethylene Glycol 3350 [MiraLAX] 17 gm PO BEDTIME packet 07/26/17 [Rx] Potassium Chloride [Klor-Con M20] 20 meq PO DAILY tab.er 07/26/17 [Rx] Pregabalin [Lyrica] 150 mg PO TID cap 07/26/17 [Rx] Sertraline [Zoloft] 100 mg PO DAILY tablet 07/26/17 [Rx] Simvastatin [Zocor] 20 mg PO BEDTIME tablet 07/26/17 [Rx] Sodium Chloride 0.9% [Saline Flush] 10 ml FLUSH ASDIRECTED PRN syringe [Rx] Vits A and D/White Pet/Lanolin [A + D Ointment] 1 applic TOP DAILY 07/26/17 [Rx] Warfarin [Coumadin] 5 mg PO SuTuThSa@1800 tablet 07/26/17 [Rx] Warfarin [Coumadin] 7.5 mg PO MoWeFr@1800 tablet 07/26/17 [Rx] Zinc Gluconate [Zinc] 50 mg PO DAILY tablet 07/26/17 [Rx] traMADol [Ultram] 50 mg PO BID tablet 07/26/17 [Rx] Past Medical History HEENT History: Reports: Hard of Hearing, Impaired Vision Cardiovascular History: Reports: Heart Failure, Hypertension Respiratory History: Reports: COPD Gastrointestinal History: Reports: GERD Genitourinary History: Reports: Chronic Renal Insuffiency 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 OF THEOLOGY History: Reports: Musculoskeletal History: Reports: Arthritis Endocrine/Metabolic History: Reports: Diabetes, Type II Hematologic History: Reports: Blood Transfusion(s) Dermatologic History: Reports: Other (See Below) Other Dermatologic History: reddened area under breasts and abdominal fold - Infectious Disease History Infectious Disease History: Reports: Chicken Pox Social & Family History - Family History Family Medical History: Noncontributory - Tobacco Use Smoking Status *Q: Never Smoker Second Hand Smoke Exposure: No - Caffeine Use Caffeine Use: Reports: Coffee - Alcohol Use Days Per Week of Alcohol Use: 0 - Recreational Drug Use Recreational Drug Use: No - Living Situation & Occupation Living situation: Reports: , Extended Care Facility Occupation: Retired ED ROS GENERAL - Review of Systems Review Of Systems: See Below Constitutional: Denies: Fever, Chills, Malaise, Weakness HEENT: Reports: Sinus Problem. Denies: Ear Pain, Throat Pain, Throat Swelling Respiratory: Reports: Wheezing, Cough, Sputum. Denies: Shortness of Breath, Pleuritic Chest Pain Cardiovascular: Denies: Chest Pain, Lightheadedness GI/Abdominal: Denies: Abdominal Pain, Nausea, Vomiting : Denies: Urgency, Urinary Retention Musculoskeletal: Denies: Joint Pain, Joint Swelling ED EXAM, GENERAL - Physical Exam Exam: See Below Exam Limited By: No Limitations General Appearance: Alert, WD/WN, No Apparent Distress, Obese, Other (Pt is not tachypenc and she does breath around 16-18/minute) Eye Exam: Bilateral Eye: EOMI, PERRL Ears: Normal External Exam, Normal Canal, Hearing Grossly Normal, Normal TMs Ear Exam: Bilateral Ear: Auricle Normal, Canal Normal, TM normal Nose: Normal Inspection, Normal Mucosa, No Blood Throat/Mouth: Normal Inspection, Normal Lips, Normal Teeth, Normal Gums, Normal Oropharynx, Normal Voice, No Airway Compromise Head: Atraumatic, Normocephalic Neck: Normal Inspection, Supple, Non-Tender, Full Range of Motion Respiratory/Chest: No Respiratory Distress, Normal Breath Sounds, No Accessory Muscle Use, Decreased Breath Sounds (base), Other (There are secretion in the upper airway and conducted sounds heard all over the lung velez, but ther is good airentery to most of the anterio chest and posteriro uper back.) Cardiovascular: Normal Peripheral Pulses, Regular Rate, Rhythm GI/Abdominal: Normal Bowel Sounds, Soft Extremities: Pedal Edema (chronic) Course - Vital Signs Text/Narrative:: Pt was very stable in the exam room in the emergency room. Her SPO2 was around 94-98%, she does have coarse breath sounds from upper airway conducted sounds from oral and posterior pharyngeal secretions. Pt has not been in any respiratory distress ( no tacypnea, no change in skin color, no use of accessory muscles of respiration, warm skin) all through her emergency room visit. She is awake and responds appropriately. Her respiratory rate has been around 16-18 breaths/min. She has remained pink. Pt was taken down to radiology to have her CT chest done (as Chest xray cannot be done due to technical problems at radiology department)and she was on the tank oxygen, her sats dropped down into 60s after the scan when she was back to the emergency room. I did ask the care center INFORMATION RESOURCES DIRECTOR to evaluate patient She got her vitals And temp, she did not asses her respiratory rate or her skin color. The oxygen tubing was connected back to the wall mount and patients SPO2 improved into low90s and stayed around 90-94%. patient has remained stable all through the emergency room visit. I have been with patient all the time. there was no reparatory distress, she has had few bouts of cough and every time she clears the upper airway with cough her SPO2 improves. Pt's CT scan of the chest shows a possible right lower lobe infiltrate with questionable right upper lobe infiltrate. Her white count is normal at 10K. She has possible early pneumonia but not in respiratory distress. She has been started on ZPAK orally today in the emergency room. It was noted during transfer back to the [facility], that the oxygen tank was not even turned on, which probably was the cause of the desaturation on pulseox on initial evaluation., but patient has remained stable from respiratory stand point. Pt is a mouth breather, hence she has been discharged back to [facility] on nasal mask with non-rebreather, with which her SPO2 was stable above 90%.Pt needs aggressive pulmonary toileting, hence she has been on tessalon pearls orally, duonebs to open up the airway, also should do incentive spirometer exercise to help exaond the lungs and clear up the secretion and prevent her pneumonia from getting worse. Pt discahrged back to [facility] in stable condition. . - Orders/Labs/Meds Orders: Active Orders 24 hr Category Date Time Status Chest wo Cont [CT] Stat Exams 08/02/17 19:45 Taken Labs: Laboratory Tests 08/02/17 Range/Units 20:17 WBC 9.2 D (4.0-11.0) K/uL RBC 3.99 (3.80-5.80) M/uL Hgb 12.9 (11.5-16.5) g/dL Hct 42.8 (37.0-47.0) % MCV 107 H (76-96) fL MCH 32.3 H (27.0-32.0) pg MCHC 30.1 L (31.0-35.0) g/dL RDW 17.6 H (11.0-16.0) % Plt Count 130 L (150-500) K/uL MPV 11.0 H (6.0-10.0) fL Neut % (Auto) 79.8 H (45.0-70.0) % Lymph % (Auto) 11.7 L (20.0-40.0) % Bowman % (Auto) 8.0 (3.0-10.0) % Eos % (Auto) 0.4 L (1.0-5.0) % Baso % (Auto) 0.1 (0.0-0.5) % Neut # (Auto) 7.30 (2.00-7.50) K/uL Lymph # (Auto) 1.07 L (1.50-4.00) K/uL Bowman # (Auto) 0.73 (0.20-0.80) K/uL Eos # (Auto) 0.04 (0.04-0.40) K/uL Baso # (Auto) 0.01 L (0.02-0.10) K/uL Departure - Departure Time of Disposition: 21:00 Disposition: DC/Tfer to [facility] Condition: Fair Clinical Impression: Right lower lobe pneumonia - Discharge Information Instructions: Azithromycin tablets Referrals: PCP,None [Primary Care Provider] - Forms: ED Department Discharge Additional Instructions: Instruct the pt to cough and deep breath. Pt is a mouth breather, you can also put the nasal cannula in the pts mouth. Z-bharat will be started, complete the entire dose. Dr. Joyce will be over to see the pt in a couple days. Use an incentive spirometer also several times a day and push fluids. - Problem List & Annotations (1) Right lower lobe pneumonia SNOMED Code(s): 845668145 Code(s): J18.1 - LOBAR PNEUMONIA, UNSPECIFIED ORGANISM Status: Acute Current Visit: Yes - Problem List Review Problem List Initiated/Reviewed/Updated: Yes - My Orders Last 24 Hours: My Active Orders 08/02/17 19:45 Chest wo Cont [CT] Stat - Assessment/Plan Last 24 Hours: My Active Orders 08/02/17 19:45 Chest wo Cont [CT] Stat Assessment:: Right lower lobe pneumonia Plan: Pt was very stable in the exam room in the emergency room. Her SPO2 was around 94-98%, she does have coarse breath sounds from upper airway conducted sounds from oral and posterior pharyngeal secretions. Pt has not been in any respiratory distress ( no tacypnea, no change in skin color, no use of accessory muscles of respiration, warm skin) all through her emergency room visit. She is awake and responds appropriately. Her respiratory rate has been around 16-18 breaths/min. She has remained pink. Pt was taken down to radiology to have her CT chest done (as Chest xray cannot be done due to technical problems at radiology department)and she was on the tank oxygen, her sats dropped down into 60s after the scan when she was back to the emergency room. I did ask the [facility] INFORMATION RESOURCES DIRECTOR to evaluate patient She got her vitals And temp, she did not asses her respiratory rate or her skin color. The oxygen tubing was connected back to the wall mount and patients SPO2 improved into low90s and stayed around 90-94%. patient has remained stable all through the emergency room visit. I have been with patient all the time. there was no reparatory distress, she has had few bouts of cough and every time she clears the upper airway with cough her SPO2 improves. Pt's CT scan of the chest shows a possible right lower lobe infiltrate with questionable right upper lobe infiltrate. Her white count is normal at 10K. She has possible early pneumonia but not in respiratory distress. She has been started on ZPAK orally today in the emergency room. It was noted during transfer back to the [facility], that the oxygen tank was not even turned on, which probably was the cause of the desaturation on pulseox on initial evaluation., but patient has remained stable from respiratory stand point. Pt is a mouth breather, hence she has been discharged back to [facility] on nasal mask with non-rebreather, with which her SPO2 was stable above 90%.Pt needs aggressive pulmonary toileting, hence she has been on tessalon pearls orally, duonebs to open up the airway, also should do incentive spirometer exercise to help exaond the lungs and clear up the secretion and prevent her pneumonia from getting worse. Pt discahrged back to [facility] in stable condition.
--- NOTE | 2017-08-03 08:47 | CT ---
DATE OF SERVICE: 08/02/17 CLINICAL DATA: hypoxia UNENHANCED CHEST CT: Multislice acquisition through the chest without IV contrast was performed. Comparison is made to a prior exam dated 04/27/16. There is significant breathing motion artifact that significantly degrades image quality. There are atelectatic changes in the dependent portion of both lungs. There is a patchy infiltrate in the right perihilar region and there is infiltrate and consolidation in the right lower lobe posteriorly. Pneumonia is suspected. No pleural effusions. No pneumothorax. The heart is enlarged. There are coronary artery calcifications. No pericardial effusion. No adenopathy. The exam is otherwise unchanged from the prior. IMPRESSION: Infiltrate and consolidation in the right lower lobe and patchy infiltrate in the right perihilar region suspicious for pneumonia. Followup chest x-ray is recommended to confirm resolution. [id number] MTDD
== END 2017-08-02 21:00 ==
LOC: LB.ED 19:24
DX: J18.9 Pneumonia, unspecified organism (principal); I12.9 Hypertensive chronic kidney disease with stage 1 through stage 4 chronic kidney disease, or unspecified chronic kidney disease; N18.5 Chronic kidney disease, stage 5; I50.9 Heart failure, unspecified; E11.22 Type 2 diabetes mellitus with diabetic chronic kidney disease; J44.9 Chronic obstructive pulmonary disease, unspecified; Z79.4 Long term (current) use of insulin; Z79.01 Long term (current) use of anticoagulants; Z79.899 Other long term (current) drug therapy; Z88.6 Allergy status to analgesic agent; Z88.1 Allergy status to other antibiotic agents; I25.10 Atherosclerotic heart disease of native coronary artery without angina pectoris; I51.7 Cardiomegaly
CPT/HCPCS: 36415; 71250; 85025; 93306; 99284; 99285; A9270

== ENCOUNTER 2017-08-03 09:48 | Inpatient (IN) | payer MEDICARE ==
[2017-08-03] MEDS: Albuterol/Ipratropium 3.0-0.5 MG/3 ML Neb Soln INH SCH ×3 (11:30→22:56)
--- NOTE | 2017-08-03 11:49 | EDM.PDOC ---
ED HPI GENERAL MEDICAL PROBLEM - General Chief Complaint: General Stated Complaint: FEVER Time Seen by Provider: 08/03/17 10:30 Source of Information: Reports: Penitentiary Records, Other History Limitations: Reports: Altered Mental Status - History of Present Illness INITIAL COMMENTS - FREE TEXT/NARRATIVE: This is a 77yo F brought to the ER due to decreasing oxygen saturation. Patient lives in the Care center and has been evaluated multiple times by her PCP and also again multiple times yesterday and in the ER with CT and labs. She was discharged yesterday back to the care center. The care center report new changes to status of the patient with fever and recurrent desaturation to the 70 's and decreased responsiveness. Patient does awake to questions and answers appropriately but appears fatigued. Patient denies any pain, denies any shortness of breath, denies any concerns at this time but does fall back asleep after questions. Onset: Gradual Duration: Day(s):, Constant, Getting Worse Location: Reports: Generalized Improves with: Reports: None Worsens with: Reports: None Associated Symptoms: Reports: Weakness - Related Data Allergies Allergy/AdvReac Type Severity Reaction Status Date / Time aspirin Allergy Nausea and Verified 08/02/17 20:59 Vomiting Penicillins Allergy Rash Verified 08/02/17 20:59 Home Meds: Home Meds Arginine/Glutamine/Calcium Hmb [Mingo Packet] 1 each PO DAILY 07/25/17 [History] Insulin Aspart [Novolog Flexpen] See Protocol SQ TIDMEALS 07/25/17 [History] L.acidoph,Paracasei, B.lactis [Probiotic] 1 each PO 1200 07/25/17 [History] Liraglutide [Victoza] 1.2 mg SUBCUT DAILY 07/25/17 [History] Multivitamins [Childrens Chewable Vitamin] 1 tab PO DAILY 07/25/17 [History] Warfarin Sodium [Coumadin] 7.5 mg PO MOWEFR@1800 07/25/17 [History] Acetaminophen [Tylenol Extra Strength] 1,000 mg PO BID tablet 07/26/17 [Rx] Ascorbic Acid [Vitamin C] 500 mg PO DAILY tablet 07/26/17 [Rx] Ferrous Sulfate 325 mg PO BID tablet 07/26/17 [Rx] Furosemide [Lasix] 40 mg PO DAILY tablet 07/26/17 [Rx] Insulin Glarg,Human.Rec.Analog [Lantus Solostar] 16 units SUBCUT QPM pen [Rx] Insulin Glarg,Human.Rec.Analog [Lantus Solostar] 26 units SUBCUT DAILY pen 05/03 [Rx] Levothyroxine [Synthroid] 88 mcg PO ACBREAKFAST tablet 07/26/17 [Rx] Nystatin [Nystop] 1 gm TOP BID bottle 07/26/17 [Rx] Polyethylene Glycol 3350 [MiraLAX] 17 gm PO BEDTIME packet 07/26/17 [Rx] Potassium Chloride [Klor-Con M20] 20 meq PO DAILY tab.er 07/26/17 [Rx] Pregabalin [Lyrica] 150 mg PO TID cap 07/26/17 [Rx] Sertraline [Zoloft] 100 mg PO DAILY tablet 07/26/17 [Rx] Simvastatin [Zocor] 20 mg PO BEDTIME tablet 07/26/17 [Rx] Warfarin [Coumadin] 5 mg PO SuTuThSa@1800 tablet 07/26/17 [Rx] Zinc Gluconate [Zinc] 50 mg PO DAILY tablet 07/26/17 [Rx] traMADol [Ultram] 50 mg PO BID tablet 07/26/17 [Rx] Albuterol/Ipratropium [DuoNeb 3.0-0.5 MG/3 ML] 3 ml INH Q6H 08/03/17 [History] Azithromycin [IJP: Azithromycin] 250 mg PO QPM 08/03/17 [History] Omeprazole 40 mg PO ACBREAKFAST 08/03/17 [History] Past Medical History HEENT History: Reports: Hard of Hearing, Impaired Vision Cardiovascular History: Reports: Blood Clots/VTE/DVT, Heart Failure, Hypertension, Pulmonary Hypertension Respiratory History: Reports: COPD, SOB Gastrointestinal History: Reports: GERD Genitourinary History: Reports: Chronic Renal Insuffiency 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: Musculoskeletal History: Reports: Arthritis, Osteoarthritis Psychiatric History: Reports: Depression Endocrine/Metabolic History: Reports: Diabetes, Type II, Hypothyroidism, Obesity /BMI 30+ Hematologic History: Reports: Blood Transfusion(s) Dermatologic History: Reports: Decubitus Ulcer, Eczema, Other (See Below) Other Dermatologic History: reddened area under breasts and abdominal fold - Infectious Disease History Infectious Disease History: Reports: Chicken Pox Social & Family History - Family History Family Medical History: Noncontributory - Tobacco Use Smoking Status *Q: Never Smoker Second Hand Smoke Exposure: No - Caffeine Use Caffeine Use: Reports: Coffee - Alcohol Use Days Per Week of Alcohol Use: 0 - Recreational Drug Use Recreational Drug Use: No - Living Situation & Occupation Living situation: Reports: , Extended Care Facility Occupation: Retired ED ROS GENERAL - Review of Systems Review Of Systems: ROS reveals no pertinent complaints other than HPI. ED EXAM, GENERAL - Physical Exam Exam: See Below Exam Limited By: Altered Mental Status General Appearance: WD/WN, No Apparent Distress, Obtunded, Obese Eye Exam: Bilateral Eye: EOMI, PERRL Ears: Normal External Exam Nose: Normal Inspection Throat/Mouth: Normal Inspection Head: Atraumatic, Normocephalic Neck: Normal Inspection Respiratory/Chest: No Accessory Muscle Use, Crackles, Rales Cardiovascular: Normal Peripheral Pulses, Regular Rate, Rhythm Peripheral Pulses: 2+: Dorsalis Pedis (L), Dorsalis Pedis (R) GI/Abdominal: Normal Bowel Sounds Back Exam: Normal Inspection Extremities: Other (edema - difficult to assess due to obesity and habitus) Neurological: Inattentive, Slow to Respond Psychiatric: Flat Affect Skin Exam: Warm, Dry, Intact Course - Vital Signs Last Recorded V/S: Last Vital Signs Temp 37.1 C 08/03/17 11:35 Pulse 93 08/03/17 11:35 Resp 18 08/03/17 11:35 BP 101/69 08/03/17 11:35 Pulse Ox 94 L 08/03/17 11:35 - Orders/Labs/Meds Orders: Active Orders 24 hr Category Date Time Status Patient Status [ADT] Routine ADT 08/03/17 11:37 Ordered Height and Weight [RC] DAILY Care 08/03/17 11:37 Ordered Intake and Output [RC] QSHIFT Care 08/03/17 11:38 Ordered Oxygen Therapy [RC] PRN Care 08/03/17 11:37 Ordered Up With Assistance [RC] ASDIRECTED Care 08/03/17 11:37 Ordered Vital Signs [RC] Q4H Care 08/03/17 11:37 Ordered Nothing per Oral Now Diet [DIET] Diet 08/03/17 Dinner Ordered CULTURE BLOOD [BC] Stat Lab 08/03/17 10:15 Received CULTURE BLOOD [BC] Stat Lab 08/03/17 11:20 Received CULTURE URINE [RM] Stat Lab 08/03/17 10:50 Received Acetaminophen [Tylenol Extra Strength] Med 08/03/17 20:00 Ordered 1,000 mg PO BID Albuterol/Ipratropium [DuoNeb 3.0-0.5 MG/3 ML] Med 08/03/17 11:45 Ordered 3 ml INH Q6H Arginine/Glutamine/Calcium Hmb [Mingo Packet] Med 08/04/17 08:00 Ordered 1 each PO DAILY Ascorbic Acid [Vitamin C] Med 08/04/17 08:00 Ordered 500 mg PO DAILY Azithromycin [Zithromax] Med 08/03/17 20:00 Ordered 250 mg PO QPM Ferrous Sulfate Med 08/03/17 20:00 Ordered 325 mg PO BID Furosemide [Lasix] Med 08/04/17 08:00 Ordered 40 mg PO DAILY L.acidoph,Paracasei, B.lactis [Probiotic] Med 08/03/17 12:00 Ordered 1 each PO 1200 Levothyroxine [Synthroid] Med 08/04/17 07:00 Ordered 88 mcg PO ACBREAKFAST Multivitamins [Childrens Chewable Vitamin] Med 08/04/17 08:00 Ordered 1 tab PO DAILY Omeprazole Med 08/04/17 07:00 Ordered 40 mg PO ACBREAKFAST Potassium Chloride [Klor-Con M20] Med 08/04/17 08:00 Ordered 20 meq PO DAILY Warfarin [Coumadin] Med 08/03/17 18:00 Ordered 5 mg PO SuTuThSa@1800 Warfarin [Coumadin] Med 08/04/17 18:00 Ordered 7.5 mg PO MOWEFR@1800 Zinc Gluconate [Zinc] Med 08/04/17 08:00 Ordered 50 mg PO DAILY Resuscitation Status Routine Resus Stat 08/03/17 11:37 Ordered Medication Orders Acetaminophen (Tylenol Extra Strength) 1,000 mg PO BID [facility] Albuterol/Ipratropium (Duoneb 3.0-0.5 Mg/3 Ml) 3 ml INH Q6H [facility] Ascorbic Acid (Vitamin C) 500 mg PO DAILY [facility] Azithromycin (Zithromax) 250 mg PO QPM [facility] Ferrous Sulfate (Ferrous Sulfate) 325 mg PO BID [facility] Furosemide (Lasix) 40 mg PO DAILY [facility] Levothyroxine Sodium (Synthroid) 88 mcg PO ACBREAKFAST [facility] Multivitamins/Minerals/Vitamin C (Childrens Chewable Vitamin) 1 tab PO DAILY [facility] Non-Formulary Medication (Arginine/Glutamine/Calcium Hmb [Mingo Packet]) 1 each PO DAILY [facility] Non-Formulary Medication (L.Acidoph,Paracasei, B.Lactis [Probiotic]) 1 each PO 1200 [facility] Omeprazole (Omeprazole) 40 mg PO ACBREAKFAST [facility] Potassium Chloride (Klor-Con M20) 20 meq PO DAILY [facility] Warfarin Sodium (Coumadin) 5 mg PO SuTuThSa@1800 [facility] Warfarin Sodium (Coumadin) 7.5 mg PO MOWEFR@1800 [facility] Zinc Gluconate (Zinc) 50 mg PO DAILY [facility] Labs: Laboratory Tests 08/03/17 08/03/17 08/03/17 Range/Units 10:15 10:15 10:15 WBC 7.2 D (4.0-11.0) K/uL RBC 3.79 L (3.80-5.80) M/uL Hgb 12.3 (11.5-16.5) g/dL Hct 40.8 (37.0-47.0) % MCV 108 H (76-96) fL MCH 32.5 H (27.0-32.0) pg MCHC 30.1 L (31.0-35.0) g/dL RDW 17.5 H (11.0-16.0) % Plt Count 136 L (150-500) K/uL MPV 10.9 H (6.0-10.0) fL Neut % (Auto) 77.2 H (45.0-70.0) % Lymph % (Auto) 14.3 L (20.0-40.0) % Dare % (Auto) 8.3 (3.0-10.0) % Eos % (Auto) 0.1 L (1.0-5.0) % Baso % (Auto) 0.1 (0.0-0.5) % Neut # (Auto) 5.54 (2.00-7.50) K/uL Lymph # (Auto) 1.03 L (1.50-4.00) K/uL Dare # (Auto) 0.60 (0.20-0.80) K/uL Eos # (Auto) 0.01 L (0.04-0.40) K/uL Baso # (Auto) 0.01 L (0.02-0.10) K/uL Sodium 148 H (136-145) mmol/L Potassium 4.0 (3.5-5.1) mmol/L Chloride 105 (98-107) mmol/L Carbon Dioxide 41.2 H (21.0-32.0) mmol/L Anion Gap 5.8 (5.0-15.0) mmol/L BUN 31 H (8-26) mg/dL Creatinine 1.51 H (0.55-1.02) mg/dL Est Cr Clr Drug Dosing TNP Estimated GFR (MDRD) 33 L (>60) MLS/MIN BUN/Creatinine Ratio 20.5 (6-25) Glucose 120 H D (74-100) mg/dL Calcium 8.7 (8.5-10.1) mg/dL Total Bilirubin 0.3 (0.0-1.0) mg/dL AST 19 (15-37) U/L ALT 14 (12-78) U/L Alkaline Phosphatase 61 (46-116) U/L B-Natriuretic Peptide 8974 H (0-450) pg/mL Total Protein 7.1 (6.4-8.2) g/dL Albumin 2.5 L (3.4-5.0) g/dL Globulin 4.6 H (2.2-4.2) g/dL Albumin/Globulin Ratio 0.5 L (0.8-2.0) TSH, Ultra Sensitive 0.889 D (0.358-3.740) uIU/mL Urine Color Urine Appearance (CLEAR) Urine pH (5.0-8.0) Ur Specific [place] (1.003-1.030) Urine Protein (NEGATIVE) mg/dL Urine Glucose (UA) (NEGATIVE) mg/dL Urine Ketones (NEGATIVE) mg/dL Urine Occult Blood (NEGATIVE) Urine Nitrite (NEGATIVE) Urine Bilirubin (NEGATIVE) Urine Urobilinogen (0.2-1.0) E.U./dL Ur Leukocyte Esterase (NEGATIVE) Urine RBC /HPF Urine WBC /HPF Ur Squamous Epith Cells /HPF Urine Bacteria /HPF 08/03/17 Range/Units 10:50 WBC (4.0-11.0) K/uL RBC (3.80-5.80) M/uL Hgb (11.5-16.5) g/dL Hct (37.0-47.0) % MCV (76-96) fL MCH (27.0-32.0) pg MCHC (31.0-35.0) g/dL RDW (11.0-16.0) % Plt Count (150-500) K/uL MPV (6.0-10.0) fL Neut % (Auto) (45.0-70.0) % Lymph % (Auto) (20.0-40.0) % Dare % (Auto) (3.0-10.0) % Eos % (Auto) (1.0-5.0) % Baso % (Auto) (0.0-0.5) % Neut # (Auto) (2.00-7.50) K/uL Lymph # (Auto) (1.50-4.00) K/uL Dare # (Auto) (0.20-0.80) K/uL Eos # (Auto) (0.04-0.40) K/uL Baso # (Auto) (0.02-0.10) K/uL Sodium (136-145) mmol/L Potassium (3.5-5.1) mmol/L Chloride (98-107) mmol/L Carbon Dioxide (21.0-32.0) mmol/L Anion Gap (5.0-15.0) mmol/L BUN (8-26) mg/dL Creatinine (0.55-1.02) mg/dL Est Cr Clr Drug Dosing Estimated GFR (MDRD) (>60) MLS/MIN BUN/Creatinine Ratio (6-25) Glucose (74-100) mg/dL Calcium (8.5-10.1) mg/dL Total Bilirubin (0.0-1.0) mg/dL AST (15-37) U/L ALT (12-78) U/L Alkaline Phosphatase (46-116) U/L B-Natriuretic Peptide (0-450) pg/mL Total Protein (6.4-8.2) g/dL Albumin (3.4-5.0) g/dL Globulin (2.2-4.2) g/dL Albumin/Globulin Ratio (0.8-2.0) TSH, Ultra Sensitive (0.358-3.740) uIU/mL Urine Color Yellow Urine Appearance Clear (CLEAR) Urine pH 5.0 (5.0-8.0) Ur Specific [place] 1.015 (1.003-1.030) Urine Protein Negative (NEGATIVE) mg/dL Urine Glucose (UA) Negative (NEGATIVE) mg/dL Urine Ketones Negative (NEGATIVE) mg/dL Urine Occult Blood Trace-lysed H (NEGATIVE) Urine Nitrite Negative (NEGATIVE) Urine Bilirubin Negative (NEGATIVE) Urine Urobilinogen 0.2 (0.2-1.0) E.U./dL Ur Leukocyte Esterase Negative (NEGATIVE) Urine RBC 0-5 H /HPF Urine WBC Not seen /HPF Ur Squamous Epith Cells Occasional /HPF Urine Bacteria Not seen /HPF Meds: Medications Generic Name Dose Route Start Last Admin Trade Name Freq PRN Reason Stop Dose Admin Acetaminophen 1,000 mg 08/03/17 20:00 Tylenol Extra Strength PO BID [facility] Albuterol/Ipratropium 3 ml 08/03/17 11:45 Duoneb 3.0-0.5 Mg/3 Ml INH Q6H [facility] Ascorbic Acid 500 mg 08/04/17 08:00 Vitamin C PO DAILY [facility] Azithromycin 250 mg 08/03/17 20:00 Zithromax PO QPM [facility] Ferrous Sulfate 325 mg 08/03/17 20:00 Ferrous Sulfate PO BID [facility] Furosemide 40 mg 08/04/17 08:00 Lasix PO DAILY [facility] Levothyroxine Sodium 88 mcg 08/04/17 07:00 Synthroid PO ACBREAKFAST [facility] Multivitamins/Minerals/Vitamin C 1 tab 08/04/17 08:00 Childrens Chewable Vitamin PO DAILY [facility] Non-Formulary Medication 1 each 08/04/17 08:00 Arginine/Glutamine/Calcium Hmb [Mingo Packet] PO DAILY [facility] Non-Formulary Medication 1 each 08/03/17 12:00 L.Acidoph,Paracasei, B.Lactis [Probiotic] PO 1200 [facility] Omeprazole 40 mg 08/04/17 07:00 Omeprazole PO ACBREAKFAST [facility] Potassium Chloride 20 meq 08/04/17 08:00 Klor-Con M20 PO DAILY [facility] Warfarin Sodium 5 mg 08/03/17 18:00 Coumadin PO SuTuThSa@1800 [facility] Warfarin Sodium 7.5 mg 08/04/17 18:00 Coumadin PO MOWEFR@1800 [facility] Zinc Gluconate 50 mg 08/04/17 08:00 Zinc PO DAILY [facility] Departure - Departure Time of Disposition: 12:01 Disposition: Refer to Observation Condition: Fair Clinical Impression: Low oxygen saturation, Diabetes mellitus type 2, snf resident, HTN, Benign hypertension, Renal dysfunction, Hypernatremia Right lower lobe pneumonia Qualifiers: Pneumonia type: due to unspecified organism Qualified Code(s): J18.1 - Lobar pneumonia, unspecified organism Fever Qualifiers: Fever type: unspecified Qualified Code(s): R50.9 - Fever, unspecified Altered mental state Qualifiers: Altered mental status type: somnolence Qualified Code(s): R40.0 - Somnolence - Discharge Information - Problem List & Annotations (1) Palliative care patient SNOMED Code(s): 097576851 Code(s): Z51.5 - ENCOUNTER FOR PALLIATIVE CARE Status: Acute Current Visit: Yes - Problem List Review Problem List Initiated/Reviewed/Updated: Yes - My Orders Last 24 Hours: My Active Orders 08/03/17 10:15 CULTURE BLOOD [BC] Stat 08/03/17 10:50 CULTURE URINE [RM] Stat 08/03/17 11:20 CULTURE BLOOD [BC] Stat 08/03/17 11:37 Patient Status [ADT] Routine Height and Weight [RC] DAILY Oxygen Therapy [RC] PRN Up With Assistance [RC] ASDIRECTED Vital Signs [RC] Q4H Resuscitation Status Routine 08/03/17 11:38 Intake and Output [RC] QSHIFT 08/03/17 11:45 Albuterol/Ipratropium [DuoNeb 3.0-0.5 MG/3 ML] 3 ml INH Q6H 08/03/17 12:00 L.acidoph,Paracasei, B.lactis [Probiotic] 1 each PO 1200 08/03/17 18:00 Warfarin [Coumadin] 5 mg PO SuTuThSa@1800 08/03/17 20:00 Acetaminophen [Tylenol Extra Strength] 1,000 mg PO BID Azithromycin [Zithromax] 250 mg PO QPM Ferrous Sulfate 325 mg PO BID 08/03/17 Dinner Nothing per Oral Now Diet [DIET] 08/04/17 07:00 Levothyroxine [Synthroid] 88 mcg PO ACBREAKFAST Omeprazole 40 mg PO ACBREAKFAST 08/04/17 08:00 Arginine/Glutamine/Calcium Hmb [Mingo Packet] 1 each PO DAILY Ascorbic Acid [Vitamin C] 500 mg PO DAILY Furosemide [Lasix] 40 mg PO DAILY Multivitamins [Childrens Chewable Vitamin] 1 tab PO DAILY Potassium Chloride [Klor-Con M20] 20 meq PO DAILY Zinc Gluconate [Zinc] 50 mg PO DAILY 08/04/17 18:00 Warfarin [Coumadin] 7.5 mg PO MOWEFR@1800 - Assessment/Plan Last 24 Hours: My Active Orders 08/03/17 10:15 CULTURE BLOOD [BC] Stat 08/03/17 10:50 CULTURE URINE [RM] Stat 08/03/17 11:20 CULTURE BLOOD [BC] Stat 08/03/17 11:37 Patient Status [ADT] Routine Height and Weight [RC] DAILY Oxygen Therapy [RC] PRN Up With Assistance [RC] ASDIRECTED Vital Signs [RC] Q4H Resuscitation Status Routine 08/03/17 11:38 Intake and Output [RC] QSHIFT 08/03/17 11:45 Albuterol/Ipratropium [DuoNeb 3.0-0.5 MG/3 ML] 3 ml INH Q6H 08/03/17 12:00 L.acidoph,Paracasei, B.lactis [Probiotic] 1 each PO 1200 08/03/17 18:00 Warfarin [Coumadin] 5 mg PO SuTuThSa@1800 08/03/17 20:00 Acetaminophen [Tylenol Extra Strength] 1,000 mg PO BID Azithromycin [Zithromax] 250 mg PO QPM Ferrous Sulfate 325 mg PO BID 08/03/17 Dinner Nothing per Oral Now Diet [DIET] 08/04/17 07:00 Levothyroxine [Synthroid] 88 mcg PO ACBREAKFAST Omeprazole 40 mg PO ACBREAKFAST 08/04/17 08:00 Arginine/Glutamine/Calcium Hmb [Mingo Packet] 1 each PO DAILY Ascorbic Acid [Vitamin C] 500 mg PO DAILY Furosemide [Lasix] 40 mg PO DAILY Multivitamins [Childrens Chewable Vitamin] 1 tab PO DAILY Potassium Chloride [Klor-Con M20] 20 meq PO DAILY Zinc Gluconate [Zinc] 50 mg PO DAILY 08/04/17 18:00 Warfarin [Coumadin] 7.5 mg PO MOWEFR@1800 Plan: Hypernatremia - This appears chronic and did not affect mental state. We will start with 1/2 NS and recheck Na levels. Altered mental state - This appears due to her recent hypoxic episodes and improved with oxygenation. The concern is that her pneumonia may be getting worse causing worsening hypoxia but we are able to use a non-rebreather at 5L and maintain at 92-94% consistently. She uses a nasal canula at the care center and patient breathes through her mouth all the time. Pneumonia - We will monitor fever, WBC and symptoms - so far this appears to be stable and we will continue with IV antibiotics only as patient is not as responsive and may not swallow her pills. There is the possibility of changing her to an admit for pneumonia if signs develop of sepsis or worsening symptoms. Hypoxia - resolved with non-rebreather mask use. Her symptoms may be more body habitus and positional as well as a mouth breather. Palliative care - patient is DNR/DNI but per he would like her to continue with ER visits and admits as needed if she continues with her hypoxic episodes. Patient NPO for now and we will continue meds IV as much as possible. Repeat labs in AM. Will sign out to application lead provider.
[2017-08-03] MEDS ORDERED: Sodium Chloride 0.9% 10 ML Syringe FLUSH PRN (11:58)
[2017-08-03] MEDS: Furosemide 40 MG/4 ML VIAL IVPUSH SCH (13:17)
[2017-08-03] MEDS: Sodium Chloride 0.45% 1,000 ML IV SCH ×2 (13:25→22:52)
[2017-08-03] MEDS: cefTRIAXone 1 GM in Sodium Chloride 0.9% 50 ML IV SCH (13:32)
[2017-08-03] MEDS: Non-Formulary Medication 1 Each (L.Acidoph,Paracasei, B.Lactis [Probiotic] 1 EACH) PO SCH (13:34)
[2017-08-03] MEDS: Azithromycin 500 MG in Sodium Chloride 0.9% 250 ML IV SCH (13:49)
[2017-08-03] MEDS: Warfarin 5 MG Tab PO SCH (17:22)
[2017-08-03] MEDS: Enoxaparin 80 MG/0.8 ML Syringe SUBCUT SCH (17:54)
[2017-08-03] MEDS ORDERED: Azithromycin 250 MG Tab PO SCH (20:00)
[2017-08-03] MEDS: Ferrous Sulfate 325 MG Tab PO SCH (21:42)
[2017-08-03] MEDS: Acetaminophen 500 MG Tab PO SCH (21:43)
[2017-08-04] MEDS: Albuterol/Ipratropium 3.0-0.5 MG/3 ML Neb Soln INH SCH ×5 (07:08→23:25)
[2017-08-04] MEDS: Levothyroxine 88 MCG Tab PO SCH ×2 (07:08→10:30)
[2017-08-04] MEDS: Omeprazole 40 MG Cap.CR PO SCH ×2 (07:08→10:31)
[2017-08-04] MEDS: Enoxaparin 80 MG/0.8 ML Syringe SUBCUT SCH (07:47)
[2017-08-04] MEDS: Furosemide 40 MG/4 ML VIAL IVPUSH SCH (07:47)
[2017-08-04] MEDS ORDERED: Furosemide 40 MG Tab PO SCH (08:00)
[2017-08-04] MEDS: CALCIUM HMB PO SCH (08:04)
[2017-08-04] MEDS: GLUTAMINE PO SCH (08:04)
[2017-08-04] MEDS: ARGININE PO SCH (08:04)
[2017-08-04] MEDS: Potassium Chloride 20 MEQ Tab.ER PO SCH ×2 (08:04→10:29)
[2017-08-04] MEDS: Ferrous Sulfate 325 MG Tab PO SCH ×3 (08:04→20:38)
[2017-08-04] MEDS: Multivitamin, Childrens Tab.Chew PO SCH (08:04)
[2017-08-04] MEDS: Zinc (Zinc Gluconate) 50 MG Tab PO SCH ×2 (08:05→10:31)
[2017-08-04] MEDS: Acetaminophen 500 MG Tab PO SCH ×3 (08:05→20:38)
[2017-08-04] MEDS: Insulin Aspart 100 Units/ML 3 ML Pen SUBCUT SCH ×3 (09:44→18:24)
[2017-08-04] MEDS: Ascorbic Acid 500 MG Tab PO SCH (10:28)
--- NOTE | 2017-08-04 11:12 | PCM.PN ---
- General Info Date of Service: 08/04/17 Subjective Update: Pt is awake and alert, she does speak in good sentences. She has no appetite. Has been coughing. No fever or chills. No vomiting or nausea. Has remained afebrile today. Functional Status: Reports: Urinating. Denies: New Symptoms - Review of Systems General: Reports: Weakness, Malaise. Denies: Fever, Chills HEENT: Reports: Sinus Congestion. Denies: Rhinitis Pulmonary: Reports: Cough, Sputum, Wheezing. Denies: Shortness of Breath, Pleuritic Chest Pain, Hemoptysis Cardiovascular: Denies: Chest Pain, Palpitations Gastrointestinal: Denies: Abdominal Pain, Nausea, Vomiting Genitourinary: Denies: Frequency, Burning Musculoskeletal: Denies: Joint Pain, Joint Swelling Skin: Denies: Cyanosis, Pallor Neurological: Denies: Confusion, Headache, Numbness - Patient Data Vitals - Most Recent: Last Vital Signs Temp 98.2 F 08/04/17 08:24 Pulse 80 08/04/17 08:24 Resp 20 08/04/17 08:24 BP 119/69 08/04/17 08:24 Pulse Ox 93 L 08/04/17 06:06 Weight - Most Recent: 155.491 kg I&O - Last 24 Hours: Intake & Output 08/03/17 08/04/17 08/04/17 22:59 06:59 14:59 Intake Total 648 900 Output Total 2125 750 Balance -1477 150 Lab Results Last 24 Hours: Laboratory Results - last 24 hr 08/03/17 08/04/17 08/04/17 Range/Units 17:01 07:25 07:25 WBC 5.7 D (4.0-11.0) K/uL RBC 3.80 (3.80-5.80) M/uL Hgb 12.2 (11.5-16.5) g/dL Hct 40.4 (37.0-47.0) % MCV 106 H (76-96) fL MCH 32.1 H (27.0-32.0) pg MCHC 30.2 L (31.0-35.0) g/dL RDW 16.9 H (11.0-16.0) % Plt Count 128 L (150-500) K/uL MPV 11.2 H (6.0-10.0) fL Neut % (Auto) 74.8 H (45.0-70.0) % Lymph % (Auto) 16.3 L (20.0-40.0) % [place] % (Auto) 8.4 (3.0-10.0) % Eos % (Auto) 0.3 L (1.0-5.0) % Baso % (Auto) 0.2 (0.0-0.5) % Neut # (Auto) 4.28 (2.00-7.50) K/uL Lymph # (Auto) 0.93 L (1.50-4.00) K/uL [place] # (Auto) 0.48 (0.20-0.80) K/uL Eos # (Auto) 0.02 L (0.04-0.40) K/uL Baso # (Auto) 0.01 L (0.02-0.10) K/uL Sodium 149 H (136-145) mmol/L Potassium 3.7 (3.5-5.1) mmol/L Chloride 105 (98-107) mmol/L Carbon Dioxide 41.7 H (21.0-32.0) mmol/L Anion Gap 6.0 (5.0-15.0) mmol/L BUN 25 (8-26) mg/dL Creatinine 1.33 H (0.55-1.02) mg/dL Est Cr Clr Drug Dosing 31.88 mL/min Estimated GFR (MDRD) 39 L (>60) MLS/MIN BUN/Creatinine Ratio 18.8 (6-25) Glucose 153 H (74-100) mg/dL POC Glucose 124 H (74-110) mg/dL Calcium 8.6 (8.5-10.1) mg/dL Total Bilirubin 0.4 D (0.0-1.0) mg/dL AST 21 (15-37) U/L ALT 12 (12-78) U/L Alkaline Phosphatase 59 (46-116) U/L Total Protein 6.9 (6.4-8.2) g/dL Albumin 2.3 L (3.4-5.0) g/dL Globulin 4.6 H (2.2-4.2) g/dL Albumin/Globulin Ratio 0.5 L (0.8-2.0) Med Orders - Current: Current Medications Acetaminophen (Tylenol Extra Strength) 1,000 mg PO BID [facility] Last Admin: 08/04/17 10:33 Dose: 1,000 mg Albuterol/Ipratropium (Duoneb 3.0-0.5 Mg/3 Ml) 3 ml INH Q6H [facility] Last Admin: 08/04/17 07:28 Dose: 3 ml Ascorbic Acid (Vitamin C) 500 mg PO DAILY [facility] Last Admin: 08/04/17 10:28 Dose: 500 mg Enoxaparin Sodium (Lovenox) 160 mg 1 mg/kg (160 mg) SUBCUT DAILY [facility] Last Admin: 08/04/17 07:47 Dose: 160 mg Ferrous Sulfate (Ferrous Sulfate) 325 mg PO BID [facility] Last Admin: 08/04/17 10:34 Dose: 325 mg Furosemide (Lasix) 40 mg IVPUSH DAILY [facility] Last Admin: 08/04/17 07:47 Dose: 40 mg Azithromycin 500 mg/ Sodium (Chloride) 250 mls @ 250 mls/hr IV Q24H [facility] Last Admin: 08/03/17 13:49 Dose: 250 mls/hr Ceftriaxone Sodium 1 gm/ (Sodium Chloride) 50 mls @ 200 mls/hr IV Q24H [facility] Last Admin: 08/03/17 13:32 Dose: 200 mls/hr Sodium Chloride (Sodium Chloride 0.45%) 1,000 mls @ 75 mls/hr IV ASDIRECTED [facility] Last Admin: 08/03/17 22:52 Dose: 75 mls/hr Insulin Aspart (Novolog) 0 unit SUBCUT TIDMEALS [facility] PRN Reason: Protocol Last Admin: 08/04/17 09:44 Dose: Not Given Levothyroxine Sodium (Synthroid) 88 mcg PO ACBREAKFAST [facility] Last Admin: 08/04/17 10:30 Dose: 88 mcg Multivitamins/Minerals/Vitamin C (Childrens Chewable Vitamin) 1 tab PO DAILY [facility] Last Admin: 08/04/17 08:04 Dose: Not Given Non-Formulary Medication (Arginine/Glutamine/Calcium Hmb [[place] Packet]) 1 each PO DAILY [facility] Last Admin: 08/04/17 08:04 Dose: Not Given Non-Formulary Medication (L.Acidoph,Paracasei, B.Lactis [Probiotic]) 1 each PO 1200 [facility] Last Admin: 08/03/17 13:34 Dose: Not Given Omeprazole (Omeprazole) 40 mg PO ACBREAKFAST [facility] Last Admin: 08/04/17 10:31 Dose: 40 mg Potassium Chloride (Klor-Con M20) 20 meq PO DAILY [facility] Last Admin: 08/04/17 10:29 Dose: 20 meq Sodium Chloride (Saline Flush) 10 ml FLUSH ASDIRECTED PRN PRN Reason: Keep Vein Open Warfarin Sodium (Coumadin) 5 mg PO SuTuThSa@1800 [facility] Last Admin: 08/03/17 17:22 Dose: Not Given Warfarin Sodium (Coumadin) 7.5 mg PO MOWEFR@1800 [facility] Zinc Gluconate (Zinc) 50 mg PO DAILY [facility] Last Admin: 08/04/17 10:31 Dose: 50 mg Discontinued Medications Furosemide (Lasix) 40 mg PO DAILY [facility] - Exam Quality Assessment: Supplemental Oxygen, DVT Prophylaxis General: Alert, Oriented HEENT: Pupils Equal, Pupils Reactive, EOMI, Mucous Membr. Moist/[place] Neck: Supple Lungs: Normal Respiratory Effort, Decreased Breath Sounds (in the base), Wheezing (heard scattered over the lung field, both inspiratory and expiratory.) , Other (She has condued upper airway sounds heard all over the lung velez.) Cardiovascular: Regular Rate, Regular Rhythm GI/Abdominal Exam: Normal Bowel Sounds, Soft Extremities: Normal Inspection, Pedal Edema (Chronic pedal edema) - Problem List & Annotations (1) Right lower lobe pneumonia SNOMED Code(s): 041386402 Code(s): J18.1 - LOBAR PNEUMONIA, UNSPECIFIED ORGANISM Status: Acute Current Visit: Yes Qualifiers: Pneumonia type: due to unspecified organism Qualified Code(s): J18.1 - Lobar pneumonia, unspecified organism - Problem List Review Problem List Initiated/Reviewed/Updated: Yes - Assessment Assessment:: Right lower lobe pneumonia - Plan Plan:: Pt is awake and alert. She does not appear lethargic or somnolence. She has been afebrile. Her SPO2 on 6 litre [place] oxygen was 90%, Me and Nurse Shelby did make her cough and her SPO2 improved to 93 %. Incentive spirometer was brought into room, she did good Upto 1000cc on it few times and coughed. Will continue IV antibiotics. Patient needs is good pulmonary toileting. Needs to be on mucolytic agents like tesssalon or guaifenesin to help expectorate. Needs Duonebs to open up the airway. Needs Incentive spirometry to expand the lungs. This should be the main concern at this point. hence I am starting her on incentive spirometer exercises every 2 hr and also back on angie montoya..
[2017-08-04] MEDS: Benzonatate 100 MG Cap PO SCH ×2 (13:02→20:38)
[2017-08-04] MEDS: cefTRIAXone 1 GM in Sodium Chloride 0.9% 50 ML IV SCH (13:05)
[2017-08-04] MEDS: Non-Formulary Medication 1 Each (L.Acidoph,Paracasei, B.Lactis [Probiotic] 1 EACH) PO SCH (13:18)
[2017-08-04] MEDS: Azithromycin 500 MG in Sodium Chloride 0.9% 250 ML IV SCH (13:49)
[2017-08-04] MEDS: Sodium Chloride 0.45% 1,000 ML IV SCH (13:59)
[2017-08-04] MEDS ORDERED: Furosemide 20 MG Tab ONE (16:00)
[2017-08-04] MEDS: Warfarin 7.5 MG Tab PO SCH (19:50)
[2017-08-05] MEDS: Albuterol/Ipratropium 3.0-0.5 MG/3 ML Neb Soln INH SCH ×3 (05:07→16:48)
[2017-08-05] MEDS: Omeprazole 40 MG Cap.CR PO SCH (06:32)
[2017-08-05] MEDS: Levothyroxine 88 MCG Tab PO SCH (06:32)
[2017-08-05] MEDS ORDERED: Insulin Glargine,Human Rec. Analog 100 Units/ML 3 ML Pen SUBCUT SCH (08:00)
[2017-08-05] MEDS: Enoxaparin 80 MG/0.8 ML Syringe SUBCUT SCH (08:02)
[2017-08-05] MEDS: Furosemide 40 MG Tab PO SCH (08:03)
[2017-08-05] MEDS: Lactobacillus Acidophilus/Lactobacillus Sporogenes (Probiotic) Tab PO SCH (08:03)
[2017-08-05] MEDS: Potassium Chloride 20 MEQ Tab.ER PO SCH (08:03)
[2017-08-05] MEDS: Ferrous Sulfate 325 MG Tab PO SCH ×2 (08:03→21:58)
[2017-08-05] MEDS: Zinc (Zinc Gluconate) 50 MG Tab PO SCH (08:03)
[2017-08-05] MEDS: Multivitamin, Childrens Tab.Chew PO SCH (08:04)
[2017-08-05] MEDS: Ascorbic Acid 500 MG Tab PO SCH (08:04)
[2017-08-05] MEDS: Acetaminophen 500 MG Tab PO SCH ×2 (08:13→21:58)
[2017-08-05] MEDS: VICTOZA 1.2 MG SUBCUT SCH (08:13)
[2017-08-05] MEDS: Insulin Aspart 100 Units/ML 3 ML Pen SUBCUT SCH ×3 (08:16→17:15)
[2017-08-05] MEDS: Insulin Detemir 100 Units/ML 3 ML Pen SUBCUT SCH (10:30)
[2017-08-05] MEDS: Benzonatate 100 MG Cap PO SCH ×3 (10:43→21:58)
[2017-08-05] MEDS: CALCIUM HMB PO SCH (12:27)
[2017-08-05] MEDS: GLUTAMINE PO SCH (12:27)
[2017-08-05] MEDS: ARGININE PO SCH (12:27)
[2017-08-05] MEDS: cefTRIAXone 1 GM in Sodium Chloride 0.9% 50 ML IV SCH (12:28)
[2017-08-05] MEDS ORDERED: Azithromycin 500 MG Tab ONE (14:36)
[2017-08-05] MEDS: Azithromycin 250 MG Tab PO SCH (14:50)
[2017-08-05] MEDS: Furosemide 20 MG Tab PO SCH (16:47)
[2017-08-05] MEDS: Azithromycin 500 MG in Sodium Chloride 0.9% 250 ML IV SCH (17:32)
[2017-08-05] MEDS: Warfarin 5 MG Tab PO SCH (18:06)
--- NOTE | 2017-08-05 19:14 | PCM.PN ---
- General Info Date of Service: 08/05/17 Functional Status: Reports: Pain Controlled - Review of Systems General: Reports: Weakness HEENT: Reports: No Symptoms Pulmonary: Reports: Shortness of Breath, Cough Cardiovascular: Reports: No Symptoms Gastrointestinal: Reports: No Symptoms Genitourinary: Reports: No Symptoms Musculoskeletal: Reports: No Symptoms Skin: Reports: No Symptoms Neurological: Reports: No Symptoms - Patient Data Vitals - Most Recent: Last Vital Signs Temp 36.9 C 08/05/17 14:00 Pulse 93 08/05/17 05:24 Resp 20 08/05/17 05:24 BP 151/69 H 08/05/17 14:00 Pulse Ox 97 08/05/17 14:00 Weight - Most Recent: 146.374 kg I&O - Last 24 Hours: Intake & Output 08/05/17 08/05/17 08/05/17 06:59 14:59 22:59 Intake Total 100 915 Output Total 550 950 Balance -450 -35 Lab Results Last 24 Hours: Laboratory Results - last 24 hr 08/05/17 08/05/17 08/05/17 Range/Units 06:59 09:34 10:40 WBC 6.9 D (4.0-11.0) K/uL RBC 4.05 (3.80-5.80) M/uL Hgb 13.1 (11.5-16.5) g/dL Hct 42.6 (37.0-47.0) % MCV 105 H (76-96) fL MCH 32.3 H (27.0-32.0) pg MCHC 30.8 L (31.0-35.0) g/dL RDW 16.3 H (11.0-16.0) % Plt Count 136 L (150-500) K/uL MPV 10.6 H (6.0-10.0) fL Neutrophils % (Manual) 80.0 H (45.0-70.0) % Band Neutrophils % 1.0 % Lymphocytes % (Manual) 12.0 L (20.0-40.0) % Monocytes % (Manual) 6.0 (3.0-10.0) % Eosinophils % (Manual) 1.0 (1.0-5.0) % Platelet Estimate Adequate Anisocytosis Few Macrocytosis Few Sodium (136-145) mmol/L Potassium (3.5-5.1) mmol/L Chloride (98-107) mmol/L Carbon Dioxide (21.0-32.0) mmol/L Anion Gap (5.0-15.0) mmol/L BUN (8-26) mg/dL Creatinine (0.55-1.02) mg/dL Est Cr Clr Drug Dosing mL/min Estimated GFR (MDRD) (>60) MLS/MIN BUN/Creatinine Ratio (6-25) Glucose (74-100) mg/dL POC Glucose 219 H 238 H (74-110) mg/dL Calcium (8.5-10.1) mg/dL Total Bilirubin (0.0-1.0) mg/dL AST (15-37) U/L ALT (12-78) U/L Alkaline Phosphatase (46-116) U/L Total Protein (6.4-8.2) g/dL Albumin (3.4-5.0) g/dL Globulin (2.2-4.2) g/dL Albumin/Globulin Ratio (0.8-2.0) 08/05/17 08/05/17 08/05/17 Range/Units 10:40 11:08 15:50 WBC (4.0-11.0) K/uL RBC (3.80-5.80) M/uL Hgb (11.5-16.5) g/dL Hct (37.0-47.0) % MCV (76-96) fL MCH (27.0-32.0) pg MCHC (31.0-35.0) g/dL RDW (11.0-16.0) % Plt Count (150-500) K/uL MPV (6.0-10.0) fL Neutrophils % (Manual) (45.0-70.0) % Band Neutrophils % % Lymphocytes % (Manual) (20.0-40.0) % Monocytes % (Manual) (3.0-10.0) % Eosinophils % (Manual) (1.0-5.0) % Platelet Estimate Anisocytosis Macrocytosis Sodium 144 (136-145) mmol/L Potassium 3.6 (3.5-5.1) mmol/L Chloride 102 (98-107) mmol/L Carbon Dioxide 42.1 H (21.0-32.0) mmol/L Anion Gap 3.5 L (5.0-15.0) mmol/L BUN 21 (8-26) mg/dL Creatinine 1.30 H (0.55-1.02) mg/dL Est Cr Clr Drug Dosing 32.61 mL/min Estimated GFR (MDRD) 40 L (>60) MLS/MIN BUN/Creatinine Ratio 16.2 (6-25) Glucose 261 H D (74-100) mg/dL POC Glucose 233 H 152 H (74-110) mg/dL Calcium 8.7 (8.5-10.1) mg/dL Total Bilirubin 0.5 (0.0-1.0) mg/dL AST 29 (15-37) U/L ALT 14 (12-78) U/L Alkaline Phosphatase 62 (46-116) U/L Total Protein 7.5 (6.4-8.2) g/dL Albumin 2.4 L (3.4-5.0) g/dL Globulin 5.1 H (2.2-4.2) g/dL Albumin/Globulin Ratio 0.5 L (0.8-2.0) Med Orders - Current: Current Medications Acetaminophen (Tylenol Extra Strength) 1,000 mg PO BID [facility] Last Admin: 08/05/17 08:13 Dose: 1,000 mg Albuterol/Ipratropium (Duoneb 3.0-0.5 Mg/3 Ml) 3 ml INH Q6H [facility] Last Admin: 08/05/17 16:48 Dose: 3 ml Ascorbic Acid (Vitamin C) 500 mg PO DAILY [facility] Last Admin: 08/05/17 08:04 Dose: 500 mg Azithromycin (Zithromax) 500 mg PO DAILY [facility] Last Admin: 08/05/17 14:50 Dose: Not Given Benzonatate (Tessalon Perles) 200 mg PO TID [facility] Last Admin: 08/05/17 14:29 Dose: Not Given Enoxaparin Sodium (Lovenox) 160 mg 1 mg/kg (160 mg) SUBCUT DAILY [facility] Last Admin: 08/05/17 08:02 Dose: 160 mg Ferrous Sulfate (Ferrous Sulfate) 325 mg PO BID [facility] Last Admin: 08/05/17 08:03 Dose: 325 mg Furosemide (Lasix) 40 mg PO DAILY [facility] Last Admin: 08/05/17 08:03 Dose: 40 mg Furosemide (Lasix) 20 mg PO DAILY@1600 [facility] Last Admin: 08/05/17 16:47 Dose: 20 mg Ceftriaxone Sodium 1 gm/ (Sodium Chloride) 50 mls @ 200 mls/hr IV Q24H [facility] Last Admin: 08/05/17 12:28 Dose: 200 mls/hr Sodium Chloride (Sodium Chloride 0.45%) 1,000 mls @ 75 mls/hr IV ASDIRECTED [facility] Last Admin: 08/04/17 13:59 Dose: 75 mls/hr Insulin Aspart (Novolog) 0 unit SUBCUT TIDMEALS [facility] PRN Reason: Protocol Last Admin: 08/05/17 17:15 Dose: 3 units Insulin Detemir (Levemir) 26 unit SUBCUT DAILY [facility] Last Admin: 08/05/17 10:30 Dose: 26 units Lactobacillus Acidophilus (Acidolphilus Extra Strength) 1 tab PO DAILY [facility] Last Admin: 08/05/17 08:03 Dose: 1 tab Levothyroxine Sodium (Synthroid) 88 mcg PO ACBREAKFAST [facility] Last Admin: 08/05/17 06:32 Dose: 88 mcg Multivitamins/Minerals/Vitamin C (Childrens Chewable Vitamin) 1 tab PO DAILY [facility] Last Admin: 08/05/17 08:04 Dose: 1 tab Non-Formulary Medication (Arginine/Glutamine/Calcium Hmb [[place] Packet]) 1 each PO DAILY [facility] Last Admin: 08/05/17 12:27 Dose: Not Given Victoza 1.2mg 1.2 each SUBCUT DAILY [facility] Last Admin: 08/05/17 08:13 Dose: 1.2 each Omeprazole (Omeprazole) 40 mg PO ACBREAKFAST [facility] Last Admin: 08/05/17 06:32 Dose: 40 mg Potassium Chloride (Klor-Con M20) 20 meq PO DAILY [facility] Last Admin: 08/05/17 08:03 Dose: 20 meq Sodium Chloride (Saline Flush) 10 ml FLUSH ASDIRECTED PRN PRN Reason: Keep Vein Open Last Admin: 08/05/17 05:14 Dose: 10 ml Warfarin Sodium (Coumadin) 5 mg PO SuTuThSa@1800 [facility] Last Admin: 08/05/17 18:06 Dose: 5 mg Warfarin Sodium (Coumadin) 7.5 mg PO MOWEFR@1800 [facility] Last Admin: 08/04/17 19:50 Dose: 7.5 mg Zinc Gluconate (Zinc) 50 mg PO DAILY [facility] Last Admin: 08/05/17 08:03 Dose: 50 mg Discontinued Medications Azithromycin (Zithromax) Confirm Administered Dose 500 mg .ROUTE .STK-MED ONE Stop: 08/05/17 14:37 Last Admin: 08/05/17 14:47 Dose: 500 mg Furosemide (Lasix) 40 mg PO DAILY [facility] Furosemide (Lasix) 40 mg IVPUSH DAILY [facility] Last Admin: 08/04/17 07:47 Dose: 40 mg Furosemide (Lasix) Confirm Administered Dose 20 mg .ROUTE .STK-MED ONE Stop: 08/04/17 16:01 Last Admin: 08/04/17 16:04 Dose: 20 mg Azithromycin 500 mg/ Sodium (Chloride) 250 mls @ 250 mls/hr IV Q24H [facility] Last Admin: 08/05/17 17:32 Dose: Not Given Insulin Glargine (Lantus Solostar) 26 units SUBCUT DAILY [facility] Last Admin: 08/05/17 10:54 Dose: Not Given Non-Formulary Medication (L.Acidoph,Paracasei, B.Lactis [Probiotic]) 1 each PO 1200 [facility] Last Admin: 08/04/17 13:18 Dose: 1 each - Exam Quality Assessment: Supplemental Oxygen General: Alert, Oriented HEENT: Pupils Equal, Pupils Reactive, EOMI, Mucous Membr. Moist/[place] Neck: Supple Lungs: Clear to Auscultation Cardiovascular: Regular Rate, Regular Rhythm GI/Abdominal Exam: Normal Bowel Sounds, Soft, Non-Tender, No Organomegaly, No Distention, No Abnormal Bruit, No Mass, Pelvis Stable Extremities: Pedal Edema, Limited Range of Motion Skin: Warm, Dry, Intact Wound/Incisions: Healing Well Neurological: No New Focal Deficit Psy/Mental Status: Alert (Will continue same orders, except she pulled off her IV. We will have a trial on oral meds and transfer back to [facility] if OK today and tomorrow.), Normal Affect, Normal Mood - Problem List Review Problem List Initiated/Reviewed/Updated: Yes - My Orders Last 24 Hours: My Active Orders 08/05/17 10:45 Insulin Detemir [Levemir] 26 unit SUBCUT DAILY - Assessment Assessment:: Right lower lobe pneumonia - Plan Plan:: Pt is awake and alert. She does not appear lethargic or somnolence. She has been afebrile. Her SPO2 on 6 litre [place] oxygen was 90%, Me and Nurse Shelby did make her cough and her SPO2 improved to 93 %. Incentive spirometer was brought into room, she did good Upto 1000cc on it few times and coughed. Will continue IV antibiotics. Patient needs is good pulmonary toileting. Needs to be on mucolytic agents like tesssalon or guaifenesin to help expectorate. Needs Duonebs to open up the airway. Needs Incentive spirometry to expand the lungs. This should be the main concern at this point. hence I am starting her on incentive spirometer exercises every 2 hr and also back on tessalon jan..
[2017-08-06] MEDS: Albuterol/Ipratropium 3.0-0.5 MG/3 ML Neb Soln INH SCH ×4 (04:18→19:04)
[2017-08-06] MEDS: Levothyroxine 88 MCG Tab PO SCH (06:01)
[2017-08-06] MEDS: Omeprazole 40 MG Cap.CR PO SCH (06:01)
[2017-08-06] MEDS: Enoxaparin 80 MG/0.8 ML Syringe SUBCUT SCH (08:25)
[2017-08-06] MEDS: Ferrous Sulfate 325 MG Tab PO SCH ×2 (08:26→19:50)
[2017-08-06] MEDS: Lactobacillus Acidophilus/Lactobacillus Sporogenes (Probiotic) Tab PO SCH (08:26)
[2017-08-06] MEDS: Ascorbic Acid 500 MG Tab PO SCH (08:26)
[2017-08-06] MEDS: Acetaminophen 500 MG Tab PO SCH ×2 (08:26→19:51)
[2017-08-06] MEDS: Multivitamin, Childrens Tab.Chew PO SCH (08:26)
[2017-08-06] MEDS: Furosemide 40 MG Tab PO SCH (08:26)
[2017-08-06] MEDS: Potassium Chloride 20 MEQ Tab.ER PO SCH (08:26)
[2017-08-06] MEDS: Azithromycin 250 MG Tab PO SCH (08:26)
[2017-08-06] MEDS: Zinc (Zinc Gluconate) 50 MG Tab PO SCH (08:27)
[2017-08-06] MEDS: VICTOZA 1.2 MG SUBCUT SCH (08:27)
[2017-08-06] MEDS: Insulin Aspart 100 Units/ML 3 ML Pen SUBCUT SCH ×3 (08:27→17:17)
[2017-08-06] MEDS: Insulin Detemir 100 Units/ML 3 ML Pen SUBCUT SCH (08:28)
[2017-08-06] MEDS: Benzonatate 100 MG Cap PO SCH ×3 (12:01→19:51)
[2017-08-06] MEDS: cefTRIAXone 1 GM in Sodium Chloride 0.9% 50 ML IV SCH (12:17)
[2017-08-06] MEDS: ARGININE PO SCH (13:12)
[2017-08-06] MEDS: CALCIUM HMB PO SCH (13:12)
[2017-08-06] MEDS: GLUTAMINE PO SCH (13:12)
--- NOTE | 2017-08-06 13:23 | PCM.PN ---
- General Info Date of Service: 08/06/17 Functional Status: Reports: Pain Controlled - Review of Systems General: Reports: Weakness, Fatigue, Malaise HEENT: Reports: No Symptoms Pulmonary: Reports: Shortness of Breath, Cough Cardiovascular: Reports: No Symptoms Gastrointestinal: Reports: No Symptoms Genitourinary: Reports: No Symptoms Musculoskeletal: Reports: No Symptoms Skin: Reports: No Symptoms Neurological: Reports: No Symptoms Psychiatric: Reports: No Symptoms - Patient Data Vitals - Most Recent: Last Vital Signs Temp 35.2 C 08/06/17 10:00 Pulse 80 08/06/17 10:00 Resp 24 H 08/06/17 06:28 BP 143/98 H 08/06/17 10:00 Pulse Ox 92 L 08/06/17 10:00 Weight - Most Recent: 146.374 kg I&O - Last 24 Hours: Intake & Output 08/05/17 08/06/17 08/06/17 22:59 06:59 14:59 Intake Total 915 360 Output Total 950 600 Balance -35 -240 Lab Results Last 24 Hours: Laboratory Results - last 24 hr 08/05/17 08/06/17 08/06/17 Range/Units 15:50 07:19 11:12 POC Glucose 152 H 185 H 235 H (74-110) mg/dL Med Orders - Current: Current Medications Acetaminophen (Tylenol Extra Strength) 1,000 mg PO BID [facility] Last Admin: 08/06/17 08:26 Dose: 1,000 mg Albuterol/Ipratropium (Duoneb 3.0-0.5 Mg/3 Ml) 3 ml INH Q6H [facility] Last Admin: 08/06/17 12:14 Dose: 3 ml Ascorbic Acid (Vitamin C) 500 mg PO DAILY [facility] Last Admin: 08/06/17 08:26 Dose: 500 mg Azithromycin (Zithromax) 500 mg PO DAILY [facility] Last Admin: 08/06/17 08:26 Dose: 500 mg Benzonatate (Tessalon Perles) 200 mg PO TID [facility] Last Admin: 08/06/17 12:01 Dose: Not Given Enoxaparin Sodium (Lovenox) 160 mg 1 mg/kg (160 mg) SUBCUT DAILY [facility] Last Admin: 08/06/17 08:25 Dose: 160 mg Ferrous Sulfate (Ferrous Sulfate) 325 mg PO BID [facility] Last Admin: 08/06/17 08:26 Dose: 325 mg Furosemide (Lasix) 40 mg PO DAILY [facility] Last Admin: 08/06/17 08:26 Dose: 40 mg Furosemide (Lasix) 20 mg PO DAILY@1600 [facility] Last Admin: 08/05/17 16:47 Dose: 20 mg Ceftriaxone Sodium 1 gm/ (Sodium Chloride) 50 mls @ 200 mls/hr IV Q24H [facility] Last Admin: 08/06/17 12:17 Dose: 200 mls/hr Sodium Chloride (Sodium Chloride 0.45%) 1,000 mls @ 75 mls/hr IV ASDIRECTED [facility] Last Admin: 08/04/17 13:59 Dose: 75 mls/hr Insulin Aspart (Novolog) 0 unit SUBCUT TIDMEALS [facility] PRN Reason: Protocol Last Admin: 08/06/17 12:13 Dose: 6 units Insulin Detemir (Levemir) 26 unit SUBCUT DAILY [facility] Last Admin: 08/06/17 08:28 Dose: 26 units Lactobacillus Acidophilus (Acidolphilus Extra Strength) 1 tab PO DAILY [facility] Last Admin: 08/06/17 08:26 Dose: 1 tab Levothyroxine Sodium (Synthroid) 88 mcg PO ACBREAKFAST [facility] Last Admin: 08/06/17 06:01 Dose: 88 mcg Multivitamins/Minerals/Vitamin C (Childrens Chewable Vitamin) 1 tab PO DAILY [facility] Last Admin: 08/06/17 08:26 Dose: 1 tab Non-Formulary Medication (Arginine/Glutamine/Calcium Hmb [[place] Packet]) 1 each PO DAILY [facility] Last Admin: 08/06/17 13:12 Dose: Not Given Victoza 1.2mg 1.2 each SUBCUT DAILY [facility] Last Admin: 08/06/17 08:27 Dose: 1.2 each Omeprazole (Omeprazole) 40 mg PO ACBREAKFAST [facility] Last Admin: 08/06/17 06:01 Dose: 40 mg Potassium Chloride (Klor-Con M20) 20 meq PO DAILY [facility] Last Admin: 08/06/17 08:26 Dose: 20 meq Sodium Chloride (Saline Flush) 10 ml FLUSH ASDIRECTED PRN PRN Reason: Keep Vein Open Last Admin: 08/05/17 05:14 Dose: 10 ml Warfarin Sodium (Coumadin) 5 mg PO SuTuThSa@1800 [facility] Last Admin: 08/05/17 18:06 Dose: 5 mg Warfarin Sodium (Coumadin) 7.5 mg PO MOWEFR@1800 [facility] Last Admin: 08/04/17 19:50 Dose: 7.5 mg Zinc Gluconate (Zinc) 50 mg PO DAILY [facility] Last Admin: 08/06/17 08:27 Dose: 50 mg Discontinued Medications Azithromycin (Zithromax) Confirm Administered Dose 500 mg .ROUTE .STK-MED ONE Stop: 08/05/17 14:37 Last Admin: 08/05/17 14:47 Dose: 500 mg Furosemide (Lasix) 40 mg PO DAILY [facility] Furosemide (Lasix) 40 mg IVPUSH DAILY [facility] Last Admin: 08/04/17 07:47 Dose: 40 mg Furosemide (Lasix) Confirm Administered Dose 20 mg .ROUTE .[employer]-MED ONE Stop: 08/04/17 16:01 Last Admin: 08/04/17 16:04 Dose: 20 mg Azithromycin 500 mg/ Sodium (Chloride) 250 mls @ 250 mls/hr IV Q24H [facility] Last Admin: 08/05/17 17:32 Dose: Not Given Insulin Glargine (Lantus Solostar) 26 units SUBCUT DAILY [facility] Last Admin: 08/05/17 10:54 Dose: Not Given Non-Formulary Medication (L.Acidoph,Paracasei, B.Lactis [Probiotic]) 1 each PO 1200 [facility] Last Admin: 08/04/17 13:18 Dose: 1 each - Exam General: Alert, Oriented HEENT: Pupils Equal, Pupils Reactive, EOMI, Mucous Membr. Moist/[place] Neck: Supple Lungs: Crackles, Rales, Rhonchi (In all lung velez.) - Problem List & Annotations (1) Hypernatremia SNOMED Code(s): 47164981 Code(s): E87.0 - HYPEROSMOLALITY AND HYPERNATREMIA Status: Acute Priority : Medium Current Visit: Yes (2) Low oxygen saturation SNOMED Code(s): 052781078 Code(s): R79.81 - ABNORMAL BLOOD-GAS LEVEL Status: Acute Priority: High Current Visit: Yes (3) Palliative care patient SNOMED Code(s): 816837813 Code(s): Z51.5 - ENCOUNTER FOR PALLIATIVE CARE Status: Acute Priority: Medium Current Visit: Yes (4) Right lower lobe pneumonia SNOMED Code(s): 702552148 Code(s): J18.1 - LOBAR PNEUMONIA, UNSPECIFIED ORGANISM Status: Acute Priority: High Current Visit: Yes Qualifiers: Pneumonia type: due to unspecified organism Qualified Code(s): J18.1 - Lobar pneumonia, unspecified organism (5) Diabetes mellitus type 2 SNOMED Code(s): 39852798 Code(s): E11.9 - TYPE 2 DIABETES MELLITUS WITHOUT COMPLICATIONS Status: Chronic Priority: High Current Visit: Yes Annotation/Comment:: 05-17-2017 Blood sugars monitored ac and hs. Novolog sliding scale utilized. Am blood sugar is 100. Appetite is good. continue with skin care and application of nystatin to skin folds. 05-18-17 Continue with ac and hs blodd sugar and sliding scale. FBS 138 today. continue with nystatin powder to skin folds, bid. - Problem List Review Problem List Initiated/Reviewed/Updated: Yes - Assessment Assessment:: Right lower lobe pneumonia - Plan Plan:: Pt is awake and alert. She does not appear lethargic or somnolence. She has been afebrile. Her SPO2 on 6 litre [place] oxygen was 90%, Me and Nurse Shelby did make her cough and her SPO2 improved to 93 %. Incentive spirometer was brought into room, she did good Upto 1000cc on it few times and coughed. Will continue IV antibiotics. Patient needs is good pulmonary toileting. Needs to be on mucolytic agents like tesssalon or guaifenesin to help expectorate. Needs Duonebs to open up the airway. Needs Incentive spirometry to expand the lungs. This should be the main concern at this point. hence I am starting her on incentive spirometer exercises every 2 hr and also back on angie montoya..
[2017-08-06] MEDS: Furosemide 20 MG Tab PO SCH (15:53)
[2017-08-06] MEDS: Warfarin 5 MG Tab PO SCH (19:04)
[2017-08-06] MEDS ORDERED: Morphine 2 MG/ML Syringe ONE (19:36)
[2017-08-06] MEDS: Morphine 2 MG/ML Syringe IVPUSH PRN (19:51)
[2017-08-07] MEDS: Albuterol/Ipratropium 3.0-0.5 MG/3 ML Neb Soln INH SCH ×5 (01:49→23:34)
[2017-08-07] MEDS: Omeprazole 40 MG Cap.CR PO SCH (06:04)
[2017-08-07] MEDS: Levothyroxine 88 MCG Tab PO SCH (06:05)
[2017-08-07] MEDS: Multivitamin, Childrens Tab.Chew PO SCH (07:24)
[2017-08-07] MEDS: Acetaminophen 500 MG Tab PO SCH ×2 (07:24→21:50)
[2017-08-07] MEDS: Benzonatate 100 MG Cap PO SCH ×3 (07:24→21:50)
[2017-08-07] MEDS: Lactobacillus Acidophilus/Lactobacillus Sporogenes (Probiotic) Tab PO SCH (07:24)
[2017-08-07] MEDS: Ferrous Sulfate 325 MG Tab PO SCH ×2 (07:25→21:50)
[2017-08-07] MEDS: Azithromycin 250 MG Tab PO SCH (07:25)
[2017-08-07] MEDS: Furosemide 40 MG Tab PO SCH (07:25)
[2017-08-07] MEDS: Ascorbic Acid 500 MG Tab PO SCH (07:25)
[2017-08-07] MEDS: Potassium Chloride 20 MEQ Tab.ER PO SCH (07:25)
[2017-08-07] MEDS: Zinc (Zinc Gluconate) 50 MG Tab PO SCH (07:25)
[2017-08-07] MEDS: Enoxaparin 80 MG/0.8 ML Syringe SUBCUT SCH (07:30)
[2017-08-07] MEDS: Insulin Aspart 100 Units/ML 3 ML Pen SUBCUT SCH ×3 (07:31→19:23)
[2017-08-07] MEDS: Insulin Detemir 100 Units/ML 3 ML Pen SUBCUT SCH ×3 (07:32→12:17)
[2017-08-07] MEDS: VICTOZA 1.2 MG SUBCUT SCH ×2 (07:35→10:57)
[2017-08-07] MEDS: GLUTAMINE PO SCH (08:57)
[2017-08-07] MEDS: CALCIUM HMB PO SCH (08:57)
[2017-08-07] MEDS: ARGININE PO SCH (08:57)
[2017-08-07] MEDS: cefTRIAXone 1 GM in Sodium Chloride 0.9% 50 ML IV SCH (11:28)
--- NOTE | 2017-08-07 15:29 | PCM.PN ---
- General Info Date of Service: 08/07/17 Subjective Update: This is a 77yo F with somnolence and weakness who denies any shortness of breath , denies any chest pain, denies any fever or chills but does feel weak. She is alert and oriented x4. Patient is somnolent and falling asleep as we talk. She can answer properly and quickly until she starts to nod off again. - Review of Systems General: Reports: Weakness HEENT: Reports: No Symptoms Pulmonary: Reports: No Symptoms Cardiovascular: Reports: No Symptoms Gastrointestinal: Reports: No Symptoms Genitourinary: Reports: No Symptoms Musculoskeletal: Reports: No Symptoms Skin: Reports: No Symptoms Neurological: Reports: Weakness - Patient Data Vitals - Most Recent: Last Vital Signs Temp 36.4 C 08/07/17 12:00 Pulse 92 08/07/17 12:00 Resp 18 08/07/17 12:00 BP 151/64 H 08/07/17 12:00 Pulse Ox 96 08/07/17 12:00 Weight - Most Recent: 145.879 kg I&O - Last 24 Hours: Intake & Output 08/07/17 08/07/17 08/07/17 06:59 14:59 22:59 Intake Total 360 Output Total 300 Balance 60 Lab Results Last 24 Hours: Laboratory Results - last 24 hr 08/06/17 08/07/17 08/07/17 Range/Units 16:07 06:29 07:20 WBC 6.9 (4.0-11.0) K/uL RBC 4.23 (3.80-5.80) M/uL Hgb 13.7 (11.5-16.5) g/dL Hct 43.4 (37.0-47.0) % MCV 103 H (76-96) fL MCH 32.4 H (27.0-32.0) pg MCHC 31.6 (31.0-35.0) g/dL RDW 16.6 H (11.0-16.0) % Plt Count 139 L (150-500) K/uL MPV 11.0 H (6.0-10.0) fL Neut % (Auto) 68.2 (45.0-70.0) % Lymph % (Auto) 21.1 (20.0-40.0) % [place] % (Auto) 9.4 (3.0-10.0) % Eos % (Auto) 1.2 (1.0-5.0) % Baso % (Auto) 0.1 (0.0-0.5) % Neut # (Auto) 4.69 (2.00-7.50) K/uL Lymph # (Auto) 1.45 L (1.50-4.00) K/uL Flagler # (Auto) 0.65 (0.20-0.80) K/uL Eos # (Auto) 0.08 (0.04-0.40) K/uL Baso # (Auto) 0.01 L (0.02-0.10) K/uL Sodium (136-145) mmol/L Potassium (3.5-5.1) mmol/L Chloride (98-107) mmol/L Carbon Dioxide (21.0-32.0) mmol/L Anion Gap (5.0-15.0) mmol/L BUN (8-26) mg/dL Creatinine (0.55-1.02) mg/dL Est Cr Clr Drug Dosing mL/min Estimated GFR (MDRD) (>60) MLS/MIN BUN/Creatinine Ratio (6-25) Glucose (74-100) mg/dL POC Glucose 167 H 150 H (74-110) mg/dL Calcium (8.5-10.1) mg/dL Total Bilirubin (0.0-1.0) mg/dL AST (15-37) U/L ALT (12-78) U/L Alkaline Phosphatase (46-116) U/L Total Protein (6.4-8.2) g/dL Albumin (3.4-5.0) g/dL Globulin (2.2-4.2) g/dL Albumin/Globulin Ratio (0.8-2.0) 08/07/17 08/07/17 Range/Units 07:20 11:06 WBC (4.0-11.0) K/uL RBC (3.80-5.80) M/uL Hgb (11.5-16.5) g/dL Hct (37.0-47.0) % MCV (76-96) fL MCH (27.0-32.0) pg MCHC (31.0-35.0) g/dL RDW (11.0-16.0) % Plt Count (150-500) K/uL MPV (6.0-10.0) fL Neut % (Auto) (45.0-70.0) % Lymph % (Auto) (20.0-40.0) % Flag[place] % (Auto) (3.0-10.0) % Eos % (Auto) (1.0-5.0) % Baso % (Auto) (0.0-0.5) % Neut # (Auto) (2.00-7.50) K/uL Lymph # (Auto) (1.50-4.00) K/uL Flagler # (Auto) (0.20-0.80) K/uL Eos # (Auto) (0.04-0.40) K/uL Baso # (Auto) (0.02-0.10) K/uL Sodium 144 (136-145) mmol/L Potassium 3.3 L (3.5-5.1) mmol/L Chloride 102 (98-107) mmol/L Carbon Dioxide 38.0 H (21.0-32.0) mmol/L Anion Gap 7.3 (5.0-15.0) mmol/L BUN 24 (8-26) mg/dL Creatinine 1.37 H (0.55-1.02) mg/dL Est Cr Clr Drug Dosing 30.94 mL/min Estimated GFR (MDRD) 37 L (>60) MLS/MIN BUN/Creatinine Ratio 17.5 (6-25) Glucose 172 H D (74-100) mg/dL POC Glucose 202 H (74-110) mg/dL Calcium 9.0 (8.5-10.1) mg/dL Total Bilirubin 0.4 (0.0-1.0) mg/dL AST 27 (15-37) U/L ALT 14 (12-78) U/L Alkaline Phosphatase 60 (46-116) U/L Total Protein 7.4 (6.4-8.2) g/dL Albumin 2.4 L (3.4-5.0) g/dL Globulin 5.0 H (2.2-4.2) g/dL Albumin/Globulin Ratio 0.5 L (0.8-2.0) Med Orders - Current: Current Medications Acetaminophen (Tylenol Extra Strength) 1,000 mg PO BID [facility] Last Admin: 08/07/17 07:24 Dose: 1,000 mg Albuterol/Ipratropium (Duoneb 3.0-0.5 Mg/3 Ml) 3 ml INH Q6H [facility] Last Admin: 08/07/17 10:59 Dose: 3 ml Ascorbic Acid (Vitamin C) 500 mg PO DAILY [facility] Last Admin: 08/07/17 07:25 Dose: 500 mg Azithromycin (Zithromax) 500 mg PO DAILY [facility] Last Admin: 08/07/17 07:25 Dose: 500 mg Benzonatate (Tessalon Perles) 200 mg PO TID [facility] Last Admin: 08/07/17 07:24 Dose: 200 mg Enoxaparin Sodium (Lovenox) 160 mg 1 mg/kg (160 mg) SUBCUT DAILY [facility] Last Admin: 08/07/17 07:30 Dose: 160 mg Ferrous Sulfate (Ferrous Sulfate) 325 mg PO BID [facility] Last Admin: 08/07/17 07:25 Dose: 325 mg Furosemide (Lasix) 40 mg PO DAILY [facility] Last Admin: 08/07/17 07:25 Dose: 40 mg Furosemide (Lasix) 20 mg PO DAILY@1600 [facility] Last Admin: 08/06/17 15:53 Dose: 20 mg Ceftriaxone Sodium 1 gm/ (Sodium Chloride) 50 mls @ 200 mls/hr IV Q24H [facility] Last Admin: 08/07/17 11:28 Dose: 200 mls/hr Sodium Chloride (Sodium Chloride 0.45%) 1,000 mls @ 75 mls/hr IV ASDIRECTED [facility] Last Admin: 08/04/17 13:59 Dose: 75 mls/hr Insulin Aspart (Novolog) 0 unit SUBCUT TIDMEALS [facility] PRN Reason: Protocol Last Admin: 08/07/17 12:19 Dose: Not Given Insulin Detemir (Levemir) 26 unit SUBCUT DAILY [facility] Last Admin: 08/07/17 12:17 Dose: 26 units Lactobacillus Acidophilus (Acidolphilus Extra Strength) 1 tab PO DAILY [facility] Last Admin: 08/07/17 07:24 Dose: 1 tab Levothyroxine Sodium (Synthroid) 88 mcg PO ACBREAKFAST [facility] Last Admin: 08/07/17 06:05 Dose: 88 mcg Morphine Sulfate (Morphine) 1 mg IVPUSH Q2H PRN PRN Reason: Dyspnea Last Admin: 08/06/17 19:51 Dose: 1 mg Multivitamins/Minerals/Vitamin C (Childrens Chewable Vitamin) 1 tab PO DAILY [facility] Last Admin: 08/07/17 07:24 Dose: 1 tab Non-Formulary Medication (Arginine/Glutamine/Calcium Hmb [[place] Packet]) 1 each PO DAILY [facility] Last Admin: 08/07/17 08:57 Dose: Not Given Victoza 1.2mg 1.2 each SUBCUT DAILY [facility] Last Admin: 08/07/17 10:57 Dose: Not Given Omeprazole (Omeprazole) 40 mg PO ACBREAKFAST [facility] Last Admin: 08/07/17 06:04 Dose: 40 mg Potassium Chloride (Klor-Con M20) 20 meq PO DAILY [facility] Last Admin: 08/07/17 07:25 Dose: 20 meq Sodium Chloride (Saline Flush) 10 ml FLUSH ASDIRECTED PRN PRN Reason: Keep Vein Open Last Admin: 08/05/17 05:14 Dose: 10 ml Warfarin Sodium (Coumadin) 5 mg PO SuTuThSa@1800 [facility] Last Admin: 08/06/17 19:04 Dose: 5 mg Warfarin Sodium (Coumadin) 7.5 mg PO MOWEFR@1800 [facility] Last Admin: 08/04/17 19:50 Dose: 7.5 mg Zinc Gluconate (Zinc) 50 mg PO DAILY [facility] Last Admin: 08/07/17 07:25 Dose: 50 mg Discontinued Medications Azithromycin (Zithromax) Confirm Administered Dose 500 mg .ROUTE .STK-MED ONE Stop: 08/05/17 14:37 Last Admin: 08/05/17 14:47 Dose: 500 mg Furosemide (Lasix) 40 mg PO DAILY [facility] Furosemide (Lasix) 40 mg IVPUSH DAILY [facility] Last Admin: 08/04/17 07:47 Dose: 40 mg Furosemide (Lasix) Confirm Administered Dose 20 mg .ROUTE .STK-MED ONE Stop: 08/04/17 16:01 Last Admin: 08/04/17 16:04 Dose: 20 mg Azithromycin 500 mg/ Sodium (Chloride) 250 mls @ 250 mls/hr IV Q24H [facility] Last Admin: 08/05/17 17:32 Dose: Not Given Insulin Glargine (Lantus Solostar) 26 units SUBCUT DAILY [facility] Last Admin: 08/05/17 10:54 Dose: Not Given Morphine Sulfate (Morphine) Confirm Administered Dose 2 mg .ROUTE .STK-MED ONE Stop: 08/06/17 19:37 Last Admin: 08/06/17 19:50 Dose: Not Given Non-Formulary Medication (L.Acidoph,Paracasei, B.Lactis [Probiotic]) 1 each PO 1200 [facility] Last Admin: 08/04/17 13:18 Dose: 1 each - Exam Quality Assessment: Supplemental Oxygen General: Alert, Oriented, Cooperative HEENT: Pupils Equal, Pupils Reactive, EOMI Neck: Supple Lungs: Clear to Auscultation, Normal Respiratory Effort Cardiovascular: Regular Rate, Regular Rhythm GI/Abdominal Exam: Normal Bowel Sounds Extremities: Normal Inspection Skin: Warm, Dry, Intact Neurological: No New Focal Deficit Psy/Mental Status: Alert, Normal Affect, Normal Mood - Problem List & Annotations (1) Palliative care patient SNOMED Code(s): 771436877 Code(s): Z51.5 - ENCOUNTER FOR PALLIATIVE CARE Status: Acute Priority: Medium Current Visit: Yes (2) Low oxygen saturation SNOMED Code(s): 888490346 Code(s): R79.81 - ABNORMAL BLOOD-GAS LEVEL Status: Acute Priority: High Current Visit: Yes (3) Right lower lobe pneumonia SNOMED Code(s): 956267829 Code(s): J18.1 - LOBAR PNEUMONIA, UNSPECIFIED ORGANISM Status: Acute Priority: High Current Visit: Yes Qualifiers: Pneumonia type: due to unspecified organism Qualified Code(s): J18.1 - Lobar pneumonia, unspecified organism (4) Diabetes mellitus type 2 SNOMED Code(s): 21199339 Code(s): E11.9 - TYPE 2 DIABETES MELLITUS WITHOUT COMPLICATIONS Status: Chronic Priority: High Current Visit: Yes Annotation/Comment:: 05-17-2017 Blood sugars monitored ac and hs. Novolog sliding scale utilized. Am blood sugar is 100. Appetite is good. continue with skin care and application of nystatin to skin folds. 05-18-17 Continue with ac and hs blodd sugar and sliding scale. FBS 138 today. continue with nystatin powder to skin folds, bid. (5) HTN, Benign hypertension SNOMED Code(s): 96205897 Code(s): I10 - ESSENTIAL (PRIMARY) HYPERTENSION Status: Chronic Priority : Medium Current Visit: Yes Annotation/Comment:: 09/23/2013 Blood pressure stable (6) snf resident SNOMED Code(s): 876534893 Code(s): Z59.3 - PROBLEMS RELATED TO LIVING IN RESIDENTIAL INSTITUTION Status: Chronic Priority: High Current Visit: Yes (7) Renal dysfunction Status: Chronic Priority: Medium Current Visit: Yes (8) Anemia SNOMED Code(s): 235401021 Code(s): D64.9 - ANEMIA, UNSPECIFIED Status: Acute Current Visit: No Annotation/Comment:: 06/11/2014 Hgb improving but will give 2 more units today. Also to have lasix between units. (9) Lethargy SNOMED Code(s): 887669389 Code(s): R53.83 - OTHER FATIGUE Status: Acute Current Visit: No - Problem List Review Problem List Initiated/Reviewed/Updated: Yes - Assessment Assessment:: Right lower lobe pneumonia - Plan Plan:: Pt is awake and alert. She does not appear lethargic or somnolence. She has been afebrile. Her SPO2 on 6 litre NC oxygen was 90%, Me and Nurse Shelby did make her cough and her SPO2 improved to 93 %. Incentive spirometer was brought into room, she did good Upto 1000cc on it few times and coughed. Will continue IV antibiotics. Patient needs is good pulmonary toileting. Needs to be on mucolytic agents like tesssalon or guaifenesin to help expectorate. Needs Duonebs to open up the airway. Needs Incentive spirometry to expand the lungs. This should be the main concern at this point. hence I am starting her on incentive spirometer exercises every 2 hr and also back on tessalon pearls.. 08/07/17 Patient is alert when awaken. She falls back asleep as soon as we are done talking. She denies any concerns and this may be her new baseline. We will continue current management of possible Pneumonia and possible UTI. Discussed plan of care with patient and patient understands and agrees with current management. F/u labs in AM.
[2017-08-07] MEDS: Furosemide 20 MG Tab PO SCH (16:27)
[2017-08-07] MEDS ORDERED: Furosemide 40 MG/4 ML VIAL IVPUSH ONE (17:41)
[2017-08-07] MEDS: Warfarin 7.5 MG Tab PO SCH (17:48)
[2017-08-07] MEDS: Sodium Chloride 0.45% 1,000 ML IV SCH (17:51)
--- NOTE | 2017-08-07 23:25 | CT ---
DATE OF SERVICE: 08/07/2017 CLINICAL DATA: Vaginal bleeding. UNENHANCED ABDOMEN AND PELVIC CT: Multislice acquisition through the abdomen and pelvis without IV or oral contrast was performed. No priors. Motion artifact degrades image quality. There are small bilateral pleural effusions. There are mild atelectatic changes in the dependent portion of both lung bases. The unenhanced liver appears normal. The gallbladder appears normal. The spleen appears normal. The pancreas appears normal. There is soft tissue fullness of the left adrenal gland suggesting adrenal hyperplasia. The right adrenal appears normal. There is a small low-density lesion in the upper pole of the left kidney most likely representing a cyst. There is a large oval shaped near fluid density lesion within the lower pole of the left kidney most likely representing a benign cyst. It measures 11.6 cm in its maximum axial dimension. Ultrasound or a dedicated hepatic CT with contrast enhancement is recommended to confirm that it is a cyst. No nephrocalcinosis or nephrolithiasis. No hydronephrosis or hydroureter. There is a Marshall catheter within the bladder. The bladder is decompressed. It appears grossly normal. No bladder calculi. The cervix is prominent in size and heterogeneous. The uterus appears normal. The appendix is not dilated. No evidence of appendicitis. There is a gas filled structure projecting from the third portion of the duodenum most likely representing a duodenal diverticulum. No free air. No free fluid. No dilated loops of bowel. No adenopathy. No aortic aneurysm. IMPRESSION: 1. Prominent cervix. [employer] consultation and direct visualization is recommended to exclude cervical pathology. 2. Large low-density lesion in left kidney most likely representing a cyst. Hepatic ultrasound or a dedicated hepatic CT with contrast enhancement is recommended to completely evaluate this. 3. Other findings as discussed above. [id number] [facility]
[2017-08-08] MEDS: Albuterol/Ipratropium 3.0-0.5 MG/3 ML Neb Soln INH SCH ×2 (05:50→11:05)
[2017-08-08] MEDS: Omeprazole 40 MG Cap.CR PO SCH (06:03)
[2017-08-08] MEDS: Levothyroxine 88 MCG Tab PO SCH (06:03)
[2017-08-08] MEDS: Multivitamin, Childrens Tab.Chew PO SCH (07:48)
[2017-08-08] MEDS: Ferrous Sulfate 325 MG Tab PO SCH (07:48)
[2017-08-08] MEDS: Azithromycin 250 MG Tab PO SCH (07:48)
[2017-08-08] MEDS: Furosemide 40 MG Tab PO SCH (07:48)
[2017-08-08] MEDS: Zinc (Zinc Gluconate) 50 MG Tab PO SCH (07:48)
[2017-08-08] MEDS: Benzonatate 100 MG Cap PO SCH (07:48)
[2017-08-08] MEDS: Ascorbic Acid 500 MG Tab PO SCH (07:49)
[2017-08-08] MEDS: Potassium Chloride 20 MEQ Tab.ER PO SCH (07:49)
[2017-08-08] MEDS: Acetaminophen 500 MG Tab PO SCH (07:49)
[2017-08-08] MEDS: Lactobacillus Acidophilus/Lactobacillus Sporogenes (Probiotic) Tab PO SCH (07:49)
[2017-08-08] MEDS: Insulin Detemir 100 Units/ML 3 ML Pen SUBCUT SCH (07:50)
[2017-08-08] MEDS: CALCIUM HMB PO SCH (07:51)
[2017-08-08] MEDS: ARGININE PO SCH (07:51)
[2017-08-08] MEDS: GLUTAMINE PO SCH (07:51)
[2017-08-08] MEDS: VICTOZA 1.2 MG SUBCUT SCH (07:55)
[2017-08-08] MEDS: Insulin Aspart 100 Units/ML 3 ML Pen SUBCUT SCH ×2 (07:55→11:34)
[2017-08-08] MEDS: Enoxaparin 80 MG/0.8 ML Syringe SUBCUT SCH (08:00)
[2017-08-08] MEDS: Sodium Chloride 0.45% 1,000 ML IV SCH (08:04)
[2017-08-08 08:15] VITALS: BP 129/64
[2017-08-08] MEDS: cefTRIAXone 1 GM in Sodium Chloride 0.9% 50 ML IV SCH (11:05)
--- NOTE | 2017-08-08 11:22 | PCM.PN ---
- General Info Date of Service: 08/07/17 Subjective Update: Patient alert, oriented and denies any concerns. Nursing note loss of blood from the vaginal area all over the bed that was not present on prior turning. Labs ordered with CT/Abd Pelvis. Patient denies any concerns or pelvic pain. Denies any shortness of breath, no chest pain, no abdominal pain. Patient has no appetite. Functional Status: Reports: Other (putnam) - Review of Systems General: Reports: Weakness HEENT: Reports: No Symptoms Pulmonary: Reports: No Symptoms Cardiovascular: Reports: No Symptoms Gastrointestinal: Reports: Decreased Appetite Genitourinary: Reports: No Symptoms Musculoskeletal: Reports: No Symptoms Skin: Reports: No Symptoms Neurological: Reports: Weakness Psychiatric: Reports: No Symptoms - Patient Data Vitals - Most Recent: Last Vital Signs Temp 35.9 C 08/08/17 08:00 Pulse 61 08/08/17 08:00 Resp 12 08/08/17 08:00 BP 129/64 08/08/17 08:00 Pulse Ox 91 L 08/08/17 08:00 Weight - Most Recent: 147.327 kg I&O - Last 24 Hours: Intake & Output 08/07/17 08/08/17 08/08/17 22:59 06:59 14:59 Intake Total 450 979 Output Total 450 550 Balance 0 429 Lab Results Last 24 Hours: Laboratory Results - last 24 hr 08/07/17 08/07/17 08/07/17 Range/Units 11:06 16:36 18:50 WBC 6.5 (4.0-11.0) K/uL RBC 4.31 (3.80-5.80) M/uL Hgb 13.7 (11.5-16.5) g/dL Hct 43.8 (37.0-47.0) % MCV 102 H (76-96) fL MCH 31.8 (27.0-32.0) pg MCHC 31.3 (31.0-35.0) g/dL RDW 16.7 H (11.0-16.0) % Plt Count 146 L (150-500) K/uL MPV 11.0 H (6.0-10.0) fL Neut % (Auto) 69.6 (45.0-70.0) % Lymph % (Auto) 20.0 (20.0-40.0) % Hardy % (Auto) 8.2 (3.0-10.0) % Eos % (Auto) 1.9 (1.0-5.0) % Baso % (Auto) 0.3 (0.0-0.5) % Neut # (Auto) 4.49 (2.00-7.50) K/uL Lymph # (Auto) 1.29 L (1.50-4.00) K/uL Hardy # (Auto) 0.53 (0.20-0.80) K/uL Eos # (Auto) 0.12 (0.04-0.40) K/uL Baso # (Auto) 0.02 (0.02-0.10) K/uL Whole Blood INR (1.0-3.5) Sodium (136-145) mmol/L Potassium (3.5-5.1) mmol/L Chloride (98-107) mmol/L Carbon Dioxide (21.0-32.0) mmol/L Anion Gap (5.0-15.0) mmol/L BUN (8-26) mg/dL Creatinine (0.55-1.02) mg/dL Est Cr Clr Drug Dosing mL/min Estimated GFR (MDRD) (>60) MLS/MIN BUN/Creatinine Ratio (6-25) Glucose (74-100) mg/dL POC Glucose 202 H 156 H (74-110) mg/dL Calcium (8.5-10.1) mg/dL Total Bilirubin (0.0-1.0) mg/dL AST (15-37) U/L ALT (12-78) U/L Alkaline Phosphatase (46-116) U/L Total Protein (6.4-8.2) g/dL Albumin (3.4-5.0) g/dL Globulin (2.2-4.2) g/dL Albumin/Globulin Ratio (0.8-2.0) 08/07/17 08/07/17 08/08/17 Range/Units 18:50 19:00 06:46 WBC (4.0-11.0) K/uL RBC (3.80-5.80) M/uL Hgb (11.5-16.5) g/dL Hct (37.0-47.0) % MCV (76-96) fL MCH (27.0-32.0) pg MCHC (31.0-35.0) g/dL RDW (11.0-16.0) % Plt Count (150-500) K/uL MPV (6.0-10.0) fL Neut % (Auto) (45.0-70.0) % Lymph % (Auto) (20.0-40.0) % Hardy % (Auto) (3.0-10.0) % Eos % (Auto) (1.0-5.0) % Baso % (Auto) (0.0-0.5) % Neut # (Auto) (2.00-7.50) K/uL Lymph # (Auto) (1.50-4.00) K/uL Hardy # (Auto) (0.20-0.80) K/uL Eos # (Auto) (0.04-0.40) K/uL Baso # (Auto) (0.02-0.10) K/uL Whole Blood INR 4.2 H (1.0-3.5) Sodium 147 H (136-145) mmol/L Potassium 4.4 D (3.5-5.1) mmol/L Chloride 101 (98-107) mmol/L Carbon Dioxide 37.6 H (21.0-32.0) mmol/L Anion Gap 12.8 (5.0-15.0) mmol/L BUN 27 H (8-26) mg/dL Creatinine 1.30 H (0.55-1.02) mg/dL Est Cr Clr Drug Dosing 32.61 mL/min Estimated GFR (MDRD) 40 L (>60) MLS/MIN BUN/Creatinine Ratio 20.8 (6-25) Glucose 262 H D (74-100) mg/dL POC Glucose 185 H (74-110) mg/dL Calcium 8.9 (8.5-10.1) mg/dL Total Bilirubin (0.0-1.0) mg/dL AST (15-37) U/L ALT (12-78) U/L Alkaline Phosphatase (46-116) U/L Total Protein (6.4-8.2) g/dL Albumin (3.4-5.0) g/dL Globulin (2.2-4.2) g/dL Albumin/Globulin Ratio (0.8-2.0) 08/08/17 08/08/17 Range/Units 07:45 07:45 WBC 9.4 D (4.0-11.0) K/uL RBC 4.17 (3.80-5.80) M/uL Hgb 13.8 (11.5-16.5) g/dL Hct 42.5 (37.0-47.0) % MCV 102 H (76-96) fL MCH 33.1 H (27.0-32.0) pg MCHC 32.5 (31.0-35.0) g/dL RDW 16.7 H (11.0-16.0) % Plt Count 147 L (150-500) K/uL MPV 10.9 H (6.0-10.0) fL Neut % (Auto) 61.4 (45.0-70.0) % Lymph % (Auto) 25.1 (20.0-40.0) % Hardy % (Auto) 9.5 (3.0-10.0) % Eos % (Auto) 2.3 (1.0-5.0) % Baso % (Auto) 1.7 H (0.0-0.5) % Neut # (Auto) 5.78 (2.00-7.50) K/uL Lymph # (Auto) 2.37 (1.50-4.00) K/uL Hardy # (Auto) 0.90 H (0.20-0.80) K/uL Eos # (Auto) 0.22 (0.04-0.40) K/uL Baso # (Auto) 0.16 H (0.02-0.10) K/uL Whole Blood INR (1.0-3.5) Sodium 145 (136-145) mmol/L Potassium 5.0 (3.5-5.1) mmol/L Chloride 102 (98-107) mmol/L Carbon Dioxide 35.8 H (21.0-32.0) mmol/L Anion Gap 12.2 (5.0-15.0) mmol/L BUN 27 H (8-26) mg/dL Creatinine 1.21 H (0.55-1.02) mg/dL Est Cr Clr Drug Dosing 35.04 mL/min Estimated GFR (MDRD) 43 L (>60) MLS/MIN BUN/Creatinine Ratio 22.3 (6-25) Glucose 179 H D (74-100) mg/dL POC Glucose (74-110) mg/dL Calcium 8.7 (8.5-10.1) mg/dL Total Bilirubin 0.6 D (0.0-1.0) mg/dL AST 62 H (15-37) U/L ALT 20 (12-78) U/L Alkaline Phosphatase 54 (46-116) U/L Total Protein 7.1 (6.4-8.2) g/dL Albumin 2.3 L (3.4-5.0) g/dL Globulin 4.8 H (2.2-4.2) g/dL Albumin/Globulin Ratio 0.5 L (0.8-2.0) Med Orders - Current: Current Medications Acetaminophen (Tylenol Extra Strength) 1,000 mg PO BID [facility] Last Admin: 08/08/17 07:49 Dose: 1,000 mg Albuterol/Ipratropium (Duoneb 3.0-0.5 Mg/3 Ml) 3 ml INH Q6H [facility] Last Admin: 08/08/17 11:05 Dose: 3 ml Ascorbic Acid (Vitamin C) 500 mg PO DAILY [facility] Last Admin: 08/08/17 07:49 Dose: 500 mg Azithromycin (Zithromax) 500 mg PO DAILY [facility] Last Admin: 08/08/17 07:48 Dose: 500 mg Benzonatate (Tessalon Perles) 200 mg PO TID [facility] Last Admin: 08/08/17 07:48 Dose: 200 mg Enoxaparin Sodium (Lovenox) 160 mg 1 mg/kg (160 mg) SUBCUT DAILY [facility] Last Admin: 08/08/17 08:00 Dose: Not Given Ferrous Sulfate (Ferrous Sulfate) 325 mg PO BID [facility] Last Admin: 08/08/17 07:48 Dose: 325 mg Furosemide (Lasix) 40 mg PO DAILY [facility] Last Admin: 08/08/17 07:48 Dose: 40 mg Furosemide (Lasix) 20 mg PO DAILY@1600 [facility] Last Admin: 08/07/17 16:27 Dose: 20 mg Ceftriaxone Sodium 1 gm/ (Sodium Chloride) 50 mls @ 200 mls/hr IV Q24H [facility] Last Admin: 08/08/17 11:05 Dose: 200 mls/hr Sodium Chloride (Sodium Chloride 0.45%) 1,000 mls @ 75 mls/hr IV ASDIRECTED [facility] Last Admin: 08/08/17 08:04 Dose: 75 mls/hr Insulin Aspart (Novolog) 0 unit SUBCUT TIDMEALS JEWEL PRN Reason: Protocol Last Admin: 08/08/17 07:55 Dose: Not Given Insulin Detemir (Levemir) 26 unit SUBCUT DAILY [facility] Last Admin: 08/08/17 07:50 Dose: 26 units Lactobacillus Acidophilus (Acidolphilus Extra Strength) 1 tab PO DAILY [facility] Last Admin: 08/08/17 07:49 Dose: 1 tab Levothyroxine Sodium (Synthroid) 88 mcg PO ACBREAKFAST [facility] Last Admin: 08/08/17 06:03 Dose: 88 mcg Morphine Sulfate (Morphine) 1 mg IVPUSH Q2H PRN PRN Reason: Dyspnea Last Admin: 08/06/17 19:51 Dose: 1 mg Multivitamins/Minerals/Vitamin C (Childrens Chewable Vitamin) 1 tab PO DAILY [facility] Last Admin: 08/08/17 07:48 Dose: 1 tab Non-Formulary Medication (Arginine/Glutamine/Calcium Hmb [[place]ingo Packet]) 1 each PO DAILY [facility] Last Admin: 08/08/17 07:51 Dose: Not Given Victoza 1.2mg 1.2 each SUBCUT DAILY [facility] Last Admin: 08/08/17 07:55 Dose: Not Given Omeprazole (Omeprazole) 40 mg PO ACBREAKFAST [facility] Last Admin: 08/08/17 06:03 Dose: 40 mg Potassium Chloride (Klor-Con M20) 20 meq PO DAILY [facility] Last Admin: 08/08/17 07:49 Dose: 20 meq Sodium Chloride (Saline Flush) 10 ml FLUSH ASDIRECTED PRN PRN Reason: Keep Vein Open Last Admin: 08/05/17 05:14 Dose: 10 ml Warfarin Sodium (Coumadin) 5 mg PO SuTuThSa@1800 [facility] Last Admin: 08/06/17 19:04 Dose: 5 mg Warfarin Sodium (Coumadin) 7.5 mg PO MOWEFR@1800 [facility] Last Admin: 08/07/17 17:48 Dose: 7.5 mg Zinc Gluconate (Zinc) 50 mg PO DAILY [facility] Last Admin: 08/08/17 07:48 Dose: 50 mg Discontinued Medications Azithromycin (Zithromax) Confirm Administered Dose 500 mg .ROUTE .STK-MED ONE Stop: 08/05/17 14:37 Last Admin: 08/05/17 14:47 Dose: 500 mg Furosemide (Lasix) 40 mg PO DAILY [facility] Furosemide (Lasix) 40 mg IVPUSH DAILY [facility] Last Admin: 08/04/17 07:47 Dose: 40 mg Furosemide (Lasix) Confirm Administered Dose 20 mg .ROUTE .STK-MED ONE Stop: 08/04/17 16:01 Last Admin: 08/04/17 16:04 Dose: 20 mg Furosemide (Lasix) 40 mg IVPUSH NOW ONE Stop: 08/07/17 17:42 Last Admin: 08/07/17 17:45 Dose: 40 mg Azithromycin 500 mg/ Sodium (Chloride) 250 mls @ 250 mls/hr IV Q24H [facility] Last Admin: 08/05/17 17:32 Dose: Not Given Insulin Glargine (Lantus Solostar) 26 units SUBCUT DAILY [facility] Last Admin: 08/05/17 10:54 Dose: Not Given Morphine Sulfate (Morphine) Confirm Administered Dose 2 mg .ROUTE .STK-MED ONE Stop: 08/06/17 19:37 Last Admin: 08/06/17 19:50 Dose: Not Given Non-Formulary Medication (L.Acidoph,Paracasei, B.Lactis [Probiotic]) 1 each PO 1200 [facility] Last Admin: 08/04/17 13:18 Dose: 1 each - Exam Quality Assessment: Supplemental Oxygen General: Alert, Oriented, Cooperative HEENT: Pupils Equal, Pupils Reactive, EOMI Neck: Supple Lungs: Clear to Auscultation, Normal Respiratory Effort Cardiovascular: Regular Rate, Regular Rhythm GI/Abdominal Exam: Normal Bowel Sounds, Soft, Non-Tender (Female) Exam: Vaginal Discharge, Other (difficult to palpate for cervical mass or lesion; bloody discharge from the vagina, unable to visualize acute bleeding) Neurological: No New Focal Deficit Psy/Mental Status: Alert, Normal Affect, Normal Mood - Problem List & Annotations (1) Palliative care patient SNOMED Code(s): 870930703 Code(s): Z51.5 - ENCOUNTER FOR PALLIATIVE CARE Status: Acute Priority: Medium Current Visit: Yes (2) Low oxygen saturation SNOMED Code(s): 887307890 Code(s): R79.81 - ABNORMAL BLOOD-GAS LEVEL Status: Acute Priority: High Current Visit: Yes (3) Right lower lobe pneumonia SNOMED Code(s): 470059934 Code(s): J18.1 - LOBAR PNEUMONIA, UNSPECIFIED ORGANISM Status: Acute Priority: High Current Visit: Yes Qualifiers: Pneumonia type: due to unspecified organism Qualified Code(s): J18.1 - Lobar pneumonia, unspecified organism (4) Diabetes mellitus type 2 SNOMED Code(s): 01870498 Code(s): E11.9 - TYPE 2 DIABETES MELLITUS WITHOUT COMPLICATIONS Status: Chronic Priority: High Current Visit: Yes Annotation/Comment:: 05-17-2017 Blood sugars monitored ac and hs. Novolog sliding scale utilized. Am blood sugar is 100. Appetite is good. continue with skin care and application of nystatin to skin folds. 05-18-17 Continue with ac and hs blodd sugar and sliding scale. FBS 138 today. continue with nystatin powder to skin folds, bid. (5) HTN, Benign hypertension SNOMED Code(s): 74358973 Code(s): I10 - ESSENTIAL (PRIMARY) HYPERTENSION Status: Chronic Priority : Medium Current Visit: Yes Annotation/Comment:: 09/23/2013 Blood pressure stable (6) snf resident SNOMED Code(s): 515126407 Code(s): Z59.3 - PROBLEMS RELATED TO LIVING IN RESIDENTIAL INSTITUTION Status: Chronic Priority: High Current Visit: Yes (7) Renal dysfunction Status: Chronic Priority: Medium Current Visit: Yes (8) Anemia SNOMED Code(s): 309772060 Code(s): D64.9 - ANEMIA, UNSPECIFIED Status: Resolved Current Visit: No Annotation/Comment:: 06/11/2014 Hgb improving but will give 2 more units today. Also to have lasix between units. (9) Lethargy SNOMED Code(s): 754504058 Code(s): R53.83 - OTHER FATIGUE Status: Chronic Priority: Medium Current Visit: Yes (10) Cervical mass SNOMED Code(s): 277293750 Code(s): N88.8 - OTHER SPECIFIED NONINFLAMMATORY DISORDERS OF CERVIX UTERI Status: Suspected Priority: High Current Visit: Yes (11) Postmenopausal vaginal bleeding SNOMED Code(s): 29606531 Code(s): N95.0 - POSTMENOPAUSAL BLEEDING Status: Acute Priority: High Current Visit: Yes Annotation/Comment:: Acute heavy bleeding from vagina - patient does have history of vaginal bleeding. - Problem List Review Problem List Initiated/Reviewed/Updated: Yes - My Orders Last 24 Hours: My Active Orders 08/08/17 08:00 Transvaginal Non OB [US] Routine 08/10/17 07:00 INR,PT,PROTHROMBIN TIME [COAG] Routine - Assessment Assessment:: Right lower lobe pneumonia - Plan Plan:: Pt is awake and alert. She does not appear lethargic or somnolence. She has been afebrile. Her SPO2 on 6 litre NC oxygen was 90%, Me and Nurse Shelby did make her cough and her SPO2 improved to 93 %. Incentive spirometer was brought into room, she did good Upto 1000cc on it few times and coughed. Will continue IV antibiotics. Patient needs is good pulmonary toileting. Needs to be on mucolytic agents like tesssalon or guaifenesin to help expectorate. Needs Duonebs to open up the airway. Needs Incentive spirometry to expand the lungs. This should be the main concern at this point. hence I am starting her on incentive spirometer exercises every 2 hr and also back on tessalon pearls.. 08/07/17 Patient is alert when awaken. She falls back asleep as soon as we are done talking. She denies any concerns and this may be her new baseline. We will continue current management of possible Pneumonia and possible UTI. Discussed plan of care with patient and patient understands and agrees with current management. F/u labs in AM. Patient reassessed on 08/07/[address]/ABd and Pelvis and labs. No changes in labs - stable. CT shows enlarged cervix, kidney cyst and adrenal hyperplasia. Continued vaginal bleeding with stable vitals and Hg. We will reassess in AM and if continued bleeding for further intervention after discussion with patient.
[2017-08-08] MEDS: Morphine 2 MG/ML Syringe IVPUSH PRN (11:40)
--- NOTE | 2017-08-08 11:42 | PCM.DCSUM1 ---
Discharge Summary - Hospital Course Brief History: This is a 77yo F initialy admitted for hypoxia and oxygen desaturation with altered mental status. She had a possible contributing factors of pneumonia and UTI. Patient has multiple co-morbidities that increased her length of stay with severe deconditioning, renal dysfunction, CHF and hypoxia. Patient developed acute postmenopausal vaginal bleeding on 08/07 and continued into 08/08. Patient is on Coumadin for chronic PE and was supratherapeutic. Coumadin is being held. - Discharge Data Discharge Date: 08/08/17 Discharge Disposition: DC/Tfer to Acute Hospital 02 Condition: Good - Discharge Diagnosis/Problem(s) (1) Palliative care patient SNOMED Code(s): 787566443 ICD Code: Z51.5 - ENCOUNTER FOR PALLIATIVE CARE Status: Acute Priority: Medium Current Visit: Yes (2) Low oxygen saturation SNOMED Code(s): 475501400 ICD Code: R79.81 - ABNORMAL BLOOD-GAS LEVEL Status: Acute Priority: High Current Visit: Yes (3) Right lower lobe pneumonia SNOMED Code(s): 574577427 ICD Code: J18.1 - LOBAR PNEUMONIA, UNSPECIFIED ORGANISM Status: Acute Priority: High Current Visit: Yes Qualifiers: Pneumonia type: due to unspecified organism Qualified Code(s): J18.1 - Lobar pneumonia, unspecified organism (4) Diabetes mellitus type 2 SNOMED Code(s): 04776026 ICD Code: E11.9 - TYPE 2 DIABETES MELLITUS WITHOUT COMPLICATIONS Status: Chronic Priority: High Current Visit: Yes Problem Details: 05-17-2017 Blood sugars monitored ac and hs. Novolog sliding scale utilized. Am blood sugar is 100. Appetite is good. continue with skin care and application of nystatin to skin folds. 05-18-17 Continue with ac and hs blodd sugar and sliding scale. FBS 138 today. continue with nystatin powder to skin folds, bid. (5) HTN, Benign hypertension SNOMED Code(s): 74530323 ICD Code: I10 - ESSENTIAL (PRIMARY) HYPERTENSION Status: Chronic Priority : Medium Current Visit: Yes Problem Details: 09/23/2013 Blood pressure stable (6) prison resident SNOMED Code(s): 772843728 ICD Code: Z59.3 - PROBLEMS RELATED TO LIVING IN RESIDENTIAL INSTITUTION Status: Chronic Priority: High Current Visit: Yes (7) Renal dysfunction Status: Chronic Priority: Medium Current Visit: Yes (8) Lethargy SNOMED Code(s): 098786386 ICD Code: R53.83 - OTHER FATIGUE Status: Chronic Priority: Medium Current Visit: Yes (9) Cervical mass SNOMED Code(s): 936209714 ICD Code: N88.8 - OTHER SPECIFIED NONINFLAMMATORY DISORDERS OF CERVIX UTERI Status: Suspected Priority: High Current Visit: Yes (10) Postmenopausal vaginal bleeding SNOMED Code(s): 63196891 ICD Code: N95.0 - POSTMENOPAUSAL BLEEDING Status: Acute Priority: High Current Visit: Yes Problem Details: Acute heavy bleeding from vagina - patient does have history of vaginal bleeding. (11) Morbid obesity with BMI of 50.0-59.9, adult SNOMED Code(s): 758617195 ICD Code: E66.01 - MORBID (SEVERE) OBESITY DUE TO EXCESS CALORIES; Z68.43 - BODY MASS INDEX (BMI) 50-59.9 , ADULT Status: Acute Current Visit: Yes - Discharge Plan Home Medications: Home Meds Arginine/Glutamine/Calcium Hmb [[place] Packet] 1 each PO DAILY 07/25/17 [History] Insulin Aspart [Novolog Flexpen] See Protocol SQ TIDMEALS 07/25/17 [History] L.acidoph,Paracasei, B.lactis [Probiotic] 1 each PO 1200 07/25/17 [History] Liraglutide [Victoza] 1.2 mg SUBCUT DAILY 07/25/17 [History] Multivitamins [Childrens Chewable Vitamin] 1 tab PO DAILY 07/25/17 [History] Warfarin Sodium [Coumadin] 7.5 mg PO MOWEFR@1800 07/25/17 [History] Acetaminophen [Tylenol Extra Strength] 1,000 mg PO BID tablet 07/26/17 [Rx] Ascorbic Acid [Vitamin C] 500 mg PO DAILY tablet 07/26/17 [Rx] Ferrous Sulfate 325 mg PO BID tablet 07/26/17 [Rx] Furosemide [Lasix] 40 mg PO DAILY tablet 07/26/17 [Rx] Insulin Glarg,Human.Rec.Analog [Lantus Solostar] 16 units SUBCUT QPM pen [Rx] Insulin Glarg,Human.Rec.Analog [Lantus Solostar] 26 units SUBCUT DAILY pen 05/03 [Rx] Levothyroxine [Synthroid] 88 mcg PO ACBREAKFAST tablet 07/26/17 [Rx] Nystatin [Nystop] 1 gm TOP BID bottle 07/26/17 [Rx] Polyethylene Glycol 3350 [MiraLAX] 17 gm PO BEDTIME packet 07/26/17 [Rx] Potassium Chloride [Klor-Con M20] 20 meq PO DAILY tab.er 07/26/17 [Rx] Pregabalin [Lyrica] 150 mg PO TID cap 07/26/17 [Rx] Sertraline [Zoloft] 100 mg PO DAILY tablet 07/26/17 [Rx] Simvastatin [Zocor] 20 mg PO BEDTIME tablet 07/26/17 [Rx] Warfarin [Coumadin] 5 mg PO SuTuThSa@1800 tablet 07/26/17 [Rx] Zinc Gluconate [Zinc] 50 mg PO DAILY tablet 07/26/17 [Rx] traMADol [Ultram] 50 mg PO BID tablet 07/26/17 [Rx] Albuterol/Ipratropium [DuoNeb 3.0-0.5 MG/3 ML] 3 ml INH Q6H 08/03/17 [History] Azithromycin [IJP: Azithromycin] 250 mg PO QPM 08/03/17 [History] Omeprazole 40 mg PO ACBREAKFAST 08/03/17 [History] Forms: ED Department Discharge Referrals: Roney Rios MD [Primary Care Provider] - - Discharge Summary/Plan Comment DC Time >30 min.: Yes Discharge Summary/Plan Comment: Discussed plan of care with on-call Dr. Castelan in [place]. Discussed prior schedule for biopsy and plan of care. Due to likely cervical neoplasm and due to patient's habitus and health it was decided that it would be best for patient to go to a tertiary center with Endoscopic Technician/Oncologist specialists. The closest [facility] will be [facility]. Called [facility] and discussed with physician line and consulted with Dr. Shell. Patient did want further intervention instead of conservative care at this time and discussed risks and options but patient would like the concerns dealt with and surgically if needed. Patient to be transferred to [facility] Endoscopic Technician/Onc services via BLS. - Patient Data Vitals - Most Recent: Last Vital Signs Temp 35.9 C 08/08/17 08:00 Pulse 61 08/08/17 08:00 Resp 12 08/08/17 08:00 BP 129/64 08/08/17 08:00 Pulse Ox 91 L 08/08/17 08:00 Weight - Most Recent: 147.327 kg I&O - Last 24 hours: Intake & Output 08/07/17 08/08/17 08/08/17 22:59 06:59 14:59 Intake Total 450 979 Output Total 450 550 Balance 0 429 Lab Results - Last 24 hrs: Laboratory Results - last 24 hr 08/07/17 08/07/17 08/07/17 Range/Units 11:06 16:36 18:50 WBC 6.5 (4.0-11.0) K/uL RBC 4.31 (3.80-5.80) M/uL Hgb 13.7 (11.5-16.5) g/dL Hct 43.8 (37.0-47.0) % MCV 102 H (76-96) fL MCH 31.8 (27.0-32.0) pg MCHC 31.3 (31.0-35.0) g/dL RDW 16.7 H (11.0-16.0) % Plt Count 146 L (150-500) K/uL MPV 11.0 H (6.0-10.0) fL Neut % (Auto) 69.6 (45.0-70.0) % Lymph % (Auto) 20.0 (20.0-40.0) % [place] % (Auto) 8.2 (3.0-10.0) % Eos % (Auto) 1.9 (1.0-5.0) % Baso % (Auto) 0.3 (0.0-0.5) % Neut # (Auto) 4.49 (2.00-7.50) K/uL Lymph # (Auto) 1.29 L (1.50-4.00) K/uL [place] # (Auto) 0.53 (0.20-0.80) K/uL Eos # (Auto) 0.12 (0.04-0.40) K/uL Baso # (Auto) 0.02 (0.02-0.10) K/uL Whole Blood INR (1.0-3.5) Sodium (136-145) mmol/L Potassium (3.5-5.1) mmol/L Chloride (98-107) mmol/L Carbon Dioxide (21.0-32.0) mmol/L Anion Gap (5.0-15.0) mmol/L BUN (8-26) mg/dL Creatinine (0.55-1.02) mg/dL Est Cr Clr Drug Dosing mL/min Estimated GFR (MDRD) (>60) MLS/MIN BUN/Creatinine Ratio (6-25) Glucose (74-100) mg/dL POC Glucose 202 H 156 H (74-110) mg/dL Calcium (8.5-10.1) mg/dL Total Bilirubin (0.0-1.0) mg/dL AST (15-37) U/L ALT (12-78) U/L Alkaline Phosphatase (46-116) U/L Total Protein (6.4-8.2) g/dL Albumin (3.4-5.0) g/dL Globulin (2.2-4.2) g/dL Albumin/Globulin Ratio (0.8-2.0) 08/07/17 08/07/17 08/08/17 Range/Units 18:50 19:00 06:46 WBC (4.0-11.0) K/uL RBC (3.80-5.80) M/uL Hgb (11.5-16.5) g/dL Hct (37.0-47.0) % MCV (76-96) fL MCH (27.0-32.0) pg MCHC (31.0-35.0) g/dL RDW (11.0-16.0) % Plt Count (150-500) K/uL MPV (6.0-10.0) fL Neut % (Auto) (45.0-70.0) % Lymph % (Auto) (20.0-40.0) % [place] % (Auto) (3.0-10.0) % Eos % (Auto) (1.0-5.0) % Baso % (Auto) (0.0-0.5) % Neut # (Auto) (2.00-7.50) K/uL Lymph # (Auto) (1.50-4.00) K/uL [place] # (Auto) (0.20-0.80) K/uL Eos # (Auto) (0.04-0.40) K/uL Baso # (Auto) (0.02-0.10) K/uL Whole Blood INR 4.2 H (1.0-3.5) Sodium 147 H (136-145) mmol/L Potassium 4.4 D (3.5-5.1) mmol/L Chloride 101 (98-107) mmol/L Carbon Dioxide 37.6 H (21.0-32.0) mmol/L Anion Gap 12.8 (5.0-15.0) mmol/L BUN 27 H (8-26) mg/dL Creatinine 1.30 H (0.55-1.02) mg/dL Est Cr Clr Drug Dosing 32.61 mL/min Estimated GFR (MDRD) 40 L (>60) MLS/MIN BUN/Creatinine Ratio 20.8 (6-25) Glucose 262 H D (74-100) mg/dL POC Glucose 185 H (74-110) mg/dL Calcium 8.9 (8.5-10.1) mg/dL Total Bilirubin (0.0-1.0) mg/dL AST (15-37) U/L ALT (12-78) U/L Alkaline Phosphatase (46-116) U/L Total Protein (6.4-8.2) g/dL Albumin (3.4-5.0) g/dL Globulin (2.2-4.2) g/dL Albumin/Globulin Ratio (0.8-2.0) 08/08/17 08/08/17 Range/Units 07:45 07:45 WBC 9.4 D (4.0-11.0) K/uL RBC 4.17 (3.80-5.80) M/uL Hgb 13.8 (11.5-16.5) g/dL Hct 42.5 (37.0-47.0) % MCV 102 H (76-96) fL MCH 33.1 H (27.0-32.0) pg MCHC 32.5 (31.0-35.0) g/dL RDW 16.7 H (11.0-16.0) % Plt Count 147 L (150-500) K/uL MPV 10.9 H (6.0-10.0) fL Neut % (Auto) 61.4 (45.0-70.0) % Lymph % (Auto) 25.1 (20.0-40.0) % [place] % (Auto) 9.5 (3.0-10.0) % Eos % (Auto) 2.3 (1.0-5.0) % Baso % (Auto) 1.7 H (0.0-0.5) % Neut # (Auto) 5.78 (2.00-7.50) K/uL Lymph # (Auto) 2.37 (1.50-4.00) K/uL [place] # (Auto) 0.90 H (0.20-0.80) K/uL Eos # (Auto) 0.22 (0.04-0.40) K/uL Baso # (Auto) 0.16 H (0.02-0.10) K/uL Whole Blood INR (1.0-3.5) Sodium 145 (136-145) mmol/L Potassium 5.0 (3.5-5.1) mmol/L Chloride 102 (98-107) mmol/L Carbon Dioxide 35.8 H (21.0-32.0) mmol/L Anion Gap 12.2 (5.0-15.0) mmol/L BUN 27 H (8-26) mg/dL Creatinine 1.21 H (0.55-1.02) mg/dL Est Cr Clr Drug Dosing 35.04 mL/min Estimated GFR (MDRD) 43 L (>60) MLS/MIN BUN/Creatinine Ratio 22.3 (6-25) Glucose 179 H D (74-100) mg/dL POC Glucose (74-110) mg/dL Calcium 8.7 (8.5-10.1) mg/dL Total Bilirubin 0.6 D (0.0-1.0) mg/dL AST 62 H (15-37) U/L ALT 20 (12-78) U/L Alkaline Phosphatase 54 (46-116) U/L Total Protein 7.1 (6.4-8.2) g/dL Albumin 2.3 L (3.4-5.0) g/dL Globulin 4.8 H (2.2-4.2) g/dL Albumin/Globulin Ratio 0.5 L (0.8-2.0) Med Orders - Current: Current Medications Acetaminophen (Tylenol Extra Strength) 1,000 mg PO BID [facility] Last Admin: 08/08/17 07:49 Dose: 1,000 mg Albuterol/Ipratropium (Duoneb 3.0-0.5 Mg/3 Ml) 3 ml INH Q6H [facility] Last Admin: 08/08/17 11:05 Dose: 3 ml Ascorbic Acid (Vitamin C) 500 mg PO DAILY [facility] Last Admin: 08/08/17 07:49 Dose: 500 mg Azithromycin (Zithromax) 500 mg PO DAILY [facility] Last Admin: 08/08/17 07:48 Dose: 500 mg Benzonatate (Tessalon Perles) 200 mg PO TID [facility] Last Admin: 08/08/17 07:48 Dose: 200 mg Enoxaparin Sodium (Lovenox) 160 mg 1 mg/kg (160 mg) SUBCUT DAILY [facility] Last Admin: 08/08/17 08:00 Dose: Not Given Ferrous Sulfate (Ferrous Sulfate) 325 mg PO BID [facility] Last Admin: 08/08/17 07:48 Dose: 325 mg Furosemide (Lasix) 40 mg PO DAILY [facility] Last Admin: 08/08/17 07:48 Dose: 40 mg Furosemide (Lasix) 20 mg PO DAILY@1600 [facility] Last Admin: 08/07/17 16:27 Dose: 20 mg Ceftriaxone Sodium 1 gm/ (Sodium Chloride) 50 mls @ 200 mls/hr IV Q24H [facility] Last Admin: 08/08/17 11:05 Dose: 200 mls/hr Sodium Chloride (Sodium Chloride 0.45%) 1,000 mls @ 75 mls/hr IV ASDIRECTED [facility] Last Admin: 08/08/17 08:04 Dose: 75 mls/hr Insulin Aspart (Novolog) 0 unit SUBCUT TIDMEALS [facility] PRN Reason: Protocol Last Admin: 08/08/17 07:55 Dose: Not Given Insulin Detemir (Levemir) 26 unit SUBCUT DAILY [facility] Last Admin: 08/08/17 07:50 Dose: 26 units Lactobacillus Acidophilus (Acidolphilus Extra Strength) 1 tab PO DAILY [facility] Last Admin: 08/08/17 07:49 Dose: 1 tab Levothyroxine Sodium (Synthroid) 88 mcg PO ACBREAKFAST [facility] Last Admin: 08/08/17 06:03 Dose: 88 mcg Morphine Sulfate (Morphine) 1 mg IVPUSH Q2H PRN PRN Reason: Dyspnea Last Admin: 08/06/17 19:51 Dose: 1 mg Multivitamins/Minerals/Vitamin C (Childrens Chewable Vitamin) 1 tab PO DAILY [facility] Last Admin: 08/08/17 07:48 Dose: 1 tab Non-Formulary Medication (Arginine/Glutamine/Calcium Hmb [[place]ingo Packet]) 1 each PO DAILY [facility] Last Admin: 08/08/17 07:51 Dose: Not Given Victoza 1.2mg 1.2 each SUBCUT DAILY [facility] Last Admin: 08/08/17 07:55 Dose: Not Given Omeprazole (Omeprazole) 40 mg PO ACBREAKFAST [facility] Last Admin: 08/08/17 06:03 Dose: 40 mg Potassium Chloride (Klor-Con M20) 20 meq PO DAILY [facility] Last Admin: 08/08/17 07:49 Dose: 20 meq Sodium Chloride (Saline Flush) 10 ml FLUSH ASDIRECTED PRN PRN Reason: Keep Vein Open Last Admin: 08/05/17 05:14 Dose: 10 ml Warfarin Sodium (Coumadin) 5 mg PO SuTuThSa@1800 [facility] Last Admin: 08/06/17 19:04 Dose: 5 mg Warfarin Sodium (Coumadin) 7.5 mg PO MOWEFR@1800 [facility] Last Admin: 08/07/17 17:48 Dose: 7.5 mg Zinc Gluconate (Zinc) 50 mg PO DAILY [facility] Last Admin: 08/08/17 07:48 Dose: 50 mg Discontinued Medications Azithromycin (Zithromax) Confirm Administered Dose 500 mg .ROUTE .STK-MED ONE Stop: 08/05/17 14:37 Last Admin: 08/05/17 14:47 Dose: 500 mg Furosemide (Lasix) 40 mg PO DAILY [facility] Furosemide (Lasix) 40 mg IVPUSH DAILY [facility] Last Admin: 08/04/17 07:47 Dose: 40 mg Furosemide (Lasix) Confirm Administered Dose 20 mg .ROUTE .STK-MED ONE Stop: 08/04/17 16:01 Last Admin: 08/04/17 16:04 Dose: 20 mg Furosemide (Lasix) 40 mg IVPUSH NOW ONE Stop: 08/07/17 17:42 Last Admin: 08/07/17 17:45 Dose: 40 mg Azithromycin 500 mg/ Sodium (Chloride) 250 mls @ 250 mls/hr IV Q24H [facility] Last Admin: 08/05/17 17:32 Dose: Not Given Insulin Glargine (Lantus Solostar) 26 units SUBCUT DAILY [facility] Last Admin: 08/05/17 10:54 Dose: Not Given Morphine Sulfate (Morphine) Confirm Administered Dose 2 mg .ROUTE .STK-MED ONE Stop: 08/06/17 19:37 Last Admin: 08/06/17 19:50 Dose: Not Given Non-Formulary Medication (L.Acidoph,Paracasei, B.Lactis [Probiotic]) 1 each PO 1200 [facility] Last Admin: 08/04/17 13:18 Dose: 1 each *Q Meaningful Use (DIS) - VTE *Q VTE Criteria *Q: - Stroke *Q Stroke Criteria *Q: - AMI *Q AMI Criteria *Q:
--- NOTE | 2017-08-08 18:00 | US ---
DATE OF SERVICE: 08/08/17 CLINICAL DATA: Cervical Mass PELVIC ULTRASOUND: A limited exam was performed to evaluate the cervix. A transvaginal exam was performed. The cervix does appear to be prominent in size. It measures 2.6 x 1.7 x 2.4 cm. It does have heterogeneous echotexture. Its external margins are well defined. Cervical pathology cannot be excluded. T[employer]ER consultation is recommended. [id number] MTDD
== END 2017-08-08 11:45 | DRG 194 ==
LOC: LB.ED 09:48 → LB.MS 11:37 → OBSVTOIN 08-04 11:54
PROVIDERS: ADMIT Family Medicine; ATTEND Family Medicine
DX: J18.1 Lobar pneumonia, unspecified organism (principal); I13.0 Hypertensive heart and chronic kidney disease with heart failure and stage 1 through stage 4 chronic kidney disease, or unspecified chronic kidney disease; E87.0 Hyperosmolality and hypernatremia; Z68.43 Body mass index [BMI] 50.0-59.9, adult; N39.0 Urinary tract infection, site not specified; R09.02 Hypoxemia; N18.9 Chronic kidney disease, unspecified; I50.9 Heart failure, unspecified; E11.22 Type 2 diabetes mellitus with diabetic chronic kidney disease; Z66 Do not resuscitate; Z51.5 Encounter for palliative care; Z86.718 Personal history of other venous thrombosis and embolism; E03.9 Hypothyroidism, unspecified; R06.5 Mouth breathing; E66.01 Morbid (severe) obesity due to excess calories; R50.9 Fever, unspecified; R40.0 Somnolence; Z79.4 Long term (current) use of insulin; D64.9 Anemia, unspecified; N95.0 Postmenopausal bleeding; R79.1 Abnormal coagulation profile; F32.9 Major depressive disorder, single episode, unspecified; M19.90 Unspecified osteoarthritis, unspecified site; K21.9 Gastro-esophageal reflux disease without esophagitis; H54.7 Unspecified visual loss; H91.90 Unspecified hearing loss, unspecified ear; Z88.6 Allergy status to analgesic agent; Z88.0 Allergy status to penicillin; Z79.01 Long term (current) use of anticoagulants
CPT/HCPCS: 36415 ×2; 80053 ×2; 81001; 82962 ×2; 83880; 84443; 85025 ×2; 87040 ×2; 87086; 96365; 96372 ×2; 96375; 99285; A9270 ×7; J0456; J0696; J1650 ×2; J1940 ×2; J3490 ×2; J7050 ×2; J7620 ×4; 74176; 76830; 80048; 85610; 87088; 87186; 96361; 96367; 96376; 99220; A0425; A0429; G0378; J2270

== ENCOUNTER → 2019-05-31 | Outpatient (CLI) | payer MEDICARE | LOC: LB.CC 10:03 | PROVIDERS: ATTEND Family Medicine | DX: Z51.81 Encounter for therapeutic drug level monitoring (principal); Z79.01 Long term (current) use of anticoagulants | CPT/HCPCS: 85610 ==

== ENCOUNTER 2020-02-22 16:06 | Emergency (ER) | payer MEDICARE ==
[2020-02-22 16:27] VITALS: BP 129/77; PULSE 94
--- NOTE | 2020-02-22 17:03 | EDM.PDOC ---
ED HPI GENERAL MEDICAL PROBLEM - General Chief Complaint: General Stated Complaint: UTI Time Seen by Provider: 02/22/20 16:50 Source of Information: Reports: Patient, Long-Term Records - History of Present Illness Onset: Today Onset Date: 02/22/20 Onset Time: 08:00 Improves with: Reports: None Worsens with: Reports: None Associated Symptoms: Reports: Other ("I just feel bad") - Related Data Allergies Allergy/AdvReac Type Severity Reaction Status Date / Time aspirin Allergy Nausea and Verified 08/02/17 20:59 Vomiting Penicillins Allergy Rash Verified 08/02/17 20:59 Home Meds: Home Meds Arginine/Glutamine/Calcium Hmb [[place] Packet] 1 each PO DAILY 07/25/17 [History] Insulin Aspart [Novolog Flexpen] See Protocol SQ TIDMEALS 07/25/17 [History] L.acidoph,Paracasei, B.lactis [Probiotic] 1 each PO 1200 07/25/17 [History] Liraglutide [Victoza] 1.2 mg SUBCUT DAILY 07/25/17 [History] Multivitamins [Childrens Chewable Vitamin] 1 tab PO DAILY 07/25/17 [History] Warfarin Sodium [Coumadin] 7.5 mg PO MOWEFR@1800 07/25/17 [History] Acetaminophen [Tylenol Extra Strength] 1,000 mg PO BID tablet 07/26/17 [Rx] Ascorbic Acid [Vitamin C] 500 mg PO DAILY tablet 07/26/17 [Rx] Ferrous Sulfate 325 mg PO BID tablet 07/26/17 [Rx] Furosemide [Lasix] 40 mg PO DAILY tablet 07/26/17 [Rx] Insulin Glarg,Human.Rec.Analog [Lantus Solostar] 16 units SUBCUT QPM pen 07/26/17 [Rx] Insulin Glarg,Human.Rec.Analog [Lantus Solostar] 26 units SUBCUT DAILY pen 07/26/17 [Rx] Levothyroxine [Synthroid] 88 mcg PO ACBREAKFAST tablet 07/26/17 [Rx] Nystatin [Nystop] 1 gm TOP BID bottle 07/26/17 [Rx] Polyethylene Glycol 3350 [MiraLAX] 17 gm PO BEDTIME packet 07/26/17 [Rx] Potassium Chloride [Klor-Con M20] 20 meq PO DAILY tab.er 07/26/17 [Rx] Pregabalin [Lyrica] 150 mg PO TID cap 07/26/17 [Rx] Sertraline [Zoloft] 100 mg PO DAILY tablet 07/26/17 [Rx] Simvastatin [Zocor] 20 mg PO BEDTIME tablet 07/26/17 [Rx] Warfarin [Coumadin] 5 mg PO SuTuThSa@1800 tablet 07/26/17 [Rx] Zinc Gluconate [Zinc] 50 mg PO DAILY tablet 07/26/17 [Rx] traMADol [Ultram] 50 mg PO BID tablet 07/26/17 [Rx] Albuterol/Ipratropium [DuoNeb 3.0-0.5 MG/3 ML] 3 ml INH Q6H 08/03/17 [History] Azithromycin [IJP: Azithromycin] 250 mg PO QPM 08/03/17 [History] Omeprazole 40 mg PO ACBREAKFAST 08/03/17 [History] cephALEXin [Cephalexin] 500 mg PO TID 10 Days capsule 02/22/20 [Rx] Past Medical History HEENT History: Reports: Hard of Hearing, Impaired Vision Cardiovascular History: Reports: Heart Failure, Hypertension Respiratory History: Reports: COPD Gastrointestinal History: Reports: GERD Genitourinary History: Reports: Chronic Renal Insuffiency [employer]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[employer]ER History: Reports: Musculoskeletal History: Reports: Arthritis Psychiatric History: Reports: Depression Endocrine/Metabolic History: Reports: Diabetes, Type II Hematologic History: Reports: Blood Transfusion(s) Dermatologic History: Reports: Other (See Below) Other Dermatologic History: reddened area under breasts and abdominal fold - Infectious Disease History Infectious Disease History: Reports: Chicken Pox Social & Family History - Family History Family Medical History: Noncontributory - Caffeine Use Caffeine Use: Reports: Coffee - Living Situation & Occupation Living situation: Reports: , Extended Care Facility Occupation: Retired ED ROS GENERAL - Review of Systems Review Of Systems: See Below Constitutional: Reports: Malaise HEENT: Reports: No Symptoms Respiratory: Reports: No Symptoms (denies SOB. ) Cardiovascular: Reports: No Symptoms : Reports: Other (indwelling cath, sediment noted in tubing) Skin: Reports: No Symptoms ED EXAM, GENERAL - Physical Exam Exam: See Below Respiratory/Chest: Wheezing, Other Course - Vital Signs Last Recorded V/S: Last Vital Signs Temp 98.2 F 02/22/20 16:23 Pulse 94 02/22/20 16:23 Resp 16 02/22/20 16:23 BP 129/77 02/22/20 16:23 Pulse Ox 89 L 02/22/20 16:23 - Orders/Labs/Meds Orders: Active Orders 24 hr Category Date Time Status RT Aerosol Therapy [RC] ASDIRECTED Care 02/22/20 17:41 Active Chest 1V Frontal [CR] Stat Exams 02/22/20 16:19 Taken CULTURE URINE [RM] Stat Lab 02/22/20 16:28 Ordered Albuterol/Ipratropium [DuoNeb 3.0-0.5 MG/3 ML] Med 02/22/20 17:45 Active 3 ml NEB Q4H cephALEXin [Keflex] Med 02/22/20 17:50 Once 500 mg PO ONETIME ONE Medication Orders Albuterol/Ipratropium (Duoneb 3.0-0.5 Mg/3 Ml) 3 ml NEB Q4H [facility] Labs: Laboratory Tests 02/22/20 02/22/20 Range/Units 16:50 Unknown Urine Color Yellow Urine Appearance Cloudy (CLEAR) Urine pH 8.5 H (5.0-8.0) Ur Specific [place] 1.015 (1.003-1.030) Urine Protein 30 H (NEGATIVE) mg/dL Urine Glucose (UA) Negative (NEGATIVE) mg/dL Urine Ketones Negative (NEGATIVE) mg/dL Urine Occult Blood Small H (NEGATIVE) Urine Nitrite Positive H (NEGATIVE) Urine Bilirubin Negative (NEGATIVE) Urine Urobilinogen 0.2 (0.2-1.0) E.U./dL Ur Leukocyte Esterase Small H (NEGATIVE) Urine RBC 0-5 H /HPF Urine WBC 50-75 H /HPF Triple Phos Crystals Many /HPF Amorphous Sediment Many /HPF Urine Bacteria Few /HPF COVID-19 (POONAM) Negative Meds: Medications Generic Name Dose Route Start Last Admin Trade Name Freq PRN Reason Stop Dose Admin Albuterol/Ipratropium 3 ml 02/22/20 17:45 Duoneb 3.0-0.5 Mg/3 Ml NEB Q4H [facility] Departure - Departure Time of Disposition: 17:51 Disposition: Home, Self-Care 01 Condition: Fair Clinical Impression: UTI, Urinary tract infectious disease - Discharge Information *PRESCRIPTION DRUG MONITORING PROGRAM REVIEWED*: Not Applicable *COPY OF PRESCRIPTION DRUG MONITORING REPORT IN PATIENT HARSH: Not Applicable Prescriptions: cephALEXin [Cephalexin] 500 mg PO TID 10 Days capsule Instructions: Antibiotic Medicine, Adult, [id number], Urinary Tract Infection, Adult Forms: ED Department Discharge Sepsis Event Note (ED) - Evaluation Sepsis Screening Result: No Definite Risk - Focused Exam Vital Signs: Vital Signs Temp Pulse Resp BP Pulse Ox 02/22/20 16:23 98.2 F 94 16 129/77 89 L - My Orders Last 24 Hours: My Active Orders 02/22/20 16:19 Chest 1V Frontal [CR] Stat 02/22/20 16:28 CULTURE URINE [RM] Stat 02/22/20 17:41 RT Aerosol Therapy [RC] ASDIRECTED 02/22/20 17:45 Albuterol/Ipratropium [DuoNeb 3.0-0.5 MG/3 ML] 3 ml NEB Q4H 02/22/20 17:50 cephALEXin [Keflex] 500 mg PO ONETIME ONE - Assessment/Plan Last 24 Hours: My Active Orders 02/22/20 16:19 Chest 1V Frontal [CR] Stat 02/22/20 16:28 CULTURE URINE [RM] Stat 02/22/20 17:41 RT Aerosol Therapy [RC] ASDIRECTED 02/22/20 17:45 Albuterol/Ipratropium [DuoNeb 3.0-0.5 MG/3 ML] 3 ml NEB Q4H 02/22/20 17:50 cephALEXin [Keflex] 500 mg PO ONETIME ONE
[2020-02-22] MEDS ORDERED: Albuterol/Ipratropium 3.0-0.5 MG/3 ML Neb Soln NEB SCH (17:45)
[2020-02-22] MEDS ORDERED: Cephalexin 500 MG Cap PO ONE (17:50)
--- NOTE | 2020-02-25 05:58 | CR ---
Date of Service: 02/22/20 [facility] Data: wheezing AP CHEST: No priors. The patient has taken a poor inspiration. The heart is enlarged. The aorta is ectatic. There is prominence of the proximal pulmonary arteries bilaterally suggesting pulmonary hypertension. There is minimal increased density in the left lung base adjacent to the left hemidiaphragm consistent with basilar atelectasis or infiltrate. There is blunting of the left costophrenic angle suggesting a small left pleural effusion. The lungs are otherwise clear. No pneumothorax. [id number] [facility]
== END 2020-02-22 18:15 ==
LOC: LB.ED 16:06
DX: N39.0 Urinary tract infection, site not specified (principal); I13.0 Hypertensive heart and chronic kidney disease with heart failure and stage 1 through stage 4 chronic kidney disease, or unspecified chronic kidney disease; E11.22 Type 2 diabetes mellitus with diabetic chronic kidney disease; N18.9 Chronic kidney disease, unspecified; I50.9 Heart failure, unspecified; F32.9 Major depressive disorder, single episode, unspecified; K21.9 Gastro-esophageal reflux disease without esophagitis; Z88.0 Allergy status to penicillin; Z88.8 Allergy status to other drugs, medicaments and biological substances; Z79.4 Long term (current) use of insulin; Z79.899 Other long term (current) drug therapy; Z20.828 Contact with and (suspected) exposure to other viral communicable diseases
CPT/HCPCS: 71045; 81001; 87086; 87088; 87186; 99284; A9270; U0002; 99283; J7620-GY

== ENCOUNTER 2020-05-12 17:52 | Emergency (ER) | payer MEDICARE ==
[2020-05-12 21:03] VITALS: BP 136/45
[2020-05-12 21:04] VITALS: PULSE 84
--- NOTE | 2020-05-12 22:20 | ER ---
HPI: An 80-year-old shelter resident who was brought to the emergency room with complaints of weakness and a severely low hemoglobin. Labs were done this afternoon resulting in a hemoglobin of 5.4. The patient started having problems last Monday when she had a hemoglobin of over 22. She had been taking Coumadin I believe for a PE, which is not new. As of Monday, they stopped the Coumadin and gave her vitamin K for 2 days. The patient has had a lot of blood in her Marshall catheter bag and they repeated labs today which resulted in a hemoglobin of 5.4; hematocrit 18.6; platelets are 440, normal. The INR is again 2.1. The patient has history of CHF, type 2 diabetes, possibly uterine cancer per shelter staff. She is insulin dependent. She has also been recently on antibiotics for UTI. OBJECTIVE: GENERAL APPEARANCE: The patient is awake, she is pale. No respiratory distress. She is not coughing. VITAL SIGNS: Initially revealed a blood pressure of 129/45, pulse 100, O2 sats 96% on 3 L of O2, temp 99.5. GI: Examining the patient's torso reveals a morbidly obese lady. She has some faint bruising on the left side of the abdomen, and with palpation, there is firmness that radiates into the left upper quadrant. Bowel sounds are present, but hypoactive. LUNGS: Reveals reduced air exchange throughout the lung velez, but I do not hear any rales, wheezes, or rhonchi. SKIN: Warm and dry. ED COURSE: At this point, I consulted with the hospitalist in [place] or [place] about transferring the patient. They recommended further reevaluation that included a COVID test which is negative. Type and screen testing revealed no antibodies, which was a concern. Chest x-ray shows left basilar atelectasis or possibly pneumonia and a CT of the abdomen and pelvis reveals a 15 cm mass. Radiology did call consulted me person to person. He feels this is a hematoma that involves the retroperitoneum of the left kidney displacing the left kidney. He felt it was an episode of multiple bleeding episodes, not just one acute bleed, but of course there is acute bleeding as well. DIAGNOSIS: Acute renal bleed resulting in severe anemia. TREATMENT PLAN: At this point, we started 1 unit of blood. I did contact the hospitalist at [facility] once again, and he declined taking the patient stating that she needed a higher level of care. I then consulted [facility] in [place], talking to Dr. Fofana, who accepted the patient. She will be transferred by [facility] to their facility. She is leaving our facility at approximately 9:35 p.m. Last vital signs were, blood pressure 136/45, pulse ranging between 100 and 120, respirations 17, O2 sats are 100% now on a mask with a non- rebreather due to the patient slightly desatting at times. She has not been in any respiratory distress. She has not been coughing since I have seen her. CONDITION UPON DISCHARGE: Fair. CRS/MODL /[id number]
--- NOTE | 2020-05-13 08:54 | CR ---
DATE OF SERVICE: 05/12/20 CLINICAL DATA: Fever - elevated WBC. AP CHEST: Comparison is made to a prior exam dated 02/22/20. The patient has taken a very poor inspiration. The heart is enlarged. It is probably accentuated by the poor inspiration. The aortic arch appears aneurysmal. It measures 5.3 cm in diameter. There is increased density in the left lung base consistent with basilar atelectasis or infiltrate. Pneumonia should be considered. There is blunting of the left costophrenic angle consistent with a small left pleural effusion or pleural scar. The right lung is clear. No other significant findings. [id number] [facility]
--- NOTE | 2020-05-13 09:04 | CT ---
DATE OF SERVICE: 05/12/2020 CLINICAL DATA: Gross hematuria. UNENHANCED ABDOMEN AND PELVIC CT: Multislice acquisition through the abdomen and pelvis without IV or oral contrast was performed. Comparison is made to a prior exam dated 08/07/2017. The heart is enlarged. There are moderate coronary artery calcifications. There is a small left pleural effusion. There is atelectasis with consolidation in the left lung base. Pneumonia should be considered. The liver is normal size and homogeneous attenuation. No focal hepatic lesions. The gallbladder appears normal. The spleen appears normal. The pancreas is atrophic, otherwise unremarkable. The right and left adrenals appear normal. There is atrophy of both kidneys. There are small hyperdense lesions in the right kidney which are most likely hyperdense cysts. There is a large mixed density mass within the lower pole of the left kidney. It measures 17.3 cm in its maximum dimension. It has significantly increased in size from the prior exam. It does contain fluid-fluid levels. There is also mixed density material within the perirenal space on the left as well as within the anterior and posterior pararenal spaces. This most likely represents a large cyst with hemorrhage that extends into the perirenal space as well as the anterior and posterior pararenal spaces. Followup CT with contrast enhancement is recommended to exclude possibility of a neoplasm with hemorrhage. There is a Marshall catheter within the bladder. It appears grossly normal. No evidence of appendicitis. There is diffuse gastric wall thickening. This is probably related to nondistention. Gastritis or an infiltrating process should be considered. No free air. Minimal free fluid in the pelvis. No dilated loops of bowel. No adenopathy. No aortic aneurysm. IMPRESSION: Multiple abnormalities. See above recommendation. The patient's physician was notified of the findings by telephone and virtual radiologic preliminary radiology report. [id number] [facility]
== END 2020-05-12 21:29 ==
LOC: LB.ED 17:52
DX: D50.0 Iron deficiency anemia secondary to blood loss (chronic) (principal); I50.9 Heart failure, unspecified; S30.1XXA Contusion of abdominal wall, initial encounter; E11.9 Type 2 diabetes mellitus without complications; E66.01 Morbid (severe) obesity due to excess calories; Z79.4 Long term (current) use of insulin; Z79.01 Long term (current) use of anticoagulants; X58.XXXA Exposure to other specified factors, initial encounter
CPT/HCPCS: 36415; 36430; 71045; 74176; 81001; 86850; 86900; 86901; 86920; 86922; 93005; 99285-25; P9016; U0002

== ENCOUNTER 2020-05-22 14:08 | Inpatient (IN) | payer MEDICARE ==
[2020-05-22] MEDS ORDERED: Glucagon,Human Recombinant 1 MG Vial IM PRN (16:51)
[2020-05-22] MEDS ORDERED: Nystatin Topical Powder 15 GM Bottle TOP PRN (16:51)
[2020-05-22] MEDS ORDERED: 50% Dextrose in Water 50 ML Syringe IVPUSH PRN (16:51)
--- NOTE | 2020-05-22 18:05 | PCM.HP.2 ---
H&P History of Present Illness - General Admit Problem/Dx: Admission Diagnosis/Problem Admission Diagnosis/Problem Anemia - Related Data Allergies/Adverse Reactions: Allergies Allergy/AdvReac Type Severity Reaction Status Date / Time aspirin Allergy Nausea and Verified 05/12/20 18:14 Vomiting Penicillins Allergy Rash Verified 05/12/20 18:14 Home Medications: Home Meds Insulin Aspart [Novolog Flexpen] See Protocol SQ TIDMEALS 07/25/17 [History] Polyethylene Glycol 3350 [MiraLAX] 17 gm PO BEDTIME packet 07/26/17 [Rx] Omeprazole 40 mg PO DAILY 08/03/17 [History] Bisacodyl [Laxative Suppository] 10 mg RC DAILY 05/22/20 [History] Insulin Glarg,Human.Rec.Analog [Lantus Solostar] 30 units SUBCUT BEDTIME 05/22/20 [History] Levothyroxine [Synthroid] 88 mcg PO ACBREAKFAST 05/22/20 [History] Mupirocin Oint [Bactroban Oint] 22 gm TP DAILY 05/22/20 [History] Nystatin [Nystop] 1 gm TOP QID PRN 05/22/20 [History] Past Medical History HEENT History: Reports: Hard of Hearing, Impaired Vision Cardiovascular History: Reports: Heart Failure, Hypertension Respiratory History: Reports: COPD Gastrointestinal History: Reports: GERD Genitourinary History: Reports: Chronic Renal Insuffiency [employer]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: Musculoskeletal History: Reports: Arthritis Psychiatric History: Reports: Depression Endocrine/Metabolic History: Reports: Diabetes, Type II Hematologic History: Reports: Blood Transfusion(s) Dermatologic History: Reports: Other (See Below) Other Dermatologic History: reddened area under breasts and abdominal fold - Infectious Disease History Infectious Disease History: Reports: Chicken Pox Social & Family History - Family History Family Medical History: Noncontributory - Caffeine Use Caffeine Use: Reports: None - Living Situation & Occupation Living situation: Reports: , Extended Care Facility Occupation: Retired Exam - Vital Signs Vital Signs: Last Vital Signs Temp 37.3 C 05/22/20 17:46 Pulse 60 05/22/20 17:46 Resp 18 05/22/20 17:46 BP 120/72 05/22/20 17:46 Pulse Ox 100 05/22/20 17:46 Sepsis Event Note - Evaluation Sepsis Screening Result: No Definite Risk - Focused Exam Vital Signs: Vital Signs Temp Pulse Resp BP Pulse Ox 05/22/20 17:46 37.3 C 60 18 120/72 100 Orders Last 24hrs: Active Orders 24 hr Category Date Time Status Admission Status [Patient Status] [ADT] Routine ADT 05/22/20 16:54 Active Regular Diet [DIET] Diet 05/22/20 Dinner Ordered Dextrose 50% in Water Med 05/22/20 16:51 Active 50 ml IVPUSH ASDIRECTED PRN Glucagon,Human Recombinant [GlucaGen] Med 05/22/20 16:51 Active 1 mg IM ASDIRECTED PRN Insulin Aspart [NovoLOG] Med 05/22/20 18:00 Active See Protocol SUBCUT TIDMEALS Insulin Glarg,Human.Rec.Analog [LantUS Solostar] Med 05/22/20 20:00 Active 30 units SUBCUT BEDTIME Levothyroxine [Synthroid] Med 05/23/20 07:00 Active 88 mcg PO ACBREAKFAST Mupirocin Oint [Bactroban Oint] Med 05/23/20 08:00 Active 0 gm TOP DAILY Nystatin [Nystop] Med 05/22/20 16:51 Active 0 gm TOP QID PRN Omeprazole Med 05/23/20 07:00 Active 40 mg PO ACBREAKFAST bisacodyL [Dulcolax] Med 05/23/20 08:00 Active 10 mg RECTAL DAILY polyethylene glycoL 3350 [MiraLAX] Med 05/22/20 20:00 Active 17 gm PO BEDTIME Medication Orders Bisacodyl (Dulcolax) 10 mg RECTAL DAILY JEWEL Dextrose/Water (Dextrose 50% In Water) 50 ml IVPUSH ASDIRECTED PRN PRN Reason: Hypoglycemia Glucagon (Glucagen) 1 mg IM ASDIRECTED PRN PRN Reason: Hypoglycemia Insulin Aspart (Novolog) 0 unit SUBCUT TIDMEALS JEWEL; Protocol Insulin Glargine (Lantus Solostar) 30 units SUBCUT BEDTIME JEWEL Levothyroxine Sodium (Synthroid) 88 mcg PO ACBREAKFAST JEWEL Mupirocin (Bactroban Oint) 0 gm TOP DAILY JEWEL Nystatin (Nystop) 0 gm TOP QID PRN PRN Reason: Rash Omeprazole (Omeprazole) 40 mg PO ACBREAKFAST JEWEL Polyethylene Glycol (Miralax) 17 gm PO BEDTIME JEWEL
[2020-05-23] MEDS: Insulin Aspart 100 Units/ML 3 ML Pen SUBCUT SCH ×4 (06:31→17:28)
[2020-05-23] MEDS: Insulin Glargine,Human Rec. Analog 100 Units/ML 3 ML Pen SUBCUT SCH ×2 (06:32→22:31)
[2020-05-23] MEDS: Polyethylene Glycol 3350 Powder 17 GM Packet PO SCH ×2 (06:33→22:24)
[2020-05-23] MEDS: Omeprazole 20 MG Cap.CR PO SCH (07:56)
[2020-05-23] MEDS: Bisacodyl 10 MG Supp RECTAL SCH (07:57)
[2020-05-23] MEDS: Levothyroxine 88 MCG Tab PO SCH (07:57)
[2020-05-23] MEDS: Mupirocin Oint 22 GM Tube TOP SCH (11:10)
[2020-05-23] MEDS ORDERED: Tuberculin, PPD 5 Units/0.1 ML 1 ML MDV IDERM ONE (12:17)
[2020-05-24] MEDS: Levothyroxine 88 MCG Tab PO SCH (06:49)
[2020-05-24] MEDS: Omeprazole 20 MG Cap.CR PO SCH (06:49)
[2020-05-24] MEDS: Mupirocin Oint 22 GM Tube TOP SCH (07:51)
[2020-05-24] MEDS ORDERED: Non-Formulary Medication 1 Each (Omeprazole [Omeprazole] 40 MG) PO SCH (08:00)
[2020-05-24] MEDS: Insulin Aspart 100 Units/ML 3 ML Pen SUBCUT SCH ×3 (08:10→17:17)
[2020-05-24] MEDS: Bisacodyl 10 MG Supp RECTAL SCH (10:38)
[2020-05-24] MEDS: Insulin Glargine,Human Rec. Analog 100 Units/ML 3 ML Pen SUBCUT SCH (22:30)
[2020-05-25] MEDS: Polyethylene Glycol 3350 Powder 17 GM Packet PO SCH (04:12)
[2020-05-25] MEDS: Omeprazole 20 MG Cap.CR PO SCH (06:02)
[2020-05-25] MEDS: Levothyroxine 88 MCG Tab PO SCH (06:02)
[2020-05-25] MEDS: Mupirocin Oint 22 GM Tube TOP SCH (08:47)
[2020-05-25] MEDS: Bisacodyl 10 MG Supp RECTAL SCH (09:03)
[2020-05-25] MEDS: Insulin Aspart 100 Units/ML 3 ML Pen SUBCUT SCH ×2 (09:03→12:18)
[2020-05-25 10:50] VITALS: BP 108/71; PULSE 54
--- NOTE | 2020-05-25 11:42 | PCM.DCSUM1 ---
Discharge Summary - Discharge Data Discharge Date: 05/25/20 Discharge Disposition: DC/Tfer to SNF 03 Condition: Fair - Referral to Home Health Primary Care Physician: PCP None - Discharge Diagnosis/Problem(s) (1) [facility] resident SNOMED Code(s): 296598179 ICD Code: Z59.3 - PROBLEMS RELATED TO LIVING IN RESIDENTIAL INSTITUTION Status: Chronic Priority: High Current Visit: No - Patient Instructions Diet: Usual Diet as Tolerated Activity: Bedrest, May Use Bathroom - Discharge Plan *PRESCRIPTION DRUG MONITORING PROGRAM REVIEWED*: Not Applicable *COPY OF PRESCRIPTION DRUG MONITORING REPORT IN PATIENT HARSH: Not Applicable Home Medications: Home Meds Insulin Aspart [Novolog Flexpen] See Protocol SQ TIDMEALS 07/25/17 [History] Polyethylene Glycol 3350 [MiraLAX] 17 gm PO BEDTIME packet 07/26/17 [Rx] Omeprazole 40 mg PO DAILY 08/03/17 [History] Bisacodyl [Laxative Suppository] 10 mg RC DAILY 05/22/20 [History] Insulin Glarg,Human.Rec.Analog [Lantus Solostar] 30 units SUBCUT BEDTIME 05/22/20 [History] Levothyroxine [Synthroid] 88 mcg PO ACBREAKFAST 05/22/20 [History] Mupirocin Oint [Bactroban Oint] 22 gm TP DAILY 05/22/20 [History] Nystatin [Nystop] 1 gm TOP QID PRN 05/22/20 [History] - Discharge Summary/Plan Comment DC Time >30 min.: No Discharge Summary/Plan Comment: Continue to flush putnam catheter once a shift until light pink or clear without blood clots. Continue home medications as prescribed. - Patient Data Vitals - Most Recent: Last Vital Signs Temp 99.0 F 05/25/20 10:49 Pulse 54 L 05/25/20 10:49 Resp 18 05/25/20 10:49 BP 108/71 05/25/20 10:49 Pulse Ox 98 05/25/20 10:49 Weight - Most Recent: 333 lb 12.8 oz I&O - Last 24 hours: Intake & Output 05/24/20 05/25/20 05/25/20 22:59 06:59 14:59 Intake Total 900 Output Total 450 Balance 450 Lab Results - Last 24 hrs: Laboratory Results - last 24 hr 05/24/20 05/24/20 05/25/20 Range/Units 10:45 16:01 07:23 Hgb (11.5-16.5) g/dL Hct (37.0-47.0) % POC Glucose 245 H 212 H 230 H (74-110) mg/dL 05/25/20 Range/Units 07:55 Hgb 9.1 L D (11.5-16.5) g/dL Hct 31.1 L D (37.0-47.0) % POC Glucose (74-110) mg/dL Med Orders - Current: Current Medications Bisacodyl (Dulcolax) 10 mg RECTAL DAILY [facility] Last Admin: 05/25/20 09:03 Dose: Not Given Documented by: Dextrose/Water (Dextrose 50% In Water) 50 ml IVPUSH ASDIRECTED PRN PRN Reason: Hypoglycemia Glucagon (Glucagen) 1 mg IM ASDIRECTED PRN PRN Reason: Hypoglycemia Insulin Aspart (Novolog) 0 unit SUBCUT TIDMEALS [facility]; Protocol Last Admin: 05/25/20 09:03 Dose: 4 units Documented by: Insulin Glargine (Lantus Solostar) 30 units SUBCUT BEDTIME [facility] Last Admin: 05/24/20 22:30 Dose: 30 units Documented by: Levothyroxine Sodium (Synthroid) 88 mcg PO ACBREAKFAST [facility] Last Admin: 05/25/20 06:02 Dose: 88 mcg Documented by: Mupirocin (Bactroban Oint) 0 gm TOP DAILY [facility] Last Admin: 05/25/20 08:47 Dose: 1 applic Documented by: Nystatin (Nystop) 0 gm TOP QID PRN PRN Reason: Rash Omeprazole (Omeprazole) 40 mg PO ACBREAKFAST JEWEL Last Admin: 05/25/20 06:02 Dose: 40 mg Documented by: Polyethylene Glycol (Miralax) 17 gm PO BEDTIME [facility] Last Admin: 05/25/20 04:12 Dose: Not Given Documented by: Discontinued Medications Non-Formulary Medication (Omeprazole [Omeprazole]) 40 mg PO DAILY [facility] Tuberculin PPD (Aplisol) 5 unit IDERM ONETIME ONE Stop: 05/23/20 12:18 Last Admin: 05/23/20 12:24 Dose: 5 unit Documented by:
== END 2020-05-25 14:00 | DRG 812 ==
LOC: LB.MS 16:54
PROVIDERS: ADMIT Family Medicine; ATTEND Family Medicine
DX: D64.9 Anemia, unspecified (principal); I13.0 Hypertensive heart and chronic kidney disease with heart failure and stage 1 through stage 4 chronic kidney disease, or unspecified chronic kidney disease; H54.7 Unspecified visual loss; H91.90 Unspecified hearing loss, unspecified ear; I50.9 Heart failure, unspecified; J44.9 Chronic obstructive pulmonary disease, unspecified; K21.9 Gastro-esophageal reflux disease without esophagitis; N18.9 Chronic kidney disease, unspecified; M19.90 Unspecified osteoarthritis, unspecified site; E11.22 Type 2 diabetes mellitus with diabetic chronic kidney disease; Z88.6 Allergy status to analgesic agent; Z88.0 Allergy status to penicillin; Z79.4 Long term (current) use of insulin; Z79.890 Hormone replacement therapy; Z79.899 Other long term (current) drug therapy
CPT/HCPCS: 36415; 82962; 85014; 85018; 86580; A9270-GY